=== PATIENT | female | born 1950 | race African-American/Black ===

== ENCOUNTER 2016-06-06 20:30 | Emergency (ER) | payer MEDICAID ==
[2016-06-06 21:30] LABS: ABSOLUTE BASOPHILS # (AUTO) 0.1 10^3/uL (0.0-0.2); ABSOLUTE EOSINOPHILS # (AUTO) 0.2 10^3/uL (0.0-0.6); ABSOLUTE MONOCYTES (AUTO) 0.8 10^3/uL (0.1-1.4); ABSOLUTE NEUT (AUTO) 4.1 10^3/uL (1.7-8.2); BASOPHILS % (AUTO) 0.6 % (0-2); EOSINOPHILS % (AUTO) 2.3 % (0-6); HEMATOCRIT 35.6 % (36.0-47.0); HEMOGLOBIN 11.7 g/dL (12.0-15.5); HGB HCT DIFFERENCE -0.5; LYMPHOCYTES % (AUTO) 43.4 % (13-45); MEAN CORPUSCULAR HEMOGLOBIN 31.8 pg (27.0-33.4); MEAN CORPUSCULAR VOLUME 96 fl (80-97); MONOCYTES % (AUTO) 8.6 % (3-13); RED BLOOD COUNT 3.69 10^6/uL (3.72-5.28); RED CELL DISTRIBUTION WIDTH 16.3 % (11.5-14.0); SEGMENTED NEUTROPHILS % (AUTO) 45.1 % (42-78); WHITE BLOOD COUNT 9.1 10^3/uL (4.0-10.5)
[2016-06-06 21:35] LABS: ALANINE AMINOTRANSFERASE 18 U/L (9-52); ALBUMIN 4.4 g/dL (3.5-5.0); ALKALINE PHOSPHATASE 79 U/L (38-126); ANION GAP 17 (5-19); ASPARTATE AMINO TRANSFERASE 23 U/L (14-36); BILIRUBIN,TOTAL 0.4 mg/dL (0.2-1.3); BLOOD UREA NITROGEN 31 mg/dL (7-20); CALCIUM 9.3 mg/dL (8.4-10.2); CARBON DIOXIDE 21 mmol/L (22-30); CHLORIDE 105 mmol/L (98-107); CREATINE KINASE 143 U/L (30-135); CREATININE RESULT 2.33 mg/dL (0.52-1.25); GLUCOSE 103 mg/dL (75-110); POTASSIUM 3.4 mmol/L (3.6-5.0); SODIUM 143.1 mmol/L (137-145); TOTAL PROTEIN 7.9 g/dL (6.3-8.2)
[2016-06-06 22:19] LABS: VENOUS BLOOD BASE EXCESS -4.3 mmol/L; VENOUS BLOOD HCO3 21.7 mmol/L (20-32); VENOUS BLOOD PCO2 42.9 mmHg (35-63); VENOUS BLOOD PH 7.32 (7.30-7.42)
--- NOTE | 2016-06-06 22:42 | ER Document Report ---
ED General - General Stated Complaint: UNRESPONSIVE Cannot obtain history due to: Uncooperative, Other - Poor historian Notes: Patient is a 65-year-old female with past history of chronic kidney disease and prior CVA who presents by EMS family concerns "not acting right". The patient and her at the bedside are both very poor historians and are unable to clarify exactly why they called 911 today. states "she just didn't look right". EMS found patient initially have a mildly soft systolic blood pressure of 89 which should resolve without intervention. She did receive 2 mg of intranasal Narcan without change in her mental status. At time of arrival, patient is alert and oriented and does not know why she is here in the emergency department. She denies any symptoms. Family denies a history of similar events in the past. TRAVEL OUTSIDE OF THE [place] IN LAST 30 DAYS: No - Related Data Allergies/Adverse Reactions: No Known Allergies Allergy (Verified 05/18/13 21:31) Past Medical History - General Information source: Patient, Relative, Emergency Med Personnel - Social History Smoking Status: Current Every Day Smoker Frequency of alcohol use: None Drug Abuse: None Lives with: Spouse/Significant other Family History: Reviewed & Not Pertinent - Past Medical History Cardiac Medical History: Reports: Hx Hypercholesterolemia, Hx Hypertension Pulmonary Medical History: Reports: Hx Asthma, Hx COPD Neurological Medical History: Reports: Hx Cerebrovascular Accident Endocrine Medical History: Reports: Hx Diabetes Mellitus Type 1, Hx Diabetes Mellitus Type 2 Renal/ Medical History: Reports: Hx Renal Insufficiency GI Medical History: Reports: Hx Gastroesophageal Reflux Disease Musculoskeltal Medical History: Reports Hx Arthritis - Degenerative Psychiatric Medical History: Reports: Hx Dementia - Vascular dementia Denies: Hx Depression - Immunizations Hx Diphtheria, Pertussis, Tetanus Vaccination: Yes Hx Pneumococcal Vaccination: 06/04/12 Review of Systems - Review of Systems Notes: Constitutional: Negative for fever. HENT: Negative for sore throat. Eyes: Negative for visual changes. Cardiovascular: Negative for chest pain. Respiratory: Negative for shortness of breath. Gastrointestinal: Negative for abdominal pain, vomiting or diarrhea. Genitourinary: Negative for dysuria. Musculoskeletal: Negative for back pain. Skin: Negative for rash. Neurological: Negative for headaches, weakness or numbness. 10 point ROS negative except as marked above and in HPI. Physical Exam - Vital signs Vitals: Temp Resp BP 97.4 F 13 106/53 L 06/06/16 20:34 06/06/16 20:34 06/06/16 20:34 Interpretation: Normal Notes: PHYSICAL EXAMINATION: GENERAL: Frail in appearance in no acute distress. HEAD: Atraumatic, normocephalic. EYES: Pupils equal round and reactive to light, extraocular movements intact, sclera anicteric, conjunctiva are normal. ENT: nares patent, oropharynx clear without exudates. Moderately dry mucous membranes. NECK: Normal range of motion, supple without lymphadenopathy LUNGS: Breath sounds clear to auscultation bilaterally and equal. No wheezes rales or rhonchi. HEART: Regular rate and rhythm without murmurs ABDOMEN: Soft, nontender, normoactive bowel sounds. No guarding, no rebound. No masses appreciated. EXTREMITIES: Normal range of motion, no pitting or edema. No cyanosis. NEUROLOGICAL: Face symmetric. Tongue protrudes midline. Extraocular motions intact. Pupils are 2 mm and equally reactive. Normal speech, normal gait. 5 out of 5 strength in both the distal and proximal upper and lower extremities bilaterally. Sensation is grossly intact throughout. Finger to nose testing normal. Pronator drift normal. PSYCH: Alert and oriented 4 SKIN: Warm, Dry, normal turgor, no rashes or lesions noted. Course - Re-evaluation Re-evalutation: 06/07/16 03:51 Patient presents with multiple vague complaints that did not appear to be concerning for any acute life-threatening pathology. Vitals are within normal limits at triage and at time of discharge. Physical examination is unremarkable. Patient has tolerated oral intake without difficulty. Patient was not noted to be in distress at any point during their ER visit. At this time, based on the reassuring evaluation, I do not suspect an acute IA, pulmonary embolus, aortic dissection, acute intra-abdominal pathology, stroke, or sepsis.L Aboratories are patient's baseline. Chest x-ray is clear. EKG unremarkable. Will discharge with return precautions and follow-up recommendations. Verbal discharge instructions given a the bedside and opportunity for questions given. Medication warnings reviewed. Patient is in agreement with this plan and has verbalized understanding of return precautions and the need for primary care follow-up in the next 24-72 hours. - Vital Signs Vital signs: Temp Pulse Resp BP Pulse Ox 98.4 F 19 111/51 L 96 06/06/16 23:53 12/31/16 23:01 06/06/16 23:01 06/06/16 23:01 - Laboratory Result Diagrams: 06/06/16 20:40 06/06/16 20:40 Laboratory results interpreted by me: 06/06/16 06/06/16 20:40 20:40 RBC 3.69 L Hgb 11.7 L Hct 35.6 L RDW 16.3 H Potassium 3.4 L Carbon Dioxide 21 L BUN 31 H Creatinine 2.33 H Est GFR ( Amer) 25 L Est GFR (Non-Af Amer) 21 L Creatine Kinase 143 H - Diagnostic Test Radiology reviewed: Image reviewed, Reports reviewed Radiology results interpreted by me: 06/07/16 03:52 Chest x-ray: No acute infiltrate - EKG Interpretation by Me Additional EKG results interpreted by me: 06/07/16 03:52 Normal sinus rhythm. No ST elevations or depressions. Rate is 72. QTC 438 Discharge - Discharge Clinical Impression: Altered mental status Qualifiers: Altered mental status type: transient alteration of awareness Qualified Code(s) : R40.4 - Transient alteration of awareness Chronic kidney disease Qualifiers: Chronic kidney disease stage: unspecified stage Qualified Code(s): N18.9 - Chronic kidney disease, unspecified Condition: Good Disposition: HOME, SELF-CARE Additional Instructions: The exact cause of your episode of confusion today is unclear, but all of your labs appear to be at her baseline. Your creatinine is mildly elevated compared to your normal but not to a concerning level. You do need to follow up with your primary care physician regarding today's visit and your slightly worsened kidney function.Please return to the emergency room immediately if you experience any concerning symptoms including high fevers, severe headache, chest pain, difficulty breathing, abdominal pain, slurred speech, numbness or weakness in your arms or legs, or any other symptom that concerns you. Referrals: DANY BENAVIDES MD [Primary Care Provider] - Follow up tomorrow
--- NOTE | 2016-06-06 22:43 | EKG REPORT ---
SEVERITY:- NORMAL ECG - SINUS RHYTHM : Confirmed by: Simba Stokes MD 06-Jun-2016 22:43:03
[2016-06-06 23:04] VITALS: BP 111/51
== END 2016-06-07 02:56 | disposition home or self-care (01) ==
LOC: ER 20:30
DX: E11.22 Type 2 diabetes mellitus with diabetic chronic kidney disease (principal); I12.9 Hypertensive chronic kidney disease with stage 1 through stage 4 chronic kidney disease, or unspecified chronic kidney disease; N18.9 Chronic kidney disease, unspecified; R40.4 Transient alteration of awareness; J45.909 Unspecified asthma, uncomplicated; J44.9 Chronic obstructive pulmonary disease, unspecified; F17.200 Nicotine dependence, unspecified, uncomplicated; Z86.73 Personal history of transient ischemic attack (TIA), and cerebral infarction without residual deficits
CPT/HCPCS: 36415; 71010; 80053; 82550; 82803; 82962; 84484; 85025; 93005; 93010; 99285

== ENCOUNTER 2016-08-17 11:39 | Emergency (ER) | payer MEDICARE, MEDICAID ==
[2016-08-17] MEDS ORDERED: LIDOCAINE 5% (700 MG) TRANSDERMAL ADH..PATCH TP ONE (12:09)
[2016-08-17 13:30] LABS: ABSOLUTE EOSINOPHILS # (AUTO) 0.1 10^3/uL (0.0-0.6); ABSOLUTE MONOCYTES (AUTO) 1.2 10^3/uL (0.1-1.4); ABSOLUTE NEUT (AUTO) 6.4 10^3/uL (1.7-8.2); BASOPHILS % (AUTO) 0.3 % (0-2); EOSINOPHILS % (AUTO) 0.7 % (0-6); HEMATOCRIT 34.9 % (36.0-47.0); HEMOGLOBIN 11.7 g/dL (12.0-15.5); HGB HCT DIFFERENCE 0.2; LYMPHOCYTES % (AUTO) 20.2 % (13-45); MEAN CORPUSCULAR HEMOGLOBIN 31.6 pg (27.0-33.4); MEAN CORPUSCULAR HGB CONC 33.4 g/dL (32.0-36.0); MEAN CORPUSCULAR VOLUME 95 fl (80-97); MONOCYTES % (AUTO) 12.7 % (3-13); RED BLOOD COUNT 3.68 10^6/uL (3.72-5.28); RED CELL DISTRIBUTION WIDTH 14.9 % (11.5-14.0); SEGMENTED NEUTROPHILS % (AUTO) 66.1 % (42-78); WHITE BLOOD COUNT 9.7 10^3/uL (4.0-10.5)
[2016-08-17 13:44] LABS: ANION GAP 9 (5-19); BLOOD UREA NITROGEN 17 mg/dL (7-20); CARBON DIOXIDE 26 mmol/L (22-30); CHLORIDE 108 mmol/L (98-107); CREATINE KINASE 56 U/L (30-135); CREATININE RESULT 1.64 mg/dL (0.52-1.25); GLUCOSE 87 mg/dL (75-110); MAGNESIUM 1.8 mg/dL (1.6-2.3); POTASSIUM 4.7 mmol/L (3.6-5.0); SODIUM 142.5 mmol/L (137-145)
[2016-08-17 14:53] LABS: APPEARANCE,URINE CLEAR; BILIRUBIN,URINE NEGATIVE (NEGATIVE); GLUCOSE, URINE NEGATIVE (NEGATIVE); KETONES,URINE NEGATIVE (NEGATIVE); LEUKOCYTE ESTERASE,URINE NEGATIVE (NEGATIVE); NITRITE,URINE NEGATIVE (NEGATIVE); PROTEIN,URINE NEGATIVE (NEGATIVE); URINE SPECIFIC GRAVITY 1.006; UROBILINOGEN,URINE NEGATIVE mg/dL (<2.0)
[2016-08-17] MEDS ORDERED: TRAMADOL HCL 50 MG TABLET PO ONE (15:25)
[2016-08-17] MEDS ORDERED: PREDNISONE 20 MG TABLET PO ONE (18:30)
--- NOTE | 2016-08-17 18:36 | ER Document Report ---
ED General - General Chief Complaint: Other Stated Complaint: LEG PAIN TRAVEL OUTSIDE OF THE [place] IN LAST 30 DAYS: No - HPI Patient complains to provider of: right leg pain difficulty ambulating Notes: Patient presents with a history of vascular dementia stroke with right-sided weakness stating right leg pain. Most of the initial history of present illness was obtained by EMS stating that the patient apparently normally relates today is having pain therefore difficulty in him bleeding could not walk. Otherwise, evaluation patient is a noted 2-3 waxing waning patient is a delightful otherwise has no complaints. States that the pain starts in the back of her leg is elevated at her foot. Patient is able to show me her foot by bending her leg at the knee. - Related Data Allergies/Adverse Reactions: No Known Allergies Allergy (Verified 05/18/13 21:31) Past Medical History - Social History Smoking Status: Unknown if Ever Smoked Family History: Reviewed & Not Pertinent - Past Medical History Cardiac Medical History: Reports: Hx Hypercholesterolemia, Hx Hypertension Pulmonary Medical History: Reports: Hx Asthma, Hx COPD Neurological Medical History: Reports: Hx Cerebrovascular Accident Endocrine Medical History: Reports: Hx Diabetes Mellitus Type 1, Hx Diabetes Mellitus Type 2 Renal/ Medical History: Reports: Hx Renal Insufficiency GI Medical History: Reports: Hx Gastroesophageal Reflux Disease Musculoskeltal Medical History: Reports Hx Arthritis - Degenerative Psychiatric Medical History: Reports: Hx Dementia - Vascular dementia Denies: Hx Depression - Immunizations Hx Diphtheria, Pertussis, Tetanus Vaccination: Yes Hx Pneumococcal Vaccination: 06/04/12 Review of Systems - Review of Systems -: Yes ROS unobtainable due to patient's medical condition - History of dementia Physical Exam - Vital signs Vitals: Temp Pulse Resp BP Pulse Ox 98.4 F 96 16 119/57 L 98 08/17/16 11:45 08/17/16 11:45 08/17/16 11:45 08/17/16 11:45 08/17/16 11:45 Interpretation: Normal - General General appearance: Appears well, Alert - HEENT Head: Normocephalic, Atraumatic Eyes: Normal Pupils: PERRL - Respiratory Respiratory status: No respiratory distress Chest status: Nontender Breath sounds: Normal Chest palpation: Normal - Cardiovascular Rhythm: Regular Heart sounds: Normal auscultation Murmur: No - Abdominal Inspection: Normal Distension: No distension Bowel sounds: Normal Tenderness: Nontender Organomegaly: No organomegaly - Back Back: Normal, Nontender - Extremities General upper extremity: Normal inspection, Nontender, Normal color, Normal ROM , Normal temperature General lower extremity: Normal inspection, Nontender, Normal color, Other - Patient is able to lift her left leg off the stretcher. Patient is able to bend her right leg at the knee. Degenerative reflexes are intact bilaterally. She does have some pain to palpation of the right hip. 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 I did explain that I'm concerned patient may of had a cerebral incident however she would be out of the window for any thrombolytic therapy. is very concerned and very boisterous telemetry have to find out the reason why he is very assisted the patient normally is able ambulate. Upon further review of other notes patient does have a history of CVA with right -sided weakness. Unclear if this ever resolved. Unclear patient's examination today is chronic or new. I did discuss with patient's PCP head CT and workup showed no critical pathology. PCP Dr. Benavides recommended MRI plan being if MRI shows acute process to admit the patient if normal patient should be discharged home and follow-up in his office and home physical therapy set up. The MRI did not show any acute pathology did discuss with patient at bedside of the MRI results patient has been able to tolerate a meal here no signs of either stress patient again is able to bend her right leg at the knee. Explained that we will give her a prescription for a walker I will consult discharge planning for home physical therapy and that the patient should call her PCP for follow-up appointment tomorrow. Patient smiles and states agreement Later informed by nursing staff has called ER is very upset about being discharged home. Charge nurse to explained to patient that PCP will have to admit and at this time with a negative workup he would not admit the patient. 08/21/16 10:10 - Vital Signs Vital signs: Temp Pulse Resp BP Pulse Ox 98.6 F 73 14 125/63 96 08/17/16 23:14 08/17/16 23:14 08/17/16 23:14 08/17/16 23:14 08/17/16 23:14 - Laboratory Result Diagrams: 08/17/16 13:21 08/17/16 13:21 Laboratory results interpreted by me: 08/17/16 08/17/16 13:21 13:21 RBC 3.68 L Hgb 11.7 L Hct 34.9 L RDW 14.9 H Chloride 108 H Creatinine 1.64 H Est GFR ( Amer) 38 L Est GFR (Non-Af Amer) 32 L Discharge - Discharge Clinical Impression: leg pain, Abnormality of gait, Personal history of cerebrovascular accident with residual effects Condition: Good Disposition: HOME, SELF-CARE Instructions: Leg Pain Nonspecific ([facility]) Additional Instructions: At this time your CT scan of your head your MRI of her head your laboratory studies showed no clear etiology of why you're having pain your leg and difficulty in relating. X-ray of her hip is also negative. Possibility may be experiencing sciatica. I would highly recommend obtaining a walker taking medications as prescribed. I discussed your case with your primary care physician Dr. Benavides who agrees with this care plan. Please follow-up with his office tomorrow for follow-up appointment. We will also consult our resource management planner to have you evaluated for home physical therapy. Prescriptions: Prednisone [Deltasone 20 mg Tablet] 2 tab PO DAILY 4 Days Tramadol HCl [Ultram 50 mg Tablet] 50 mg PO ASDIR PRN #10 tablet PRN Reason: Walker [Ultra-Light Rollator] 1 each MC DAILY #1 each Referrals: DANY BENAVIDES MD [Primary Care Provider] - Follow up tomorrow
[2016-08-17 23:23] VITALS: BP 125/63
== END 2016-08-17 23:30 | disposition home or self-care (01) ==
LOC: ER 11:39
DX: I69.30 Unspecified sequelae of cerebral infarction (principal); M79.604 Pain in right leg; R53.1 Weakness; R26.9 Unspecified abnormalities of gait and mobility
CPT/HCPCS: 99284; 51701; 36415; 82550; 83735; 85025; 80048; 81001; 70551; 73502; 70450; A9270 ×2; J7512

== ENCOUNTER 2017-02-25 18:11 | Observation (INO) | payer MEDICARE, MEDICAID ==
--- NOTE | 2017-02-25 18:45 | ER Document Report ---
ED General - General Stated Complaint: CHEST PAIN Time Seen by Provider: 02/25/17 18:27 Mode of Arrival: Ambulatory Information source: Patient TRAVEL OUTSIDE OF THE [place] IN LAST 30 DAYS: No - HPI Patient complains to provider of: Chest pain, altered mental status Onset: Just prior to arrival Associated symptoms: Chest pain Notes: Patient is a 66-year-old female brought to the emergency room by EMS, EMS reports that her complaint was chest pain, however patient appears somewhat confused and is a very poor historian, review of previous records shows that patient does have a history of dementia, she reports having some chest pain earlier but it seems to be resolved at this point in time - Related Data Allergies/Adverse Reactions: No Known Allergies Allergy (Verified 02/25/17 20:04) Past Medical History - General Information source: Emergency Med Personnel - Social History Smoking Status: Unknown if Ever Smoked Family History: Reviewed & Not Pertinent - Past Medical History Cardiac Medical History: Reports: Hx Hypercholesterolemia, Hx Hypertension Pulmonary Medical History: Reports: Hx Asthma, Hx COPD Neurological Medical History: Reports: Hx Cerebrovascular Accident Endocrine Medical History: Reports: Hx Diabetes Mellitus Type 1, Hx Diabetes Mellitus Type 2 Renal/ Medical History: Reports: Hx Renal Insufficiency GI Medical History: Reports: Hx Gastroesophageal Reflux Disease Musculoskeltal Medical History: Reports Hx Arthritis - Degenerative Psychiatric Medical History: Reports: Hx Dementia - Vascular dementia Denies: Hx Depression - Immunizations Hx Diphtheria, Pertussis, Tetanus Vaccination: Yes Hx Pneumococcal Vaccination: 06/04/12 Review of Systems - Review of Systems -: Yes ROS unobtainable due to patient's medical condition Cardiovascular: Chest pain Neurological/Psychological: Confusion Physical Exam - Vital signs Vitals: Resp Pulse Ox 18 95 02/25/17 19:00 02/25/17 19:00 Interpretation: Normal - General General appearance: Alert In distress: None - HEENT Head: Normocephalic, Atraumatic Eyes: Normal Conjunctiva: Normal Extraocular movements intact: Yes Eyelashes: Normal Pupils: PERRL Mucous membranes: Dry - Respiratory Respiratory status: No respiratory distress Chest status: Nontender Breath sounds: Normal Chest palpation: Normal - Cardiovascular Rhythm: Regular Heart sounds: Normal auscultation Murmur: No - Abdominal Inspection: Normal Distension: No distension Bowel sounds: Normal Tenderness: Nontender Organomegaly: No organomegaly - Back Back: Normal, Nontender - Extremities General upper extremity: Normal inspection General lower extremity: Normal inspection - Neurological Cognition: Confused Qasim Coma Scale Eye Opening: Spontaneous Qasim Coma Scale Verbal: Confused Qasim Coma Scale Motor: Obeys Commands [place] Coma Scale Total: 14 - Skin Skin Temperature: Warm Skin Moisture: Dry Skin Color: Normal Course - Re-evaluation Re-evalutation: 02/25/17 21:56 Patient was discussed with primary care provider, Dr. Lala, who reports that her mental status fluctuates but he is agreeable to placing patient in the hospital on observation status for acute renal insufficiency with hypokalemia - Vital Signs Vital signs: Temp Pulse Resp BP Pulse Ox 97.6 F 14 108/55 L 100 02/25/17 22:29 02/25/17 23:00 02/25/17 23:00 02/25/17 23:00 - Laboratory Result Diagrams: 02/25/17 20:35 02/25/17 20:35 Laboratory results interpreted by me: 02/25/17 02/25/17 02/25/17 20:35 20:35 21:30 RBC 3.60 L Hgb 11.2 L Hct 32.0 L RDW 16.5 H Potassium 2.6 L* BUN 23 H Creatinine 2.12 H Est GFR ( Amer) 28 L Est GFR (Non-Af Amer) 23 L Lactic Acid 2.5 H Direct Bilirubin 0.5 H - Diagnostic Test Radiology reviewed: Image reviewed, Reports reviewed - EKG Interpretation by Me Rate: Normal Rhythm: A.Fib - Transfer of Care Care transferred to following provider: Dr. Lala Discharge - Discharge Clinical Impression: Encephalopathy, Acute kidney injury, Hypokalemia Condition: Stable Disposition: ADMITTED OBSERVATION Admitting Provider: Dai Unit Admitted: Telemetry
--- NOTE | 2017-02-25 20:08 | RADIOLOGY REPORT (SQ) ---
EXAM DESCRIPTION: CT HEAD WITHOUT COMPLETED DATE/TIME: 02/25/2017 8:00 pm REASON FOR STUDY: ams COMPARISON: None. TECHNIQUE: Axial images acquired through the brain without intravenous contrast. Images reviewed wi th bone, brain and subdural windows. Images stored on PACS. All CT scanners at this facility use dose modulation, iterative reconstruction, and/or weight based d osing when appropriate to reduce radiation dose to as low as reasonably achievable (ALARA). [facility]: Dose Right [facility]: CareDose [facility]: Dose Right [facility]: Teradose 4D [facility]: Movea RADIATION DOSE: Up-to-date CT equipment and radiation dose reduction techniques were employed. CTDIv ol: 64.6 mGy. DLP: 1034 mGy-cm.mGy. LIMITATIONS: None. FINDINGS: VENTRICLES: Prominent. CEREBRUM: No masses. No hemorrhage. No midline shift. Areas of low density in the white matter mos t likely due to chronic micro-vascular ischemic change. No evidence for acute infarction. CEREBELLUM: No masses. No hemorrhage. No alteration of density. No evidence for acute infarction. EXTRAAXIAL SPACES: Age-related involutional change. No fluid collections. No masses. ORBITS AND GLOBE: No intra- or extraconal masses. Normal contour of globe without masses. CALVARIUM: No fracture. PARANASAL SINUSES: No fluid or mucosal thickening. SOFT TISSUES: No mass or hematoma. OTHER: No other significant finding. IMPRESSION: CHRONIC CHANGES OF ATROPHY AND MICROVASCULAR ISCHEMIA. NO ACUTE PROCESS. EVIDENCE OF ACUTE STROKE: NO. TECHNICAL DOCUMENTATION: JOB ID: [id number] Quality ID # [id number]: Final reports with documentation of one or more dose reduction techniques (e.g., Au tomated exposure control, adjustment of the mA and/or kV according to patient size, use of iterative reconstruction technique) 2010 [employer]- All Rights Reserved
--- NOTE | 2017-02-25 20:11 | RADIOLOGY REPORT (SQ) ---
EXAM DESCRIPTION: CHEST SINGLE VIEW COMPLETED DATE/TIME: 02/25/2017 8:03 pm REASON FOR STUDY: cp COMPARISON: 06/06/2016 EXAM PARAMETERS: NUMBER OF VIEWS: One view. TECHNIQUE: Single frontal radiographic view of the chest acquired. RADIATION DOSE: NA LIMITATIONS: None. FINDINGS: LUNGS AND PLEURA: No opacities, masses or pneumothorax. No pleural effusion. MEDIASTINUM AND HILAR STRUCTURES: No masses. Contour normal. HEART AND VASCULAR STRUCTURES: Heart normal in size. Normal vasculature. BONES: No acute findings. HARDWARE: None in the chest. OTHER: No other significant finding. IMPRESSION: NO ACUTE RADIOGRAPHIC FINDING IN THE CHEST. TECHNICAL DOCUMENTATION: JOB ID: [id number]
[2017-02-25 20:51] LABS: ABSOLUTE BASOPHILS # (AUTO) 0.1 10^3/uL (0.0-0.2); ABSOLUTE EOSINOPHILS # (AUTO) 0.1 10^3/uL (0.0-0.6); ABSOLUTE LYMPHOCYTES (AUTO) 3.6 10^3/uL (0.5-4.7); ABSOLUTE MONOCYTES (AUTO) 0.5 10^3/uL (0.1-1.4); ABSOLUTE NEUT (AUTO) 4.1 10^3/uL (1.7-8.2); BASOPHILS % (AUTO) 1.5 % (0-2); EOSINOPHILS % (AUTO) 1.7 % (0-6); HEMOGLOBIN 11.2 g/dL (12.0-15.5); HGB HCT DIFFERENCE 1.6; LYMPHOCYTES % (AUTO) 42.7 % (13-45); MEAN CORPUSCULAR HGB CONC 34.9 g/dL (32.0-36.0); MEAN CORPUSCULAR VOLUME 89 fl (80-97); MONOCYTES % (AUTO) 6.4 % (3-13); RED CELL DISTRIBUTION WIDTH 16.5 % (11.5-14.0); SEGMENTED NEUTROPHILS % (AUTO) 47.7 % (42-78); WHITE BLOOD COUNT 8.5 10^3/uL (4.0-10.5)
[2017-02-25 21:16] LABS: ALANINE AMINOTRANSFERASE 27 U/L (9-52); ALBUMIN 3.7 g/dL (3.5-5.0); ALKALINE PHOSPHATASE 87 U/L (38-126); ANION GAP 15 (5-19); ASPARTATE AMINO TRANSFERASE 15 U/L (14-36); BILIRUBIN,DIRECT 0.5 mg/dL (0.0-0.4); BILIRUBIN,TOTAL 0.7 mg/dL (0.2-1.3); BLOOD UREA NITROGEN 23 mg/dL (7-20); CALCIUM 9.4 mg/dL (8.4-10.2); CARBON DIOXIDE 23 mmol/L (22-30); CHLORIDE 100 mmol/L (98-107); CREATINE KINASE 42 U/L (30-135); CREATININE RESULT 2.12 mg/dL (0.52-1.25); GLUCOSE 85 mg/dL (75-110); LIPASE 58.4 U/L (23-300); SODIUM 137.7 mmol/L (137-145); TOTAL PROTEIN 6.8 g/dL (6.3-8.2)
[2017-02-25 21:20] LABS: POTASSIUM 2.6 mmol/L (3.6-5.0)
[2017-02-25 21:21] LABS: CREATINE KINASE MB < 0.22 ng/mL (<4.55); TROPONIN I < 0.012 ng/mL
[2017-02-25 21:21] LABS: APPEARANCE,URINE CLEAR; BILIRUBIN,URINE NEGATIVE (NEGATIVE); GLUCOSE, URINE NEGATIVE (NEGATIVE); KETONES,URINE NEGATIVE (NEGATIVE); LEUKOCYTE ESTERASE,URINE NEGATIVE (NEGATIVE); NITRITE,URINE NEGATIVE (NEGATIVE); PROTEIN,URINE NEGATIVE (NEGATIVE); URINE SPECIFIC GRAVITY 1.004; UROBILINOGEN,URINE NEGATIVE mg/dL (<2.0)
[2017-02-25] MEDS ORDERED: POTASSIUM CHLORIDE 10 MEQ TABLET.SA PO ONE (21:39)
[2017-02-25 21:40] LABS: PARTIAL THROMBOPLASTIN TIME 34.5 SEC (23.5-35.8); PROTHROMBIN TIME 14.6 SEC (11.4-15.4)
[2017-02-25 21:41] LABS: URINE BARBITURATES SCREEN NEGATIVE; URINE METHADONE SCREEN NEGATIVE; URINE OPIATES LOW NEGATIVE; URINE PHENCYCLIDINE SCREEN NEGATIVE
[2017-02-25 22:03] LABS: VENOUS BLOOD BASE EXCESS -1.4 mmol/L; VENOUS BLOOD HCO3 25.2 mmol/L (20-32); VENOUS BLOOD PCO2 49.6 mmHg (35-63); VENOUS BLOOD PH 7.32 (7.30-7.42)
[2017-02-25] MEDS: POTASSI CL 20 MEQ/50 ML RIDER 20 MEQ/50 ML RTUPB IV SCH (22:45)
[2017-02-26] MEDS ORDERED: POTASSI CL 20 MEQ/50 ML RIDER 20 MEQ/50 ML RTUPB IV ONE (01:10)
[2017-02-26] MEDS: POTASSI CL 20 MEQ/50 ML RIDER 20 MEQ/50 ML RTUPB IV SCH (01:11)
[2017-02-26 02:33] LABS: ANION GAP 13 (5-19); BLOOD UREA NITROGEN 23 mg/dL (7-20); CALCIUM 9.3 mg/dL (8.4-10.2); CARBON DIOXIDE 26 mmol/L (22-30); CHLORIDE 105 mmol/L (98-107); CREATINE KINASE 39 U/L (30-135); CREATININE RESULT 2.14 mg/dL (0.52-1.25); GLUCOSE 93 mg/dL (75-110); SODIUM 143.5 mmol/L (137-145)
[2017-02-26 02:56] LABS: CREATINE KINASE MB < 0.22 ng/mL (<4.55); TROPONIN I < 0.012 ng/mL
[2017-02-26 07:08] LABS: ANION GAP 9 (5-19); BLOOD UREA NITROGEN 23 mg/dL (7-20); CALCIUM 9.3 mg/dL (8.4-10.2); CARBON DIOXIDE 25 mmol/L (22-30); CHLORIDE 110 mmol/L (98-107); CREATININE RESULT 2.01 mg/dL (0.52-1.25); GLUCOSE 87 mg/dL (75-110); POTASSIUM 3.3 mmol/L (3.6-5.0); SODIUM 143.8 mmol/L (137-145)
--- NOTE | 2017-02-26 07:21 | EKG REPORT ---
SEVERITY:- ABNORMAL ECG - SINUS RHYTHM NONSPECIFIC T ABNORMALITIES, LATERAL LEADS BORDERLINE PROLONGED QT INTERVAL : Confirmed by: Simba Stokes MD 26-Feb-2017 07:20:53
[2017-02-26] MEDS ORDERED: 1/2 NORMAL SALINE 1,000 ML IV PRN (08:01)
[2017-02-26] MEDS ORDERED: MEMANTINE HCL PO PRN (17:31)
[2017-02-26] MEDS ORDERED: (PENDING PHARMACY ID) (Nifedipine [Nifedipine Er] 90 MG) PO SCH (17:45)
[2017-02-26] MEDS ORDERED: (PENDING PHARMACY ID) (Pramipexole Di-Hcl [Pramipexole Dihydrochloride] 0.125 MG) PO SCH (17:45)
[2017-02-26] MEDS ORDERED: (PENDING PHARMACY ID) (Losartan/Hydrochlorothiazide [Losartan-Hctz 100-25 Mg Tab] 1 TAB) PO SCH (17:45)
[2017-02-26 18:09] LABS: ANION GAP 16 (5-19); BLOOD UREA NITROGEN 23 mg/dL (7-20); CALCIUM 9.5 mg/dL (8.4-10.2); CARBON DIOXIDE 22 mmol/L (22-30); CHLORIDE 107 mmol/L (98-107); CREATININE RESULT 1.72 mg/dL (0.52-1.25); GLUCOSE 74 mg/dL (75-110); POTASSIUM 3.7 mmol/L (3.6-5.0); SODIUM 144.6 mmol/L (137-145)
--- NOTE | 2017-02-26 19:00 | PDOC H&P ---
History of Present Illness Admission Date/PCP: 02/25/17 23:42 DANY BENAVIDES MD History of Present Illness: MICAH WOMACK is a 66 year old female, she has a history of vascular dementia, type 2 diabetes mellitus complicated with chronic kidney disease stage III she came to the emergency room last night for evaluation of confusion , she is a poor historian, in the emergency room she was found to have hypokalemia, potassium 2.6 and elevated serum creatinine. She was admitted for evaluation and management. When I saw her on the floor she is oriented to time place or person she knows who I am and she wants to go home. She has no chest pain or shortness of breath there is no syncope. Past Medical History Cardiac Medical History: Reports: Hyperlipidema, Hypertension Pulmonary Medical History: Reports: Asthma, Chronic Obstructive Pulmonary Disease (COPD) Endocrine Medical History: Reports: Diabetes Mellitus Type 2 GI Medical History: Reports: Gastroesophageal Reflux Disease Musculoskeltal Medical History: Reports: Arthritis - Degenerative Psychiatric Medical History: Reports: Dementia - Vascular dementia Social History Lives with: Spouse/Significant other Smoking Status: Current Every Day Smoker Frequency of Alcohol Use: None Hx Recreational Drug Use: No Drugs: None Hx Prescription Drug Abuse: No - Advance Directive Resuscitation Status: Full Code Family History Family History: Reviewed & Not Pertinent Parental Family History Reviewed: Yes Children Family History Reviewed: Yes Sibling(s) Family History Reviewed.: Yes Medication/Allergy Home Medications: Aspirin/Dipyridamole [Aggrenox 25 mg/200 mg Capsule SA] 1 cap.sr PO Q12 Atorvastatin Calcium [Lipitor 20 mg Tablet] 20 mg PO QHS 02/26/17 Cyanocobalamin (Vitamin B-12) [Vitamin B-12 Inj 1000 Mcg/1 ml Vial] 1,000 mcg IM .MONTHLY 02/26/17 Donepezil HCl [Aricept 5 mg Tablet] 5 mg PO DAILY 02/26/17 Exenatide Microspheres [Bydureon Pen] 2 mg SQ MO@1000 02/26/17 Exenatide [Byetta Inj 10 Mcg/0.04 ml 2.4 ml Pen.injctr] 10 mcg SUBCUT BIDACBS Glipizide [Glocotrol 5 Mg Tablet] 5 mg PO DAILY 02/26/17 Losartan/Hydrochlorothiazide [Losartan-Hctz 100-25 mg Tab] 1 tab PO DAILY Memantine HCl [Namenda] 1 each PO ASDIR PRN 02/26/17 Nifedipine [Nifedipine ER] 90 mg PO DAILY 02/26/17 Pioglitazone HCl [Actos 15 mg Tablet] 15 mg PO DAILY 02/26/17 Pramipexole Di-HCl [Pramipexole Dihydrochloride] 0.125 mg PO Q12 02/26/17 Trazodone HCl [Desyrel 50 mg Tablet] 50 mg PO QHS 02/26/17 Allergies/Adverse Reactions: No Known Allergies Allergy (Verified 02/25/17 20:04) Review of Systems Cardiovascular: ABSENT: chest pain, dyspnea on exertion, edema, orthropnea, palpitations Respiratory: ABSENT: cough, hemoptysis Gastrointestinal: ABSENT: abdominal pain, constipation, diarrhea, hematemesis, hematochezia, nausea, vomiting Genitourinary: ABSENT: dysuria, hematuria Musculoskeletal: ABSENT: joint swelling Integumentary: ABSENT: rash, wounds Neurological: ABSENT: abnormal gait, abnormal speech, confusion, dizziness, focal weakness, syncope Psychiatric: ABSENT: anxiety, depression, homidical ideation, suicidal ideation Endocrine: ABSENT: cold intolerance, heat intolerance, menstrual abnormalities, polydipsia, polyuria Hematologic/Lymphatic: ABSENT: easy bleeding, easy bruising, lymphadenopathy Physical Exam Vital Signs: Temp Pulse Resp BP Pulse Ox 97.5 F 83 16 101/58 L 100 02/26/17 16:16 02/26/17 16:16 02/26/17 16:16 02/26/17 16:16 02/26/17 16:16 Intake & Output 02/25/17 02/26/17 02/27/17 06:59 06:59 06:59 Intake Total 240 480 Balance 240 480 General appearance: PRESENT: no acute distress, well-developed, well-nourished Head exam: PRESENT: atraumatic, normocephalic Eye exam: PRESENT: PERRLA Ear exam: PRESENT: normal external ear exam Mouth exam: PRESENT: moist Neck exam: PRESENT: full ROM Cardiovascular exam: PRESENT: RRR, +S1, +S2 Vascular exam: PRESENT: normal capillary refill GI/Abdominal exam: PRESENT: normal bowel sounds, soft Rectal exam: PRESENT: deferred Neurological exam: PRESENT: alert, CN II-XII grossly intact Psychiatric exam: PRESENT: appropriate affect, normal mood Skin exam: PRESENT: dry, intact, warm Results Laboratory Results: 02/26/17 17:46 02/26/17 02/26/17 02/26/17 02:08 02:08 06:00 Sodium 143.5 143.8 Potassium 3.0 L* 3.3 L Chloride 105 110 H Carbon Dioxide 26 25 Anion Gap 13 9 BUN 23 H 23 H Creatinine 2.14 H 2.01 H Est GFR ( Amer) 28 L 30 L Est GFR (Non-Af Amer) 23 L 25 L Glucose 93 87 Lactic Acid 2.7 H Calcium 9.3 9.3 02/26/17 17:46 Sodium 144.6 Potassium 3.7 Chloride 107 Carbon Dioxide 22 Anion Gap 16 BUN 23 H Creatinine 1.72 H Est GFR ( Amer) 36 L Est GFR (Non-Af Amer) 30 L Glucose 74 L Lactic Acid Calcium 9.5 02/26/17 02/26/17 02:08 02:08 Creatine Kinase 39 CK-MB (CK-2) < 0.22 Troponin I < 0.012 Impressions: Chest X-Ray 02/25/17 18:44 IMPRESSION: NO ACUTE RADIOGRAPHIC FINDING IN THE CHEST. Head CT 02/25/17 18:44 IMPRESSION: CHRONIC CHANGES OF ATROPHY AND MICROVASCULAR ISCHEMIA. NO ACUTE PROCESS. EVIDENCE OF ACUTE STROKE: NO. Assessment & Plan - Diagnosis (1) Hypokalemia Is this a current diagnosis for this admission?: Yes Plan: Patient is admitted for observation and admission the potassium is 2.6, (2) Acute kidney injury Is this a current diagnosis for this admission?: Yes Plan: She has acute kidney injury due to dehydration (3) Vascular dementia Qualifiers: Dementia behavioral disturbance: without behavioral disturbance Is this a current diagnosis for this admission?: Yes
--- NOTE | 2017-02-26 19:03 | PDOC DISCHARGE SUMMARY ---
General - Admit/Disc Date/PCP Admission Date/Primary Care Provider: 02/25/17 23:42 DANY BENAVIDES MD Discharge Date: 02/26/17 - Discharge Diagnosis (1) Hypokalemia Is this a current diagnosis for this admission?: Yes (2) Acute kidney injury Is this a current diagnosis for this admission?: Yes (3) Vascular dementia Is this a current diagnosis for this admission?: Yes - Additional Information Resuscitation Status: Full Code Home Medications: Aspirin/Dipyridamole [Aggrenox 25 mg/200 mg Capsule SA] 1 cap.sr PO Q12 Atorvastatin Calcium [Lipitor 20 mg Tablet] 20 mg PO QHS 02/26/17 Cyanocobalamin (Vitamin B-12) [Vitamin B-12 Inj 1000 Mcg/1 ml Vial] 1,000 mcg IM .MONTHLY 02/26/17 Donepezil HCl [Aricept 5 mg Tablet] 5 mg PO DAILY 02/26/17 Exenatide Microspheres [Bydureon Pen] 2 mg SQ MO@1000 02/26/17 Exenatide [Byetta Inj 10 Mcg/0.04 ml 2.4 ml Pen.injctr] 10 mcg SUBCUT BIDACBS Glipizide [Glucotrol 5 mg Tablet] 5 mg PO DAILY 02/26/17 Losartan/Hydrochlorothiazide [Losartan-Hctz 100-25 mg Tab] 1 tab PO DAILY Memantine HCl [Namenda] 1 each PO ASDIR PRN 02/26/17 Nifedipine [Nifedipine ER] 90 mg PO DAILY 02/26/17 Pioglitazone HCl [Actos 15 mg Tablet] 15 mg PO DAILY 02/26/17 Pramipexole Di-HCl [Pramipexole Dihydrochloride] 0.125 mg PO Q12 02/26/17 Trazodone HCl [Desyrel 50 mg Tablet] 50 mg PO QHS 02/26/17 History of Present Illness History of Present Illness: MICAH WOMACK is a 66 year old female, she has a history of vascular dementia, type 2 diabetes mellitus complicated with chronic kidney disease stage III she came to the emergency room last night for evaluation of confusion , she is a poor historian, in the emergency room she was found to have hypokalemia, potassium 2.6 and elevated serum creatinine. She was admitted for evaluation and management. When I saw her on the floor she is oriented to time place or person she knows who I am and she wants to go home. She has no chest pain or shortness of breath there is no syncope. Hospital Course Hospital Course: She was admitted for observation for the management of hyperkalemia, acute kidney injury. The potassium was corrected with IV and p.o. replacement therapy , she was treated with IV fluid for the correlation of the kidney injury, patient was agreeable to be discharged home today Physical Exam Vital Signs: Temp Pulse Resp BP Pulse Ox 97.5 F 83 16 101/58 L 100 02/26/17 16:16 02/26/17 16:16 02/26/17 16:16 02/26/17 16:16 02/26/17 16:16 Intake & Output 02/25/17 02/26/17 02/27/17 06:59 06:59 06:59 Intake Total 240 480 Balance 240 480 General appearance: PRESENT: no acute distress Eye exam: PRESENT: PERRLA Respiratory exam: PRESENT: clear to auscultation chris Cardiovascular exam: PRESENT: +S1, +S2 GI/Abdominal exam: PRESENT: soft Neurological exam: PRESENT: alert Results Laboratory Results: 02/26/17 17:46 02/26/17 02/26/17 02/26/17 02:08 02:08 06:00 Sodium 143.5 143.8 Potassium 3.0 L* 3.3 L Chloride 105 110 H Carbon Dioxide 26 25 Anion Gap 13 9 BUN 23 H 23 H Creatinine 2.14 H 2.01 H Est GFR ( Amer) 28 L 30 L Est GFR (Non-Af Amer) 23 L 25 L Glucose 93 87 Lactic Acid 2.7 H Calcium 9.3 9.3 02/26/17 17:46 Sodium 144.6 Potassium 3.7 Chloride 107 Carbon Dioxide 22 Anion Gap 16 BUN 23 H Creatinine 1.72 H Est GFR ( Amer) 36 L Est GFR (Non-Af Amer) 30 L Glucose 74 L Lactic Acid Calcium 9.5 02/26/17 02/26/17 02:08 02:08 Creatine Kinase 39 CK-MB (CK-2) < 0.22 Troponin I < 0.012 Impressions: Chest X-Ray 02/25/17 18:44 IMPRESSION: NO ACUTE RADIOGRAPHIC FINDING IN THE CHEST. Head CT 02/25/17 18:44 IMPRESSION: CHRONIC CHANGES OF ATROPHY AND MICROVASCULAR ISCHEMIA. NO ACUTE PROCESS. EVIDENCE OF ACUTE STROKE: NO.
[2017-02-26] MEDS ORDERED: GLIPIZIDE 5 MG TABLET PO ONE (19:30)
[2017-02-26] MEDS ORDERED: ASPIRIN/DIPYRIDAMOLE 25-200 MG 1 CAP.SR CPMP.12HR PO ONE (19:30)
[2017-02-26] MEDS ORDERED: PIOGLITAZONE HCL 15 MG TABLET PO ONE (19:30)
[2017-02-26] MEDS ORDERED: DONEPEZIL HCL 5 MG TABLET PO ONE (19:30)
[2017-02-26 19:35] VITALS: BP 113/52
[2017-02-26] MEDS ORDERED: ATORVASTATIN CALCIUM 20 MG TABLET PO SCH (22:00)
[2017-02-26] MEDS ORDERED: PRAMIPEXOLE DI-HCL 0.25 MG TABLET PO SCH (22:00)
[2017-02-26] MEDS ORDERED: TRAZODONE HCL 50 MG TABLET PO SCH (22:00)
[2017-02-27] MEDS ORDERED: GLIPIZIDE 5 MG TABLET PO SCH (08:00)
[2017-02-27] MEDS ORDERED: HYDROCHLOROTHIAZIDE 25 MG TABLET PO SCH (10:00)
[2017-02-27] MEDS ORDERED: LOSARTAN POTASSIUM 50 MG TABLET PO SCH (10:00)
[2017-02-27] MEDS ORDERED: DONEPEZIL HCL 5 MG TABLET PO SCH (10:00)
[2017-02-27] MEDS ORDERED: NIFEDIPINE 30 MG TAB.ER.24 PO SCH (10:00)
[2017-02-27] MEDS ORDERED: PIOGLITAZONE HCL 15 MG TABLET PO SCH (10:00)
[2017-02-27] MEDS ORDERED: ASPIRIN/DIPYRIDAMOLE 25-200 MG 1 CAP.SR CPMP.12HR PO SCH (10:00)
[2017-03-01] MEDS ORDERED: (PENDING PHARMACY ID) (Exenatide Microspheres [Bydureon Pen] 2 MG) SQ SCH (10:00)
[2017-03-25] MEDS ORDERED: CYANOCOBALAMIN (VITAMIN B-12) INJ 1000 MCG/1 ML VIAL IM SCH (10:00)
== END 2017-02-26 21:57 | disposition home or self-care (01) ==
LOC: ER 18:11 → EH 22:00 → UNDOADMOB 22:00 → 4N 23:36 → EH 23:36 → 4N 23:42 → EH 23:42
PROVIDERS: ADMIT Internal Medicine; ATTEND Internal Medicine
DX: E87.6 Hypokalemia (principal); F01.50 Vascular dementia, unspecified severity, without behavioral disturbance, psychotic disturbance, mood disturbance, and anxiety; E86.0 Dehydration; N17.9 Acute kidney failure, unspecified; N18.3 Chronic kidney disease, stage 3 (moderate); E11.22 Type 2 diabetes mellitus with diabetic chronic kidney disease; I12.9 Hypertensive chronic kidney disease with stage 1 through stage 4 chronic kidney disease, or unspecified chronic kidney disease; M19.90 Unspecified osteoarthritis, unspecified site; F17.200 Nicotine dependence, unspecified, uncomplicated; I48.91 Unspecified atrial fibrillation; E78.5 Hyperlipidemia, unspecified; Z79.82 Long term (current) use of aspirin; Z79.899 Other long term (current) drug therapy; Z79.84 Long term (current) use of oral hypoglycemic drugs; Z86.73 Personal history of transient ischemic attack (TIA), and cerebral infarction without residual deficits
CPT/HCPCS: 36415; 51701; 70450; 71010; 80048; 80053; 80307; 81001; 82550; 82553; 82803; 83605; 83690; 83735; 83880; 84484; 85025; 85610; 85730; 87040; 87086; 93005; 93010; 96365; 99285; G0378; J3480

== ENCOUNTER 2017-03-16 11:51 | Inpatient (IN) | payer MEDICARE, MEDICAID ==
--- NOTE | 2017-03-16 12:01 | ER Document Report ---
ED General - General Stated Complaint: UNRESPONSIVE Time Seen by Provider: 03/16/17 11:54 Mode of Arrival: Ambulatory Information source: Patient, Relative Cannot obtain history due to: Altered mental status Notes: 66 yr old female presents with complaints of unresponsiveness. Pt was noted by significant other to be shaking not responding appropriately. He denies a history of seizures, patient was sternally rubbed and did not respond, patient was brought in emergency traffic TRAVEL OUTSIDE OF THE [place] IN LAST 30 DAYS: No - HPI Onset: Just prior to arrival Onset/Duration: Sudden Quality of pain: No pain Severity: Severe Pain Level: Denies Associated symptoms: Weakness Exacerbated by: Denies Relieved by: Denies Similar symptoms previously: Yes Recently seen / treated by doctor: Yes - Related Data Allergies/Adverse Reactions: No Known Allergies Allergy (Verified 03/16/17 12:45) Past Medical History - Social History Smoking Status: Never Smoker Cigarette use (# per day): No Chew tobacco use (# tins/day): No Smoking Education Provided: No Family History: Reviewed & Not Pertinent - Past Medical History Cardiac Medical History: Reports: Hx Hypercholesterolemia, Hx Hypertension Pulmonary Medical History: Reports: Hx Asthma, Hx COPD Neurological Medical History: Reports: Hx Cerebrovascular Accident Endocrine Medical History: Reports: Hx Diabetes Mellitus Type 1, Hx Diabetes Mellitus Type 2 Renal/ Medical History: Reports: Hx Renal Insufficiency GI Medical History: Reports: Hx Gastroesophageal Reflux Disease Musculoskeltal Medical History: Reports Hx Arthritis - Degenerative Psychiatric Medical History: Reports: Hx Dementia - Vascular dementia Denies: Hx Depression - Immunizations Hx Diphtheria, Pertussis, Tetanus Vaccination: Yes Hx Pneumococcal Vaccination: 06/04/12 Review of Systems - Review of Systems Notes: REVIEW OF SYSTEMS: CONSTITUTIONAL : Denies fever, chills, or sweats. Denies recent illness. EENT: Denies eye, ear, throat, or mouth pain or symptoms. Denies nasal or sinus congestion or discharge. Denies throat, tongue, or mouth swelling or difficulty swallowing. CARDIOVASCULAR: Denies chest pain. Denies palpitations or racing or irregular heart beat. Denies ankle edema. RESPIRATORY: Denies cough, cold, or chest congestion. Denies shortness of breath, difficulty breathing, or wheezing. GASTROINTESTINAL: Denies abdominal pain or distention. Denies nausea, vomiting , or diarrhea. Denies blood in vomitus, stools, or per rectum. Denies black, tarry stools. Denies constipation. GENITOURINARY: Denies difficulty urinating, painful urination, burning, frequency, blood in urine, or discharge. FEMALE GENITOURINARY: Denies vaginal bleeding, heavy or abnormal periods, irregular periods. Denies vaginal discharge or odor. MUSCULOSKELETAL: Denies back or neck pain or stiffness. Denies joint pain or swelling. SKIN: Denies rash, lesions or sores. HEMATOLOGIC : Denies easy bruising or bleeding. LYMPHATIC: Denies swollen, enlarged glands. NEUROLOGICAL: Altered confused initially unresponsive PSYCHIATRIC: Denies anxiety or stress. Denies depression, suicidal ideation, or homicidal ideation. ALL OTHER SYSTEMS REVIEWED AND NEGATIVE. PHYSICAL EXAMINATION: GENERAL: Well-appearing, well-nourished and in no acute distress. HEAD: Atraumatic, normocephalic. EYES: Pupils equal round and reactive to light, extraocular movements intact, conjunctiva are normal. ENT: Nares patent, oropharynx clear without exudates. Moist mucous membranes. NECK: Normal range of motion, supple without lymphadenopathy LUNGS: Breath sounds clear to auscultation bilaterally and equal. No wheezes rales or rhonchi. HEART: Regular rate and rhythm without murmurs ABDOMEN: Soft, nontender, nondistended abdomen. No guarding, no rebound. No masses appreciated. Female : deferred Musculoskeletal: Normal range of motion, no pitting or edema. No cyanosis. NEUROLOGICAL: Sternal rubbed patient immediately awoke to pain stimuli PSYCH: Normal mood, normal affect. SKIN: Warm, Dry, normal turgor, no rashes or lesions noted. Dictation was performed using [employer] voice recognition software Physical Exam - Vital signs Vitals: Temp 97.5 F 03/16/17 11:56 Course - Re-evaluation Re-evalutation: 03/16/17 16:03 Dr Peres paged 03/16/17 16:36 Patient was watched in the emergency department and mentation has improved significantly, she is now alert oriented in no distress. I believe patient may have had a seizure and had a postictal state lab work does note mild lactate elevation mild hypokalemia but otherwise no life-threatening issues noted. I will observe the patient overnight - Vital Signs Vital signs: Temp Pulse Resp BP Pulse Ox 98.1 F 16 98/58 L 100 03/16/17 15:18 03/16/17 15:18 03/16/17 15:18 03/16/17 15:18 - Laboratory Result Diagrams: 03/16/17 15:00 03/16/17 15:06 Laboratory results interpreted by me: 03/16/17 03/16/17 03/16/17 11:56 13:10 15:00 Hgb 11.7 L Hct 34.9 L RDW 18.0 H Seg Neuts % (Manual) 79 H Band Neutrophils % 1 L VBG pH Sodium Potassium Chloride BUN Creatinine Est GFR ( Amer) Est GFR (Non-Af Amer) POC Glucose 113 H Lactic Acid Direct Bilirubin AST Urine Urobilinogen 2.0 H 03/16/17 03/16/17 03/16/17 15:00 15:06 15:06 Hgb Hct RDW Seg Neuts % (Manual) Band Neutrophils % VBG pH 7.27 L Sodium 145.9 H Potassium 3.2 L Chloride 111 H BUN 25 H Creatinine 2.05 H Est GFR ( Amer) 29 L Est GFR (Non-Af Amer) 24 L POC Glucose Lactic Acid 2.5 H Direct Bilirubin 0.5 H AST 13 L Urine Urobilinogen - Diagnostic Test Radiology reviewed: Image reviewed, Reports reviewed - EKG Interpretation by Me EKG shows normal: Sinus rhythm, Gooding, Intervals, QRS Complexes Discharge - Discharge Clinical Impression: Encephalopathy, Hypokalemia, Acute kidney injury Hypotension Qualifiers: Hypotension type: unspecified hypotension type Qualified Code(s): I95.9 - Hypotension, unspecified Condition: Stable Disposition: ADMITTED OBSERVATION Admitting Provider: Dai Unit Admitted: IMCU Referrals: DANY BENAVIDES MD [Primary Care Provider] - Follow up as needed
[2017-03-16] MEDS ORDERED: CEFTRIAXONE 1 GM/D5W RTU 1 GM/50 ML RTUPB IV ONE (12:30)
--- NOTE | 2017-03-16 12:47 | RADIOLOGY REPORT (SQ) ---
EXAM DESCRIPTION: CHEST SINGLE VIEW COMPLETED DATE/TIME: 03/16/2017 12:28 pm REASON FOR STUDY: altered COMPARISON: 02/25/2017 EXAM PARAMETERS: NUMBER OF VIEWS: One view. TECHNIQUE: Single frontal radiographic view of the chest acquired. RADIATION DOSE: NA LIMITATIONS: None. FINDINGS: LUNGS AND PLEURA: No opacities, masses or pneumothorax. No pleural effusion. MEDIASTINUM AND HILAR STRUCTURES: No masses. Contour normal. HEART AND VASCULAR STRUCTURES: Heart normal in size. Normal vasculature. BONES: No acute findings. HARDWARE: None in the chest. OTHER: No other significant finding. IMPRESSION: NO ACUTE RADIOGRAPHIC FINDING IN THE CHEST. TECHNICAL DOCUMENTATION: JOB ID: [id number]
--- NOTE | 2017-03-16 13:25 | EKG REPORT ---
SEVERITY:- ABNORMAL ECG - SINUS RHYTHM SUPRAVENTRICULAR BIGEMINY NONSPECIFIC T ABNORMALITIES, INFERIOR LEADS : Confirmed by: Simba Stokes MD 16-Mar-2017 13:24:40
[2017-03-16 13:32] LABS: APPEARANCE,URINE CLEAR; BILIRUBIN,URINE NEGATIVE (NEGATIVE); GLUCOSE, URINE NEGATIVE (NEGATIVE); KETONES,URINE NEGATIVE (NEGATIVE); LEUKOCYTE ESTERASE,URINE NEGATIVE (NEGATIVE); NITRITE,URINE NEGATIVE (NEGATIVE); PROTEIN,URINE NEGATIVE (NEGATIVE); URINE SPECIFIC GRAVITY 1.006
--- NOTE | 2017-03-16 13:59 | RADIOLOGY REPORT (SQ) ---
EXAM DESCRIPTION: CT HEAD WITHOUT COMPLETED DATE/TIME: 03/16/2017 1:36 pm REASON FOR STUDY: altered COMPARISON: MRI brain 08/17/2016 CT brain 02/25/2017, 03/26/2013, 09/06/2007 TECHNIQUE: Axial images acquired through the brain without intravenous contrast. Images reviewed wi th bone, brain and subdural windows. Images stored on PACS. All CT scanners at this facility use dose modulation, iterative reconstruction, and/or weight based d osing when appropriate to reduce radiation dose to as low as reasonably achievable (ALARA). [facility]: Dose Right [facility]: CareDose [facility]: Dose Right [facility]: Teradose 4D [facility]: [employer] ([employer]) RADIATION DOSE: Up-to-date CT equipment and radiation dose reduction techniques were employed. CTDIv ol: 64.6 mGy. DLP: 1163 mGy-cm.mGy. LIMITATIONS: Mild motion artifact FINDINGS: VENTRICLES: Prominent. CEREBRUM: No masses. No hemorrhage. No midline shift. Areas of low density in the white matter mos t likely due to chronic micro-vascular ischemic change. No evidence for acute infarction. CEREBELLUM: No masses. No hemorrhage. No alteration of density. No evidence for acute infarction. EXTRAAXIAL SPACES: Age-related involutional change. No fluid collections. No masses. ORBITS AND GLOBE: No intra- or extraconal masses. Normal contour of globe without masses. CALVARIUM: No fracture. PARANASAL SINUSES: No fluid or mucosal thickening. SOFT TISSUES: No mass or hematoma. OTHER: No other significant finding. IMPRESSION: CHRONIC CHANGES OF ATROPHY AND MICROVASCULAR ISCHEMIA. NO ACUTE PROCESS. EVIDENCE OF ACUTE STROKE: NO. TECHNICAL DOCUMENTATION: JOB ID: [id number] Quality ID # [id number]: Final reports with documentation of one or more dose reduction techniques (e.g., Au tomated exposure control, adjustment of the mA and/or kV according to patient size, use of iterative reconstruction technique) 2010 [employer]- All Rights Reserved
[2017-03-16 15:41] LABS: VENOUS BLOOD BASE EXCESS -4.4 mmol/L; VENOUS BLOOD HCO3 23.2 mmol/L (20-32); VENOUS BLOOD PCO2 51.4 mmHg (35-63); VENOUS BLOOD PH 7.27 (7.30-7.42)
[2017-03-16 15:46] LABS: HEMATOCRIT 34.9 % (36.0-47.0); HEMOGLOBIN 11.7 g/dL (12.0-15.5); HGB HCT DIFFERENCE 0.2; MEAN CORPUSCULAR HEMOGLOBIN 30.6 pg (27.0-33.4); MEAN CORPUSCULAR HGB CONC 33.7 g/dL (32.0-36.0); MEAN CORPUSCULAR VOLUME 91 fl (80-97); RED BLOOD COUNT 3.84 10^6/uL (3.72-5.28); WHITE BLOOD COUNT 8.7 10^3/uL (4.0-10.5)
[2017-03-16 15:53] LABS: ALANINE AMINOTRANSFERASE 21 U/L (9-52); ALBUMIN 3.8 g/dL (3.5-5.0); ALKALINE PHOSPHATASE 89 U/L (38-126); ANION GAP 13 (5-19); ASPARTATE AMINO TRANSFERASE 13 U/L (14-36); BILIRUBIN,DIRECT 0.5 mg/dL (0.0-0.4); BILIRUBIN,TOTAL 0.5 mg/dL (0.2-1.3); BLOOD UREA NITROGEN 25 mg/dL (7-20); CALCIUM 9.5 mg/dL (8.4-10.2); CARBON DIOXIDE 22 mmol/L (22-30); CHLORIDE 111 mmol/L (98-107); CREATININE RESULT 2.05 mg/dL (0.52-1.25); GLUCOSE 96 mg/dL (75-110); POTASSIUM 3.2 mmol/L (3.6-5.0); SODIUM 145.9 mmol/L (137-145); TOTAL PROTEIN 7.1 g/dL (6.3-8.2)
[2017-03-16 15:57] LABS: BAND NEUTROPHILS % (MANUAL) 1 % (3-5); BASOPHILS % (MANUAL) 0 % (0-2); EOSINOPHILS % (MANUAL) 1 % (0-6); LYMPHOCYTES % (MANUAL) 14 % (13-45); TOTAL CELLS COUNTED 100
[2017-03-16 16:03] LABS: ANISOCYTOSIS 1+; BURR CELLS 1+; OVALOCYTES SLIGHT; POIKILOCYTOSIS 1+; POLYCHROMASIA SLIGHT; TARGET CELLS SLIGHT; TEAR DROP CELLS SLIGHT; TOXIC GRANULATION SLIGHT
[2017-03-16 21:34] LABS: ARTERIAL BLOOD BASE EXCESS -2.1 mmol/L; ARTERIAL BLOOD O2 SATURATION 97.1 % (94-98)
[2017-03-16] MEDS ORDERED: GLUCAGON,HUMAN RECOMB 1 MG INJ IM PRN (21:35)
[2017-03-16] MEDS ORDERED: DEXTROSE 40% GEL 15 GM TUBE PO PRN ×2 (21:35)
[2017-03-16] MEDS ORDERED: DEXTROSE 50%-WATER 25 GM/50 ML DISP.SYRIN IV PRN ×2 (21:35)
[2017-03-16] MEDS ORDERED: NORMAL SALINE 1000 ML 1,000 ML IV PRN (21:37)
[2017-03-16] MEDS: HEPARIN SOD (PORCINE) 5,000 UNIT/ML 1 ML SYRINGE SUBCUT SCH (22:30)
[2017-03-16 22:38] LABS: PROTHROMBIN TIME 14.9 SEC (11.4-15.4)
[2017-03-16 22:39] LABS: PARTIAL THROMBOPLASTIN TIME 32.5 SEC (23.5-35.8)
[2017-03-16] MEDS: ATORVASTATIN CALCIUM 20 MG TABLET PO SCH (22:41)
[2017-03-16 22:43] LABS: LIPASE 79.8 U/L (23-300); MAGNESIUM 1.9 mg/dL (1.6-2.3)
[2017-03-16 23:02] LABS: CREATINE KINASE MB < 0.22 ng/mL (<4.55); TROPONIN I < 0.012 ng/mL
[2017-03-16 23:15] LABS: THYROID STIMULATING HORMONE < 0.01 uIU/mL (0.47-4.68)
[2017-03-16] MEDS: IPRATROPIUM/ALBUTEROL 0.5-2.5 MG/3 ML AMPUL NEB SCH (23:18)
[2017-03-17] MEDS: IPRATROPIUM/ALBUTEROL 0.5-2.5 MG/3 ML AMPUL NEB SCH ×6 (01:42→20:04)
[2017-03-17 02:33] LABS: APPEARANCE,URINE CLEAR; BILIRUBIN,URINE NEGATIVE (NEGATIVE); GLUCOSE, URINE NEGATIVE (NEGATIVE); KETONES,URINE NEGATIVE (NEGATIVE); LEUKOCYTE ESTERASE,URINE NEGATIVE (NEGATIVE); NITRITE,URINE NEGATIVE (NEGATIVE); PROTEIN,URINE NEGATIVE (NEGATIVE); URINE SPECIFIC GRAVITY 1.009; UROBILINOGEN,URINE NEGATIVE mg/dL (<2.0)
[2017-03-17 02:50] LABS: URINE BARBITURATES SCREEN NEGATIVE; URINE METHADONE SCREEN NEGATIVE; URINE OPIATES LOW NEGATIVE; URINE PHENCYCLIDINE SCREEN NEGATIVE
--- NOTE | 2017-03-17 04:29 | RADIOLOGY REPORT (SQ) ---
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 TECHNIQUE: Dynamic and static grayscale images acquired of the kidneys and bladder and recorded on P ACS. Additional selected color Doppler and spectral images recorded. LIMITATIONS: None. FINDINGS: RIGHT KIDNEY: 7.6 cm kidney contains a likely benign 1.0 cm cyst not definitively characte rized. LEFT KIDNEY: 8.7 cm left kidney contains likely benign cysts measuring 3.4 cm and 1.0 cm, not defini tively characterized. Mild thinning of left renal cortex. BLADDER: No masses. Lucero catheter. OTHER FINDINGS: No other significant finding. IMPRESSION: No acute findings. Likely benign renal cysts measure up to 3.4 cm, left more than right . TECHNICAL DOCUMENTATION: JOB ID: [id number] [employer]- All Rights Reserved
[2017-03-17] MEDS: HEPARIN SOD (PORCINE) 5,000 UNIT/ML 1 ML SYRINGE SUBCUT SCH ×3 (05:03→22:15)
[2017-03-17 05:04] LABS: ABSOLUTE BASOPHILS # (AUTO) 0.1 10^3/uL (0.0-0.2); ABSOLUTE EOSINOPHILS # (AUTO) 0.1 10^3/uL (0.0-0.6); ABSOLUTE LYMPHOCYTES (AUTO) 3.5 10^3/uL (0.5-4.7); ABSOLUTE MONOCYTES (AUTO) 0.4 10^3/uL (0.1-1.4); ABSOLUTE NEUT (AUTO) 4.2 10^3/uL (1.7-8.2); BASOPHILS % (AUTO) 1.2 % (0-2); EOSINOPHILS % (AUTO) 1.8 % (0-6); HEMATOCRIT 28.7 % (36.0-47.0); HEMOGLOBIN 9.7 g/dL (12.0-15.5); HGB HCT DIFFERENCE 0.4; LYMPHOCYTES % (AUTO) 41.9 % (13-45); MEAN CORPUSCULAR HEMOGLOBIN 30.5 pg (27.0-33.4); MEAN CORPUSCULAR HGB CONC 33.7 g/dL (32.0-36.0); MEAN CORPUSCULAR VOLUME 90 fl (80-97); MONOCYTES % (AUTO) 4.6 % (3-13); RED BLOOD COUNT 3.17 10^6/uL (3.72-5.28); SEGMENTED NEUTROPHILS % (AUTO) 50.5 % (42-78); WHITE BLOOD COUNT 8.4 10^3/uL (4.0-10.5)
[2017-03-17 05:24] LABS: ALANINE AMINOTRANSFERASE 26 U/L (9-52); ALBUMIN 3.2 g/dL (3.5-5.0); ALKALINE PHOSPHATASE 86 U/L (38-126); ANION GAP 12 (5-19); ASPARTATE AMINO TRANSFERASE 12 U/L (14-36); BILIRUBIN,DIRECT 0.3 mg/dL (0.0-0.4); BILIRUBIN,TOTAL 0.3 mg/dL (0.2-1.3); BLOOD UREA NITROGEN 22 mg/dL (7-20); CALCIUM 9.2 mg/dL (8.4-10.2); CARBON DIOXIDE 21 mmol/L (22-30); CHLORIDE 115 mmol/L (98-107); CHOLESTEROL 92.88 mg/dL (0-200); CREATININE RESULT 1.72 mg/dL (0.52-1.25); Direct HDL 45 mg/dL (>40); GLUCOSE 83 mg/dL (75-110); SODIUM 147.7 mmol/L (137-145); TOTAL PROTEIN 6.3 g/dL (6.3-8.2); TRIGLYCERIDES 72 mg/dL (<150)
[2017-03-17 05:35] LABS: DIRECT LDL 31 mg/dL (<100)
[2017-03-17 05:44] LABS: CREATINE KINASE MB < 0.22 ng/mL (<4.55); TROPONIN I < 0.012 ng/mL
[2017-03-17 05:47] LABS: POTASSIUM 2.9 mmol/L (3.6-5.0)
[2017-03-17] MEDS: POTASSIUM CHLORIDE 10 MEQ TABLET.SA PO SCH ×3 (09:27→17:55)
[2017-03-17 11:36] LABS: CREATINE KINASE MB < 0.22 ng/mL (<4.55); TROPONIN I < 0.012 ng/mL
[2017-03-17] MEDS ORDERED: ALBUTEROL SULFATE 0.083% NEB 2.5 MG/3 ML AMPUL NEB PRN (13:53)
--- NOTE | 2017-03-17 14:23 | PDOC H&P ---
History of Present Illness Admission Date/PCP: 03/16/17 21:26 DANY BENAVIDES MD History of Present Illness: MICAH WOMACK is a 66 year old female, she was transported from home to the emergency room by EMS because she was unresponsive. She was noticed by significant other/living-in to be shaking but not responsive he called rescue squad, when EMS arrived sternal pressure was applied she was then transported to the emergency room for further evaluation in the emergency room when she arrived venous blood gas was done pH 7.27, PCO2 51.4 bicarbonate 23.2, the blood work that was done showed creatinine of 2.05, potassium 3.2. She was admitted for observation on February 25, 2017 when she presented in a similar fashion with altered mental status at that time she was found to have hypokalemia with elevated serum creatinine. She has a history of chronic kidney disease stage III on that admission she was treated with IV fluid with improvement in the kidney function when she was discharged the last time the serum creatinine was 1.72, where she was admitted was 2.14, there was slight improvement with hydration of the kidney function serum creatinine when she arrived today was 2.05. Since discharge on February 26, 2017 she has not come to the office for follow-up. She is very noncompliant with her diabetic care, she continued to smoke cigarettes, she has vascular dementia. Kidney ultrasound was done he showed a small right kidney, the right kidney measures 7.2 cm in size the left kidney measures 8.7 cm in size and it contains benign cyst that measures 3.4 cm a [address] head was done was negative for any acute infarction Past Medical History Cardiac Medical History: Reports: Hyperlipidema, Hypertension Pulmonary Medical History: Reports: Asthma, Chronic Obstructive Pulmonary Disease (COPD) Endocrine Medical History: Reports: Diabetes Mellitus Type 2 GI Medical History: Reports: Gastroesophageal Reflux Disease Musculoskeltal Medical History: Reports: Arthritis - Degenerative Psychiatric Medical History: Reports: Dementia - Vascular dementia Social History Smoking Status: Current Every Day Smoker Frequency of Alcohol Use: None Hx Recreational Drug Use: No Drugs: None Hx Prescription Drug Abuse: No - Advance Directive Resuscitation Status: Full Code Family History Family History: Reviewed & Not Pertinent Parental Family History Reviewed: Yes Children Family History Reviewed: Yes Sibling(s) Family History Reviewed.: Yes Medication/Allergy Home Medications: Atorvastatin Calcium [Lipitor 20 mg Tablet] 20 mg PO DAILY 03/16/17 Donepezil HCl [Aricept 5 mg Tablet] 5 mg PO QHS 03/16/17 Exenatide Microspheres [Bydureon Pen] 2 mg SQ Q7D 03/16/17 Losartan/Hydrochlorothiazide [Losartan-Hctz 100-25 mg Tab] 1 tab PO DAILY Pioglitazone HCl [Actos 15 mg Tablet] 15 mg PO DAILY 03/16/17 Pramipexole Di-HCl [Mirapex] 0.125 mg PO Q12 03/16/17 Allergies/Adverse Reactions: No Known Allergies Allergy (Verified 03/16/17 12:45) Review of Systems ROS unobtainable: Due to mental status Physical Exam Vital Signs: Temp Pulse Resp BP Pulse Ox 98.0 F 91 18 118/52 L 94 03/17/17 12:24 03/17/17 12:24 03/17/17 12:24 03/17/17 12:24 03/17/17 12:24 Intake & Output 03/16/17 03/17/17 03/18/17 06:59 06:59 06:59 Intake Total 940 514 Output Total 400 300 Balance 540 214 Weight 72 kg General appearance: PRESENT: mild distress Head exam: PRESENT: atraumatic, normocephalic Eye exam: PRESENT: PERRLA Mouth exam: PRESENT: moist Neck exam: PRESENT: full ROM Respiratory exam: PRESENT: wheezes Cardiovascular exam: PRESENT: RRR, +S1, +S2 Pulses: PRESENT: +1 pedal pulses bilateral GI/Abdominal exam: PRESENT: normal bowel sounds, soft Rectal exam: PRESENT: deferred Neurological exam: PRESENT: alert, CN II-XII grossly intact Results Laboratory Results: 03/17/17 04:24 03/17/17 04:24 03/16/17 03/16/17 03/16/17 21:28 22:16 22:16 WBC RBC Hgb Hct MCV MCH MCHC RDW Plt Count Seg Neutrophils % Lymphocytes % Monocytes % Eosinophils % Basophils % Absolute Neutrophils Absolute Lymphocytes Absolute Monocytes Absolute Eosinophils Absolute Basophils Carbonic Acid 1.02 L HCO3/H2CO3 Ratio 21:1 ABG pH 7.43 ABG pCO2 33.8 L ABG pO2 89.0 ABG HCO3 21.7 ABG O2 Saturation 97.1 ABG Base Excess -2.1 FiO2 ROOM AIR Sodium Potassium Chloride Carbon Dioxide Anion Gap BUN Creatinine Est GFR ( Amer) Est GFR (Non-Af Amer) Glucose Calcium Phosphorus 3.0 Magnesium 1.9 Total Bilirubin AST ALT Alkaline Phosphatase Ammonia < 8.7 L Total Protein Albumin Triglycerides Cholesterol LDL Cholesterol Direct VLDL Cholesterol HDL Cholesterol Amylase 49 Lipase 79.8 TSH Free T4 Urine Color Urine Appearance Urine pH Ur Specific [place] Urine Protein Urine Glucose (UA) Urine Ketones Urine Blood Urine Nitrite Ur Leukocyte Esterase Urine WBC (Auto) Urine RBC (Auto) 03/16/17 03/17/17 03/17/17 22:16 02:15 04:24 WBC 8.4 RBC 3.17 L Hgb 9.7 L Hct 28.7 L MCV 90 MCH 30.5 MCHC 33.7 RDW 18.0 H Plt Count 269 Seg Neutrophils % 50.5 Lymphocytes % 41.9 Monocytes % 4.6 Eosinophils % 1.8 Basophils % 1.2 Absolute Neutrophils 4.2 Absolute Lymphocytes 3.5 Absolute Monocytes 0.4 Absolute Eosinophils 0.1 Absolute Basophils 0.1 Carbonic Acid HCO3/H2CO3 Ratio ABG pH ABG pCO2 ABG pO2 ABG HCO3 ABG O2 Saturation ABG Base Excess FiO2 Sodium Potassium Chloride Carbon Dioxide Anion Gap BUN Creatinine Est GFR ( Amer) Est GFR (Non-Af Amer) Glucose Calcium Phosphorus Magnesium Total Bilirubin AST ALT Alkaline Phosphatase Ammonia Total Protein Albumin Triglycerides Cholesterol LDL Cholesterol Direct VLDL Cholesterol HDL Cholesterol Amylase Lipase TSH < 0.01 L Free T4 1.92 Urine Color YELLOW Urine Appearance CLEAR Urine pH 5.0 Ur Specific [place] 1.009 Urine Protein NEGATIVE Urine Glucose (UA) NEGATIVE Urine Ketones NEGATIVE Urine Blood SMALL H Urine Nitrite NEGATIVE Ur Leukocyte Esterase NEGATIVE Urine WBC (Auto) 1 Urine RBC (Auto) 1 03/17/17 04:24 WBC RBC Hgb Hct MCV MCH MCHC RDW Plt Count Seg Neutrophils % Lymphocytes % Monocytes % Eosinophils % Basophils % Absolute Neutrophils Absolute Lymphocytes Absolute Monocytes Absolute Eosinophils Absolute Basophils Carbonic Acid HCO3/H2CO3 Ratio ABG pH ABG pCO2 ABG pO2 ABG HCO3 ABG O2 Saturation ABG Base Excess FiO2 Sodium 147.7 H Potassium 2.9 L* Chloride 115 H Carbon Dioxide 21 L Anion Gap 12 BUN 22 H Creatinine 1.72 H Est GFR ( Amer) 36 L Est GFR (Non-Af Amer) 30 L Glucose 83 Calcium 9.2 Phosphorus Magnesium Total Bilirubin 0.3 AST 12 L ALT 26 Alkaline Phosphatase 86 Ammonia Total Protein 6.3 Albumin 3.2 L Triglycerides 72 Cholesterol 92.88 LDL Cholesterol Direct 31 VLDL Cholesterol 14.0 HDL Cholesterol 45 Amylase Lipase TSH Free T4 Urine Color Urine Appearance Urine pH Ur Specific [place] Urine Protein Urine Glucose (UA) Urine Ketones Urine Blood Urine Nitrite Ur Leukocyte Esterase Urine WBC (Auto) Urine RBC (Auto) 03/16/17 03/16/17 03/16/17 22:16 22:16 22:16 Creatine Kinase 29 L CK-MB (CK-2) < 0.22 Troponin I < 0.012 NT-Pro-B Natriuret Pep 336 03/17/17 03/17/17 03/17/17 04:24 04:24 10:30 Creatine Kinase 27 L 41 CK-MB (CK-2) < 0.22 Troponin I < 0.012 NT-Pro-B Natriuret Pep 03/17/17 10:30 Creatine Kinase CK-MB (CK-2) < 0.22 Troponin I < 0.012 NT-Pro-B Natriuret Pep Impressions: Chest X-Ray 03/16/17 11:56 IMPRESSION: NO ACUTE RADIOGRAPHIC FINDING IN THE CHEST. Head CT 03/16/17 13:17 IMPRESSION: CHRONIC CHANGES OF ATROPHY AND MICROVASCULAR ISCHEMIA. NO ACUTE PROCESS. EVIDENCE OF ACUTE STROKE: NO. Renal Ultrasound 03/17/17 00:00 IMPRESSION: No acute findings. Likely benign renal cysts measure up to 3.4 cm , left more than right. Assessment & Plan - Diagnosis (1) Acute hypercapnic respiratory failure Is this a current diagnosis for this admission?: Yes Plan: Patient presented with CO2 narcosis, she was treated in the emergency room, she is now more alert (2) Acute respiratory acidosis Is this a current diagnosis for this admission?: Yes Plan: Venous blood gas suggest acute respiratory acidosis, arterial blood gas to be requested (3) Acute exacerbation of chronic obstructive pulmonary disease Plan: She is wheezing with COPD exacerbation, we will hold off steroid for now (4) Acute kidney injury Is this a current diagnosis for this admission?: Yes (5) Chronic kidney disease, stage 3 Is this a current diagnosis for this admission?: Yes
--- NOTE | 2017-03-17 14:30 | PDOC PROGRESS REPORT ---
Subjective Progress Note for:: 03/17/17 Subjective:: Patient was admitted yesterday for the management of altered mental status, the potassium is 2.9 today, Physical Exam Vital Signs: Temp Pulse Resp BP Pulse Ox 98.0 F 91 18 118/52 L 94 03/17/17 12:24 03/17/17 12:24 03/17/17 12:24 03/17/17 12:24 03/17/17 12:24 Intake & Output 03/16/17 03/17/17 03/18/17 06:59 06:59 06:59 Intake Total 940 514 Output Total 400 300 Balance 540 214 Weight 72 kg General appearance: PRESENT: mild distress Eye exam: PRESENT: PERRLA Respiratory exam: PRESENT: wheezes Cardiovascular exam: PRESENT: +S1, +S2 GI/Abdominal exam: PRESENT: soft Neurological exam: PRESENT: alert, CN II-XII grossly intact Results Laboratory Results: 03/17/17 04:24 03/17/17 04:24 03/16/17 03/16/17 03/16/17 21:28 22:16 22:16 WBC RBC Hgb Hct MCV MCH MCHC RDW Plt Count Seg Neutrophils % Lymphocytes % Monocytes % Eosinophils % Basophils % Absolute Neutrophils Absolute Lymphocytes Absolute Monocytes Absolute Eosinophils Absolute Basophils Carbonic Acid 1.02 L HCO3/H2CO3 Ratio 21:1 ABG pH 7.43 ABG pCO2 33.8 L ABG pO2 89.0 ABG HCO3 21.7 ABG O2 Saturation 97.1 ABG Base Excess -2.1 FiO2 ROOM AIR Sodium Potassium Chloride Carbon Dioxide Anion Gap BUN Creatinine Est GFR ( Amer) Est GFR (Non-Af Amer) Glucose Calcium Phosphorus 3.0 Magnesium 1.9 Total Bilirubin AST ALT Alkaline Phosphatase Ammonia < 8.7 L Total Protein Albumin Triglycerides Cholesterol LDL Cholesterol Direct VLDL Cholesterol HDL Cholesterol Amylase 49 Lipase 79.8 TSH Free T4 Urine Color Urine Appearance Urine pH Ur Specific [place] Urine Protein Urine Glucose (UA) Urine Ketones Urine Blood Urine Nitrite Ur Leukocyte Esterase Urine WBC (Auto) Urine RBC (Auto) 03/16/17 03/17/17 03/17/17 22:16 02:15 04:24 WBC 8.4 RBC 3.17 L Hgb 9.7 L Hct 28.7 L MCV 90 MCH 30.5 MCHC 33.7 RDW 18.0 H Plt Count 269 Seg Neutrophils % 50.5 Lymphocytes % 41.9 Monocytes % 4.6 Eosinophils % 1.8 Basophils % 1.2 Absolute Neutrophils 4.2 Absolute Lymphocytes 3.5 Absolute Monocytes 0.4 Absolute Eosinophils 0.1 Absolute Basophils 0.1 Carbonic Acid HCO3/H2CO3 Ratio ABG pH ABG pCO2 ABG pO2 ABG HCO3 ABG O2 Saturation ABG Base Excess FiO2 Sodium Potassium Chloride Carbon Dioxide Anion Gap BUN Creatinine Est GFR ( Amer) Est GFR (Non-Af Amer) Glucose Calcium Phosphorus Magnesium Total Bilirubin AST ALT Alkaline Phosphatase Ammonia Total Protein Albumin Triglycerides Cholesterol LDL Cholesterol Direct VLDL Cholesterol HDL Cholesterol Amylase Lipase TSH < 0.01 L Free T4 1.92 Urine Color YELLOW Urine Appearance CLEAR Urine pH 5.0 Ur Specific [place] 1.009 Urine Protein NEGATIVE Urine Glucose (UA) NEGATIVE Urine Ketones NEGATIVE Urine Blood SMALL H Urine Nitrite NEGATIVE Ur Leukocyte Esterase NEGATIVE Urine WBC (Auto) 1 Urine RBC (Auto) 1 03/17/17 04:24 WBC RBC Hgb Hct MCV MCH MCHC RDW Plt Count Seg Neutrophils % Lymphocytes % Monocytes % Eosinophils % Basophils % Absolute Neutrophils Absolute Lymphocytes Absolute Monocytes Absolute Eosinophils Absolute Basophils Carbonic Acid HCO3/H2CO3 Ratio ABG pH ABG pCO2 ABG pO2 ABG HCO3 ABG O2 Saturation ABG Base Excess FiO2 Sodium 147.7 H Potassium 2.9 L* Chloride 115 H Carbon Dioxide 21 L Anion Gap 12 BUN 22 H Creatinine 1.72 H Est GFR ( Amer) 36 L Est GFR (Non-Af Amer) 30 L Glucose 83 Calcium 9.2 Phosphorus Magnesium Total Bilirubin 0.3 AST 12 L ALT 26 Alkaline Phosphatase 86 Ammonia Total Protein 6.3 Albumin 3.2 L Triglycerides 72 Cholesterol 92.88 LDL Cholesterol Direct 31 VLDL Cholesterol 14.0 HDL Cholesterol 45 Amylase Lipase TSH Free T4 Urine Color Urine Appearance Urine pH Ur Specific [place] Urine Protein Urine Glucose (UA) Urine Ketones Urine Blood Urine Nitrite Ur Leukocyte Esterase Urine WBC (Auto) Urine RBC (Auto) 03/16/17 03/16/17 03/16/17 22:16 22:16 22:16 Creatine Kinase 29 L CK-MB (CK-2) < 0.22 Troponin I < 0.012 NT-Pro-B Natriuret Pep 336 03/17/17 03/17/17 03/17/17 04:24 04:24 10:30 Creatine Kinase 27 L 41 CK-MB (CK-2) < 0.22 Troponin I < 0.012 NT-Pro-B Natriuret Pep 03/17/17 10:30 Creatine Kinase CK-MB (CK-2) < 0.22 Troponin I < 0.012 NT-Pro-B Natriuret Pep Impressions: Chest X-Ray 03/16/17 11:56 IMPRESSION: NO ACUTE RADIOGRAPHIC FINDING IN THE CHEST. Head CT 03/16/17 13:17 IMPRESSION: CHRONIC CHANGES OF ATROPHY AND MICROVASCULAR ISCHEMIA. NO ACUTE PROCESS. EVIDENCE OF ACUTE STROKE: NO. Renal Ultrasound 03/17/17 00:00 IMPRESSION: No acute findings. Likely benign renal cysts measure up to 3.4 cm , left more than right. Assessment & Plan - Diagnosis (1) Acute hypercapnic respiratory failure Is this a current diagnosis for this admission?: Yes (2) Acute respiratory acidosis Is this a current diagnosis for this admission?: Yes (3) Acute exacerbation of chronic obstructive pulmonary disease Is this a current diagnosis for this admission?: Yes Plan: Start Solu-Medrol 125 IV every 6, CT chest ordered,continue brochodilators (4) Acute kidney injury Is this a current diagnosis for this admission?: Yes Plan: The kidney function is improved with hydration suggesting a prerenal component (5) Chronic kidney disease, stage 3 Is this a current diagnosis for this admission?: Yes (6) Hypokalemia Is this a current diagnosis for this admission?: Yes Plan: The etiology is partly due to hydration with normal saline, urine K to be ordered
--- NOTE | 2017-03-17 15:14 | RADIOLOGY REPORT (SQ) ---
EXAM DESCRIPTION: CT CHEST WITHOUT COMPLETED DATE/TIME: 03/17/2017 2:55 pm REASON FOR STUDY: copd E02 SUBCLINICAL IODINE-DEFICIENCY HYPOTHYROIDISM I11.0 HYPERTENSIVE HEART D ISEASE WITH HEART FAILURE I50.23 ACUTE ON CHRONIC SYSTOLIC (CONGESTIVE) HEART FAILURE COMPARISON: None. TECHNIQUE: CT scan performed of the chest without intravenous contrast. Images reviewed with lung, soft tissue and bone windows. Reconstructed coronal and sagittal MPR images reviewed. All images st ored on PACS. All CT scanners at this facility use dose modulation, iterative reconstruction, and/or weight based d osing when appropriate to reduce radiation dose to as low as reasonably achievable (ALARA). [facility]: Dose Right [facility]: CareDose [facility]: Dose Right [facility]: Teradose 4D [facility]: Smart Catbird RADIATION DOSE: Up-to-date CT equipment and radiation dose reduction techniques were employed. CTDIv ol: 9.4 mGy. DLP: 323 mGy-cm. mGy. LIMITATIONS: No technical limitations. FINDINGS: LUNGS AND PLEURA: 3 mm nodule right upper lobe image 30. Subpleural lateral right lower l obe 3 mm nodule image 64. Lungs otherwise clear. No pleural disease. HILAR AND MEDIASTINAL STRUCTURES: No identified masses or abnormal nodes. No obvious aneurysm. HEART AND VASCULAR STRUCTURES: No aneurysm. No pericardial effusion. UPPER ABDOMEN: No significant findings. Limited exam. THYROID AND OTHER SOFT TISSUES: Enlarged thyroid, multinodular appearance. No axillary adenopathy or chest wall mass detected. BONES: Spondylosis. No acute fracture or worrisome bone lesion. HARDWARE: None in the chest. OTHER: No other significant findings. IMPRESSION: 1. Thyroid goiter. 2. 3 mm right lung nodules. Surveillance imaging followup per rec ommendations below. Given the history of COPD, optional [address] might be considered. FLEISCHNER CRITERIA FOR FOLLOW-UP OF PULMONARY NODULES Incidentally detected new nodules in persons 35 or older. HIGH RISK: History of smoking or other known risk factors. <6mm multiple solid nodules: LOW RISK: no routine followup. HIGH RISK: optional CT 12 mo. TECHNICAL DOCUMENTATION: JOB ID: [id number] Quality ID # [id number]: Final reports with documentation of one or more dose reduction techniques (e.g., Au tomated exposure control, adjustment of the mA and/or kV according to patient size, use of iterative reconstruction technique) 2010 [employer]- All Rights Reserved
[2017-03-17] MEDS ORDERED: METHYLPREDNISOLONE INJ 125 MG/2 ML SDV IV ONE (15:30)
[2017-03-17] MEDS ORDERED: HALOPERIDOL LACTATE INJ 5 MG/1 ML VIAL IV PRN (16:31)
[2017-03-17 20:19] LABS: APPEARANCE,URINE SLIGHTLY-CLOUDY; BILIRUBIN,URINE NEGATIVE (NEGATIVE); GLUCOSE, URINE NEGATIVE (NEGATIVE); KETONES,URINE NEGATIVE (NEGATIVE); LEUKOCYTE ESTERASE,URINE TRACE (NEGATIVE); NITRITE,URINE NEGATIVE (NEGATIVE); PROTEIN,URINE NEGATIVE (NEGATIVE); URINE SPECIFIC GRAVITY 1.008; UROBILINOGEN,URINE NEGATIVE mg/dL (<2.0)
[2017-03-17 20:33] LABS: URINE POTASSIUM 13.3 mmol/L (22-164)
[2017-03-17] MEDS: METHYLPREDNISOLONE INJ 125 MG/2 ML SDV IV SCH (22:15)
[2017-03-17] MEDS: INSULIN LISPRO 100 UNIT/ML 3 ML VIAL SUBCUT PRN (22:28)
[2017-03-18] MEDS: ATORVASTATIN CALCIUM 20 MG TABLET PO SCH ×2 (03:51→23:17)
[2017-03-18] MEDS: METHYLPREDNISOLONE INJ 125 MG/2 ML SDV IV SCH ×3 (05:44→23:20)
[2017-03-18] MEDS: HEPARIN SOD (PORCINE) 5,000 UNIT/ML 1 ML SYRINGE SUBCUT SCH ×3 (05:44→23:20)
[2017-03-18 06:10] LABS: ALANINE AMINOTRANSFERASE 18 U/L (9-52); ALBUMIN 3.9 g/dL (3.5-5.0); ALKALINE PHOSPHATASE 83 U/L (38-126); ANION GAP 15 (5-19); ASPARTATE AMINO TRANSFERASE 14 U/L (14-36); BILIRUBIN,DIRECT 0.4 mg/dL (0.0-0.4); BILIRUBIN,TOTAL 0.4 mg/dL (0.2-1.3); BLOOD UREA NITROGEN 20 mg/dL (7-20); CALCIUM 9.5 mg/dL (8.4-10.2); CARBON DIOXIDE 18 mmol/L (22-30); CHLORIDE 116 mmol/L (98-107); CREATININE RESULT 1.57 mg/dL (0.52-1.25); GLUCOSE 178 mg/dL (75-110); POTASSIUM 4.7 mmol/L (3.6-5.0); TOTAL PROTEIN 7.4 g/dL (6.3-8.2)
[2017-03-18 06:12] LABS: ABSOLUTE NEUT (AUTO) 6.1 10^3/uL (1.7-8.2); BASOPHILS % (AUTO) 0.7 % (0-2); HEMATOCRIT 32.5 % (36.0-47.0); HEMOGLOBIN 10.9 g/dL (12.0-15.5); HGB HCT DIFFERENCE 0.2; MEAN CORPUSCULAR HEMOGLOBIN 30.5 pg (27.0-33.4); MEAN CORPUSCULAR HGB CONC 33.5 g/dL (32.0-36.0); MEAN CORPUSCULAR VOLUME 91 fl (80-97); MONOCYTES % (AUTO) 0.7 % (3-13); RED BLOOD COUNT 3.57 10^6/uL (3.72-5.28); RED CELL DISTRIBUTION WIDTH 18.3 % (11.5-14.0); SEGMENTED NEUTROPHILS % (AUTO) 84.6 % (42-78); WHITE BLOOD COUNT 7.2 10^3/uL (4.0-10.5)
[2017-03-18] MEDS: IPRATROPIUM/ALBUTEROL 0.5-2.5 MG/3 ML AMPUL NEB SCH ×3 (07:54→20:19)
[2017-03-18] MEDS: INSULIN LISPRO 100 UNIT/ML 3 ML VIAL SUBCUT PRN ×3 (13:50→23:20)
[2017-03-18] MEDS ORDERED: HALOPERIDOL LACTATE INJ 5 MG/1 ML VIAL IV PRN (14:00)
--- NOTE | 2017-03-18 16:17 | Physician Advisory Note ---
Physician Advisor ProgressNote .: Pursuant to the plan for [facility], I have reviewed the medical record for this patient. Physician Advisor Statement: Nice documentation of Ac Resp Acidosis, HUE, CKD stage 3. Please consider documentin. "Acute hypernatemia, likely due to ____" [intravascular volume depletion?] 2. Supporting evidence for dx of "Ac Hypercapneic Resp Failure". Thanks! CK
[2017-03-18] MEDS ORDERED: NORMAL SALINE 1000 ML 1,000 ML IV PRN (16:36)
[2017-03-18] MEDS ORDERED: FUROSEMIDE INJ/PF 40 MG/4 ML SDV IV ONE (17:30)
--- NOTE | 2017-03-18 20:55 | PDOC PROGRESS REPORT ---
Subjective Progress Note for:: 03/18/17 Subjective:: Patient was seen by the bedside, the urine output is low about 400 ml the last 8 hour shift. Physical Exam Vital Signs: Temp Pulse Resp BP Pulse Ox 98.3 F 116 H 16 135/65 H 100 03/18/17 15:25 03/18/17 15:25 03/18/17 15:25 03/18/17 15:25 03/18/17 15:25 Intake & Output 03/17/17 03/18/17 03/19/17 06:59 06:59 06:59 Intake Total 940 1724 2768 Output Total 400 900 125 Balance 597 188 9807 Weight 72 kg 72.7 kg General appearance: PRESENT: no acute distress Eye exam: PRESENT: PERRLA Respiratory exam: PRESENT: wheezes Cardiovascular exam: PRESENT: +S1, +S2 GI/Abdominal exam: PRESENT: soft Neurological exam: PRESENT: alert, CN II-XII grossly intact Results Laboratory Results: 03/18/17 04:05 03/18/17 04:05 03/18/17 03/18/17 04:05 04:05 WBC 7.2 RBC 3.57 L Hgb 10.9 L Hct 32.5 L MCV 91 MCH 30.5 MCHC 33.5 RDW 18.3 H Plt Count 258 Seg Neutrophils % 84.6 H Lymphocytes % 14.0 Monocytes % 0.7 L Eosinophils % 0.0 Basophils % 0.7 Absolute Neutrophils 6.1 Absolute Lymphocytes 1.0 Absolute Monocytes 0.0 L Absolute Eosinophils 0.0 Absolute Basophils 0.0 Sodium 149.0 H Potassium 4.7 Chloride 116 H Carbon Dioxide 18 L Anion Gap 15 BUN 20 Creatinine 1.57 H Est GFR ( Amer) 40 L Est GFR (Non-Af Amer) 33 L Glucose 178 H Calcium 9.5 Total Bilirubin 0.4 AST 14 ALT 18 Alkaline Phosphatase 83 Total Protein 7.4 Albumin 3.9 03/16/17 03/16/17 03/16/17 22:16 22:16 22:16 Creatine Kinase 29 L CK-MB (CK-2) < 0.22 Troponin I < 0.012 NT-Pro-B Natriuret Pep 336 03/17/17 03/17/17 03/17/17 04:24 04:24 10:30 Creatine Kinase 27 L 41 CK-MB (CK-2) < 0.22 Troponin I < 0.012 NT-Pro-B Natriuret Pep 03/17/17 10:30 Creatine Kinase CK-MB (CK-2) < 0.22 Troponin I < 0.012 NT-Pro-B Natriuret Pep Impressions: Chest X-Ray 03/16/17 11:56 IMPRESSION: NO ACUTE RADIOGRAPHIC FINDING IN THE CHEST. Head CT 03/16/17 13:17 IMPRESSION: CHRONIC CHANGES OF ATROPHY AND MICROVASCULAR ISCHEMIA. NO ACUTE PROCESS. EVIDENCE OF ACUTE STROKE: NO. Chest CT 03/17/17 00:00 IMPRESSION: 1. Thyroid goiter. 2. 3 mm right lung nodules. Surveillance imaging followup per recommendations below. Given the history of COPD, optional [address] might be considered. FLEISCHNER CRITERIA FOR FOLLOW-UP OF PULMONARY NODULES Incidentally detected new nodules in persons 35 or older. HIGH RISK: History of smoking or other known risk factors. <6mm multiple solid nodules: LOW RISK: no routine followup. HIGH RISK: optional CT 12 mo. Renal Ultrasound 03/17/17 00:00 IMPRESSION: No acute findings. Likely benign renal cysts measure up to 3.4 cm , left more than right. Assessment & Plan - Diagnosis (1) Acute hypercapnic respiratory failure Is this a current diagnosis for this admission?: Yes (2) Acute respiratory acidosis Is this a current diagnosis for this admission?: Yes (3) Acute exacerbation of chronic obstructive pulmonary disease Is this a current diagnosis for this admission?: Yes (4) Acute kidney injury Is this a current diagnosis for this admission?: Yes (5) Chronic kidney disease, stage 3 Is this a current diagnosis for this admission?: Yes (6) Hypokalemia Is this a current diagnosis for this admission?: Yes (7) Oliguria Is this a current diagnosis for this admission?: Yes Plan: The isotonic saline infusion rate is increased to 1 20/h with furosemide 40 mg IV daily
[2017-03-19 04:53] LABS: ABSOLUTE LYMPHOCYTES (AUTO) 1.7 10^3/uL (0.5-4.7); ABSOLUTE MONOCYTES (AUTO) 0.6 10^3/uL (0.1-1.4); ABSOLUTE NEUT (AUTO) 15.6 10^3/uL (1.7-8.2); BASOPHILS % (AUTO) 0.2 % (0-2); HEMOGLOBIN 9.2 g/dL (12.0-15.5); HGB HCT DIFFERENCE 0.6; LYMPHOCYTES % (AUTO) 9.3 % (13-45); MEAN CORPUSCULAR HEMOGLOBIN 30.9 pg (27.0-33.4); MEAN CORPUSCULAR HGB CONC 34.2 g/dL (32.0-36.0); MEAN CORPUSCULAR VOLUME 90 fl (80-97); MONOCYTES % (AUTO) 3.2 % (3-13); RED BLOOD COUNT 2.99 10^6/uL (3.72-5.28); RED CELL DISTRIBUTION WIDTH 18.4 % (11.5-14.0); SEGMENTED NEUTROPHILS % (AUTO) 87.3 % (42-78)
[2017-03-19 05:01] LABS: WHITE BLOOD COUNT 17.9 10^3/uL (4.0-10.5)
[2017-03-19 05:17] LABS: ALANINE AMINOTRANSFERASE 28 U/L (9-52); ALBUMIN 3.2 g/dL (3.5-5.0); ALKALINE PHOSPHATASE 79 U/L (38-126); ANION GAP 13 (5-19); ASPARTATE AMINO TRANSFERASE 16 U/L (14-36); BILIRUBIN,DIRECT 0.3 mg/dL (0.0-0.4); BILIRUBIN,TOTAL 0.3 mg/dL (0.2-1.3); BLOOD UREA NITROGEN 29 mg/dL (7-20); CALCIUM 8.6 mg/dL (8.4-10.2); CARBON DIOXIDE 17 mmol/L (22-30); CHLORIDE 113 mmol/L (98-107); CREATININE RESULT 1.87 mg/dL (0.52-1.25); GLUCOSE 154 mg/dL (75-110); POTASSIUM 4.5 mmol/L (3.6-5.0); SODIUM 143.2 mmol/L (137-145)
[2017-03-19] MEDS: METHYLPREDNISOLONE INJ 125 MG/2 ML SDV IV SCH ×3 (06:11→21:43)
[2017-03-19] MEDS: HEPARIN SOD (PORCINE) 5,000 UNIT/ML 1 ML SYRINGE SUBCUT SCH ×3 (06:12→21:41)
[2017-03-19] MEDS: IPRATROPIUM/ALBUTEROL 0.5-2.5 MG/3 ML AMPUL NEB SCH ×3 (08:32→19:46)
[2017-03-19] MEDS ORDERED: FUROSEMIDE INJ/PF 40 MG/4 ML SDV IV SCH (10:00)
[2017-03-19 21:31] LABS: ALANINE AMINOTRANSFERASE 38 U/L (9-52); ALBUMIN 3.4 g/dL (3.5-5.0); ALKALINE PHOSPHATASE 68 U/L (38-126); ANION GAP 14 (5-19); ASPARTATE AMINO TRANSFERASE 28 U/L (14-36); BILIRUBIN,DIRECT 0.3 mg/dL (0.0-0.4); BILIRUBIN,TOTAL 0.3 mg/dL (0.2-1.3); BLOOD UREA NITROGEN 36 mg/dL (7-20); CALCIUM 8.7 mg/dL (8.4-10.2); CARBON DIOXIDE 18 mmol/L (22-30); CHLORIDE 111 mmol/L (98-107); CREATININE RESULT 1.91 mg/dL (0.52-1.25); GLUCOSE 216 mg/dL (75-110); POTASSIUM 3.8 mmol/L (3.6-5.0); SODIUM 142.7 mmol/L (137-145); TOTAL PROTEIN 6.3 g/dL (6.3-8.2)
[2017-03-19] MEDS: ATORVASTATIN CALCIUM 20 MG TABLET PO SCH (21:32)
[2017-03-19] MEDS: INSULIN LISPRO 100 UNIT/ML 3 ML VIAL SUBCUT PRN (21:41)
[2017-03-19] MEDS: NORMAL SALINE 1000 ML 1,000 ML IV PRN (21:44)
[2017-03-20] MEDS: HEPARIN SOD (PORCINE) 5,000 UNIT/ML 1 ML SYRINGE SUBCUT SCH ×3 (06:33→22:32)
[2017-03-20] MEDS: METHYLPREDNISOLONE INJ 125 MG/2 ML SDV IV SCH (06:34)
[2017-03-20] MEDS: INSULIN LISPRO 100 UNIT/ML 3 ML VIAL SUBCUT PRN ×3 (07:49→22:32)
[2017-03-20] MEDS: IPRATROPIUM/ALBUTEROL 0.5-2.5 MG/3 ML AMPUL NEB SCH ×3 (08:01→20:15)
--- NOTE | 2017-03-20 09:24 | PDOC PROGRESS REPORT ---
Subjective Progress Note for:: 03/19/17 Subjective:: Patient was seen by the bedside, the nurses stated that she had episode of confusion and she says stupid things, she has baseline vascular dementia. She is still on Solu-Medrol for the acute COPD exacerbation Physical Exam Vital Signs: Temp Pulse Resp BP Pulse Ox 97.7 F 82 18 116/54 L 97 03/20/17 07:41 03/20/17 08:00 03/20/17 08:00 03/20/17 07:41 03/20/17 08:00 Intake & Output 03/19/17 03/20/17 03/21/17 06:59 06:59 06:59 Intake Total 5017 3571 Output Total 1725 2400 Balance 3292 1171 Weight 72.5 kg 76 kg General appearance: PRESENT: no acute distress Eye exam: PRESENT: PERRLA Respiratory exam: PRESENT: rhonchi Cardiovascular exam: PRESENT: +S1, +S2 GI/Abdominal exam: PRESENT: soft Neurological exam: PRESENT: alert, CN II-XII grossly intact Results Laboratory Results: 03/19/17 03:39 03/19/17 21:00 03/19/17 21:00 Sodium 142.7 Potassium 3.8 Chloride 111 H Carbon Dioxide 18 L Anion Gap 14 BUN 36 H Creatinine 1.91 H Est GFR ( Amer) 32 L Est GFR (Non-Af Amer) 26 L Glucose 216 H Calcium 8.7 Total Bilirubin 0.3 AST 28 ALT 38 Alkaline Phosphatase 68 Total Protein 6.3 Albumin 3.4 L 03/16/17 03/16/17 03/16/17 22:16 22:16 22:16 Creatine Kinase 29 L CK-MB (CK-2) < 0.22 Troponin I < 0.012 NT-Pro-B Natriuret Pep 336 03/17/17 03/17/17 03/17/17 04:24 04:24 10:30 Creatine Kinase 27 L 41 CK-MB (CK-2) < 0.22 Troponin I < 0.012 NT-Pro-B Natriuret Pep 03/17/17 10:30 Creatine Kinase CK-MB (CK-2) < 0.22 Troponin I < 0.012 NT-Pro-B Natriuret Pep Impressions: Chest X-Ray 03/16/17 11:56 IMPRESSION: NO ACUTE RADIOGRAPHIC FINDING IN THE CHEST. Head CT 03/16/17 13:17 IMPRESSION: CHRONIC CHANGES OF ATROPHY AND MICROVASCULAR ISCHEMIA. NO ACUTE PROCESS. EVIDENCE OF ACUTE STROKE: NO. Chest CT 03/17/17 00:00 IMPRESSION: 1. Thyroid goiter. 2. 3 mm right lung nodules. Surveillance imaging followup per recommendations below. Given the history of COPD, optional [address] might be considered. FLEISCHNER CRITERIA FOR FOLLOW-UP OF PULMONARY NODULES Incidentally detected new nodules in persons 35 or older. HIGH RISK: History of smoking or other known risk factors. <6mm multiple solid nodules: LOW RISK: no routine followup. HIGH RISK: optional CT 12 mo. Renal Ultrasound 03/17/17 00:00 IMPRESSION: No acute findings. Likely benign renal cysts measure up to 3.4 cm , left more than right. Assessment & Plan - Diagnosis (1) Acute hypercapnic respiratory failure Is this a current diagnosis for this admission?: Yes (2) Acute respiratory acidosis Is this a current diagnosis for this admission?: Yes (3) Acute exacerbation of chronic obstructive pulmonary disease Is this a current diagnosis for this admission?: Yes (4) Acute kidney injury Is this a current diagnosis for this admission?: Yes (5) Chronic kidney disease, stage 3 Is this a current diagnosis for this admission?: Yes (6) Hypokalemia Is this a current diagnosis for this admission?: Yes (7) Oliguria Is this a current diagnosis for this admission?: Yes - Plan Summary Plan Summary: She will continue the IV Solu-Medrol
[2017-03-20 10:54] LABS: ALANINE AMINOTRANSFERASE 51 U/L (9-52); ALBUMIN 4.4 g/dL (3.5-5.0); ALKALINE PHOSPHATASE 73 U/L (38-126); ANION GAP 18 (5-19); ASPARTATE AMINO TRANSFERASE 38 U/L (14-36); BILIRUBIN,DIRECT 0.5 mg/dL (0.0-0.4); BILIRUBIN,TOTAL 0.5 mg/dL (0.2-1.3); BLOOD UREA NITROGEN 38 mg/dL (7-20); CALCIUM 9.4 mg/dL (8.4-10.2); CARBON DIOXIDE 19 mmol/L (22-30); CHLORIDE 112 mmol/L (98-107); CREATININE RESULT 1.87 mg/dL (0.52-1.25); GLUCOSE 189 mg/dL (75-110); POTASSIUM 3.9 mmol/L (3.6-5.0); SODIUM 149.1 mmol/L (137-145)
[2017-03-20] MEDS ORDERED: (PENDING PHARMACY ID) (Losartan/Hydrochlorothiazide [Losartan-Hctz 100-25 Mg Tab] 1 TAB) PO SCH (12:15)
[2017-03-20] MEDS ORDERED: (PENDING PHARMACY ID) (Exenatide Microspheres [Bydureon Pen] 2 MG) SQ SCH (12:15)
[2017-03-20] MEDS ORDERED: (PENDING PHARMACY ID) (Pramipexole Di-Hcl [Mirapex] 0.125 MG) PO SCH (12:15)
[2017-03-20 12:35] LABS: HEMATOCRIT 29.5 % (36.0-47.0); HEMOGLOBIN 10.1 g/dL (12.0-15.5); HGB HCT DIFFERENCE 0.8; MEAN CORPUSCULAR HEMOGLOBIN 30.9 pg (27.0-33.4); MEAN CORPUSCULAR HGB CONC 34.2 g/dL (32.0-36.0); MEAN CORPUSCULAR VOLUME 90 fl (80-97); RED BLOOD COUNT 3.27 10^6/uL (3.72-5.28); RED CELL DISTRIBUTION WIDTH 18.8 % (11.5-14.0)
--- NOTE | 2017-03-20 12:43 | PDOC PROGRESS REPORT ---
Subjective Progress Note for:: 03/20/17 Subjective:: Patient was seen by the bedside, she is less confused today. Physical Exam Vital Signs: Temp Pulse Resp BP Pulse Ox 97.7 F 82 18 116/54 L 97 03/20/17 07:41 03/20/17 08:00 03/20/17 08:00 03/20/17 07:41 03/20/17 08:00 Intake & Output 03/19/17 03/20/17 03/21/17 06:59 06:59 06:59 Intake Total 5017 3571 Output Total 1725 2400 Balance 3292 1171 Weight 72.5 kg 76 kg General appearance: PRESENT: no acute distress Eye exam: PRESENT: PERRLA Respiratory exam: PRESENT: rhonchi Cardiovascular exam: PRESENT: +S1, +S2 GI/Abdominal exam: PRESENT: soft Neurological exam: PRESENT: alert Results Laboratory Results: 03/20/17 10:19 03/19/17 03/20/17 03/20/17 21:00 10:19 10:19 WBC Cancelled RBC Cancelled Hgb Cancelled Hct Cancelled MCV Cancelled MCH Cancelled MCHC Cancelled RDW Cancelled Plt Count Cancelled Seg Neutrophils % Cancelled Lymphocytes % Cancelled Monocytes % Cancelled Eosinophils % Cancelled Basophils % Cancelled Absolute Neutrophils Cancelled Absolute Lymphocytes Cancelled Absolute Monocytes Cancelled Absolute Eosinophils Cancelled Absolute Basophils Cancelled Sodium 142.7 149.1 H Potassium 3.8 3.9 Chloride 111 H 112 H Carbon Dioxide 18 L 19 L Anion Gap 14 18 BUN 36 H 38 H Creatinine 1.91 H 1.87 H Est GFR ( Amer) 32 L 33 L Est GFR (Non-Af Amer) 26 L 27 L Glucose 216 H 189 H Calcium 8.7 9.4 Total Bilirubin 0.3 0.5 AST 28 38 H ALT 38 51 Alkaline Phosphatase 68 73 Total Protein 6.3 8.0 Albumin 3.4 L 4.4 03/16/17 03/16/17 03/16/17 22:16 22:16 22:16 Creatine Kinase 29 L CK-MB (CK-2) < 0.22 Troponin I < 0.012 NT-Pro-B Natriuret Pep 336 03/17/17 03/17/17 03/17/17 04:24 04:24 10:30 Creatine Kinase 27 L 41 CK-MB (CK-2) < 0.22 Troponin I < 0.012 NT-Pro-B Natriuret Pep 03/17/17 10:30 Creatine Kinase CK-MB (CK-2) < 0.22 Troponin I < 0.012 NT-Pro-B Natriuret Pep Impressions: Chest X-Ray 03/16/17 11:56 IMPRESSION: NO ACUTE RADIOGRAPHIC FINDING IN THE CHEST. Head CT 03/16/17 13:17 IMPRESSION: CHRONIC CHANGES OF ATROPHY AND MICROVASCULAR ISCHEMIA. NO ACUTE PROCESS. EVIDENCE OF ACUTE STROKE: NO. Chest CT 03/17/17 00:00 IMPRESSION: 1. Thyroid goiter. 2. 3 mm right lung nodules. Surveillance imaging followup per recommendations below. Given the history of COPD, optional [address] might be considered. FLEISCHNER CRITERIA FOR FOLLOW-UP OF PULMONARY NODULES Incidentally detected new nodules in persons 35 or older. HIGH RISK: History of smoking or other known risk factors. <6mm multiple solid nodules: LOW RISK: no routine followup. HIGH RISK: optional CT 12 mo. Renal Ultrasound 03/17/17 00:00 IMPRESSION: No acute findings. Likely benign renal cysts measure up to 3.4 cm , left more than right. Assessment & Plan - Diagnosis (1) Acute hypercapnic respiratory failure Is this a current diagnosis for this admission?: Yes (2) Acute respiratory acidosis Is this a current diagnosis for this admission?: Yes (3) Acute exacerbation of chronic obstructive pulmonary disease Is this a current diagnosis for this admission?: Yes Plan: The IV Solu-Medrol be discontinued and transitioned to p.o. prednisone (4) Acute kidney injury Is this a current diagnosis for this admission?: Yes (5) Chronic kidney disease, stage 3 Is this a current diagnosis for this admission?: Yes (6) Hypokalemia Is this a current diagnosis for this admission?: Yes (7) Oliguria Is this a current diagnosis for this admission?: Yes
[2017-03-20] MEDS ORDERED: PREDNISONE 20 MG TABLET PO ONE (12:45)
[2017-03-20] MEDS ORDERED: PIOGLITAZONE HCL 15 MG TABLET PO ONE (12:45)
[2017-03-20 12:55] LABS: BAND NEUTROPHILS % (MANUAL) 2 % (3-5); BASOPHILS % (MANUAL) 0 % (0-2); EOSINOPHILS % (MANUAL) 0 % (0-6); LYMPHOCYTES % (MANUAL) 8 % (13-45); TOTAL CELLS COUNTED 100
[2017-03-20 12:56] LABS: ANISOCYTOSIS 1+; BURR CELLS 1+; OVALOCYTES 1+; PLATELET CLUMPS PRESENT; POIKILOCYTOSIS 2+
[2017-03-20] MEDS ORDERED: HYDROCHLOROTHIAZIDE 25 MG TABLET PO ONE (13:00)
[2017-03-20] MEDS ORDERED: PRAMIPEXOLE DI-HCL 0.25 MG TABLET PO ONE (13:00)
[2017-03-20] MEDS ORDERED: LOSARTAN POTASSIUM 50 MG TABLET PO ONE (13:00)
[2017-03-20] MEDS: NORMAL SALINE 1000 ML 1,000 ML IV PRN (21:59)
[2017-03-20] MEDS ORDERED: DONEPEZIL HCL 5 MG TABLET PO SCH (22:00)
[2017-03-20] MEDS: PRAMIPEXOLE DI-HCL 0.25 MG TABLET PO SCH (22:31)
[2017-03-20] MEDS: ATORVASTATIN CALCIUM 20 MG TABLET PO SCH (22:32)
[2017-03-21 05:03] LABS: HEMATOCRIT 31.5 % (36.0-47.0); HEMOGLOBIN 10.5 g/dL (12.0-15.5); MEAN CORPUSCULAR HEMOGLOBIN 30.5 pg (27.0-33.4); MEAN CORPUSCULAR HGB CONC 33.4 g/dL (32.0-36.0); MEAN CORPUSCULAR VOLUME 91 fl (80-97); RED BLOOD COUNT 3.45 10^6/uL (3.72-5.28); WHITE BLOOD COUNT 14.8 10^3/uL (4.0-10.5)
[2017-03-21] MEDS: HEPARIN SOD (PORCINE) 5,000 UNIT/ML 1 ML SYRINGE SUBCUT SCH ×2 (05:09→14:23)
[2017-03-21 05:19] LABS: BAND NEUTROPHILS % (MANUAL) 1 % (3-5); BASOPHILS % (MANUAL) 0 % (0-2); EOSINOPHILS % (MANUAL) 0 % (0-6); LYMPHOCYTES % (MANUAL) 12 % (13-45); TOTAL CELLS COUNTED 100
[2017-03-21 05:23] LABS: ALANINE AMINOTRANSFERASE 49 U/L (9-52); ALBUMIN 3.4 g/dL (3.5-5.0); ALKALINE PHOSPHATASE 74 U/L (38-126); ANION GAP 14 (5-19); ANISOCYTOSIS 2+; ASPARTATE AMINO TRANSFERASE 36 U/L (14-36); BILIRUBIN,DIRECT 0.3 mg/dL (0.0-0.4); BILIRUBIN,TOTAL 0.3 mg/dL (0.2-1.3); BLOOD UREA NITROGEN 40 mg/dL (7-20); BURR CELLS 2+; CALCIUM 8.7 mg/dL (8.4-10.2); CARBON DIOXIDE 21 mmol/L (22-30); CHLORIDE 114 mmol/L (98-107); CREATININE RESULT 1.78 mg/dL (0.52-1.25); GLUCOSE 149 mg/dL (75-110); PLATELET CLUMPS PRESENT; POIKILOCYTOSIS 1+; POLYCHROMASIA SLIGHT; POTASSIUM 3.6 mmol/L (3.6-5.0); SCHISTOCYTES 1+; SODIUM 148.5 mmol/L (137-145); TOTAL PROTEIN 6.4 g/dL (6.3-8.2); TOXIC GRANULATION 1+
[2017-03-21] MEDS: IPRATROPIUM/ALBUTEROL 0.5-2.5 MG/3 ML AMPUL NEB SCH ×2 (07:54→13:56)
[2017-03-21] MEDS: PRAMIPEXOLE DI-HCL 0.25 MG TABLET PO SCH (09:42)
[2017-03-21] MEDS ORDERED: PIOGLITAZONE HCL 15 MG TABLET PO SCH (10:00)
[2017-03-21] MEDS ORDERED: LOSARTAN POTASSIUM 50 MG TABLET PO SCH (10:00)
[2017-03-21] MEDS ORDERED: PREDNISONE 20 MG TABLET PO SCH (10:00)
[2017-03-21] MEDS ORDERED: HYDROCHLOROTHIAZIDE 25 MG TABLET PO SCH (10:00)
--- NOTE | 2017-03-21 15:52 | PDOC DISCHARGE SUMMARY ---
General - Admit/Disc Date/PCP Admission Date/Primary Care Provider: 03/16/17 21:26 DANY BENAVIDES MD Discharge Date: 03/21/17 - Discharge Diagnosis (1) Acute hypercapnic respiratory failure Is this a current diagnosis for this admission?: Yes (2) Acute respiratory acidosis Is this a current diagnosis for this admission?: Yes (3) Acute exacerbation of chronic obstructive pulmonary disease Is this a current diagnosis for this admission?: Yes (4) Acute kidney injury Is this a current diagnosis for this admission?: Yes (5) Chronic kidney disease, stage 3 Is this a current diagnosis for this admission?: Yes (6) Hypokalemia Is this a current diagnosis for this admission?: Yes (7) Oliguria Is this a current diagnosis for this admission?: Yes - Additional Information Resuscitation Status: Full Code Discharge Diet: Diabetic Discharge Activity: Activity As Tolerated Home Medications: Atorvastatin Calcium [Lipitor 20 mg Tablet] 20 mg PO DAILY 03/16/17 Exenatide Microspheres [Bydureon Pen] 2 mg SQ Q7D 03/16/17 Losartan/Hydrochlorothiazide [Losartan-Hctz 100-25 mg Tab] 1 tab PO DAILY Pioglitazone HCl [Actos 15 mg Tablet] 15 mg PO DAILY 03/16/17 Pramipexole Di-HCl [Mirapex] 0.125 mg PO Q12 03/16/17 Donepezil HCl [Aricept] 10 mg PO DAILY #90 tablet 03/21/17 Prednisone [Deltasone 20 mg Tablet] 60 mg PO DAILY #20 tablet 03/21/17 Tiotropium Br/Olodaterol HCl [Stiolto Respimat Inhal Scribner] 4 gm IH DAILY #4 mist.inhal 03/21/17 History of Present Illness History of Present Illness: MICAH WOMACK is a 66 year old female, she was transported from home to the emergency room by EMS because she was unresponsive. She was noticed by significant other/living-in to be shaking but not responsive he called rescue squad, when EMS arrived sternal pressure was applied she was then transported to the emergency room for further evaluation in the emergency room when she arrived venous blood gas was done pH 7.27, PCO2 51.4 bicarbonate 23.2, the blood work that was done showed creatinine of 2.05, potassium 3.2. She was admitted for observation on February 25, 2017 when she presented in a similar fashion with altered mental status at that time she was found to have hypokalemia with elevated serum creatinine. She has a history of chronic kidney disease stage III on that admission she was treated with IV fluid with improvement in the kidney function when she was discharged the last time the serum creatinine was 1.72, where she was admitted was 2.14, there was slight improvement with hydration of the kidney function serum creatinine when she arrived today was 2.05. Since discharge on February 26, 2017 she has not come to the office for follow-up. She is very noncompliant with her diabetic care, she continued to smoke cigarettes, she has vascular dementia. Kidney ultrasound was done he showed a small right kidney, the right kidney measures 7.2 cm in size the left kidney measures 8.7 cm in size and it contains benign cyst that measures 3.4 [address] a [address] head was done was negative for any acute infarction Hospital Course Hospital Course: She was admitted for the management of acute hypercapnic respiratory acidosis associated with CO2 narcosis, COPD acute exacerbation. She was treated with IV Solu-Medrol and antibiotic. She also had bronchodilators with DuoNeb. She has underlining chronic kidney disease stage III with superimposed acute kidney injury due to prerenal dehydration. She was treated with IV fluid normal saline with improvement in kidney function, she also hypokalemia this was repleted. Physical Exam Vital Signs: Temp Pulse Resp BP Pulse Ox 97.5 F 70 18 131/57 H 97 03/21/17 12:14 03/21/17 13:58 03/21/17 13:58 03/21/17 12:14 03/21/17 13:58 Intake & Output 03/20/17 03/21/17 03/22/17 06:59 06:59 06:59 Intake Total 3571 1409 354 Output Total 2400 975 300 Balance 1171 434 54 Weight 76 kg 80.1 kg General appearance: PRESENT: no acute distress, well-developed, well-nourished Head exam: PRESENT: atraumatic, normocephalic Eye exam: PRESENT: conjunctiva pink, EOMI, PERRLA Ear exam: PRESENT: normal external ear exam Mouth exam: PRESENT: moist, tongue midline Neck exam: PRESENT: full ROM Respiratory exam: PRESENT: clear to auscultation chris Cardiovascular exam: PRESENT: RRR, +S1, +S2 Pulses: PRESENT: normal dorsalis pedis pul, +2 pedal pulses bilateral Vascular exam: PRESENT: normal capillary refill GI/Abdominal exam: PRESENT: normal bowel sounds, soft Rectal exam: PRESENT: deferred Neurological exam: PRESENT: alert, CN II-XII grossly intact Psychiatric exam: PRESENT: appropriate affect, normal mood Skin exam: PRESENT: dry, intact, warm Results Laboratory Results: 03/21/17 04:01 03/21/17 04:01 03/21/17 03/21/17 04:01 04:01 WBC 14.8 H RBC 3.45 L Hgb 10.5 L Hct 31.5 L MCV 91 MCH 30.5 MCHC 33.4 RDW 19.0 H Plt Count 215 Seg Neutrophils % Not Reportable Lymphocytes % Not Reportable Monocytes % Not Reportable Eosinophils % Not Reportable Basophils % Not Reportable Absolute Neutrophils Not Reportable Absolute Lymphocytes Not Reportable Absolute Monocytes Not Reportable Absolute Eosinophils Not Reportable Absolute Basophils Not Reportable Sodium 148.5 H Potassium 3.6 Chloride 114 H Carbon Dioxide 21 L Anion Gap 14 BUN 40 H Creatinine 1.78 H Est GFR ( Amer) 35 L Est GFR (Non-Af Amer) 29 L Glucose 149 H Calcium 8.7 Total Bilirubin 0.3 AST 36 ALT 49 Alkaline Phosphatase 74 Total Protein 6.4 Albumin 3.4 L 03/16/17 03/16/17 03/16/17 22:16 22:16 22:16 Creatine Kinase 29 L CK-MB (CK-2) < 0.22 Troponin I < 0.012 NT-Pro-B Natriuret Pep 336 03/17/17 03/17/17 03/17/17 04:24 04:24 10:30 Creatine Kinase 27 L 41 CK-MB (CK-2) < 0.22 Troponin I < 0.012 NT-Pro-B Natriuret Pep 03/17/17 10:30 Creatine Kinase CK-MB (CK-2) < 0.22 Troponin I < 0.012 NT-Pro-B Natriuret Pep Impressions: Chest X-Ray 03/16/17 11:56 IMPRESSION: NO ACUTE RADIOGRAPHIC FINDING IN THE CHEST. Head CT 03/16/17 13:17 IMPRESSION: CHRONIC CHANGES OF ATROPHY AND MICROVASCULAR ISCHEMIA. NO ACUTE PROCESS. EVIDENCE OF ACUTE STROKE: NO. Chest CT 03/17/17 00:00 IMPRESSION: 1. Thyroid goiter. 2. 3 mm right lung nodules. Surveillance imaging followup per recommendations below. Given the history of COPD, optional [address] might be considered. FLEISCHNER CRITERIA FOR FOLLOW-UP OF PULMONARY NODULES Incidentally detected new nodules in persons 35 or older. HIGH RISK: History of smoking or other known risk factors. <6mm multiple solid nodules: LOW RISK: no routine followup. HIGH RISK: optional CT 12 mo. Renal Ultrasound 03/17/17 00:00 IMPRESSION: No acute findings. Likely benign renal cysts measure up to 3.4 cm , left more than right.
[2017-03-21 15:53] VITALS: BP 104/47
== END 2017-03-21 16:35 | disposition home or self-care (01) | DRG 189 ==
LOC: ER 11:51 → EH 17:03 → OBSVTOIN 21:26 → 3N 21:42
PROVIDERS: ADMIT Internal Medicine; ATTEND Internal Medicine
DX: J96.02 Acute respiratory failure with hypercapnia (principal); J44.1 Chronic obstructive pulmonary disease with (acute) exacerbation; N17.9 Acute kidney failure, unspecified; I12.9 Hypertensive chronic kidney disease with stage 1 through stage 4 chronic kidney disease, or unspecified chronic kidney disease; E11.22 Type 2 diabetes mellitus with diabetic chronic kidney disease; N18.3 Chronic kidney disease, stage 3 (moderate); E87.6 Hypokalemia; F01.50 Vascular dementia, unspecified severity, without behavioral disturbance, psychotic disturbance, mood disturbance, and anxiety; K21.9 Gastro-esophageal reflux disease without esophagitis; M13.80 Other specified arthritis, unspecified site; R34 Anuria and oliguria; E86.0 Dehydration; N28.1 Cyst of kidney, acquired; M19.90 Unspecified osteoarthritis, unspecified site; F17.200 Nicotine dependence, unspecified, uncomplicated; Z91.19 Patient's noncompliance with other medical treatment and regimen; Z79.899 Other long term (current) drug therapy; Z79.84 Long term (current) use of oral hypoglycemic drugs; Z86.73 Personal history of transient ischemic attack (TIA), and cerebral infarction without residual deficits
CPT/HCPCS: 36415; 36600; 51702; 70450; 71010; 71250; 76770; 80048; 80053; 80061; 80076; 80307; 81001; 82140; 82150; 82550; 82553; 82803; 82962; 83036; 83605; 83690; 83735; 83880; 84100; 84133; 84300; 84439; 84443; 84484; 85025; 85610; 85730; 87040; 87086; 93005; 93010; 94640; 94660; 96365; 99285; J0696; J1644; J1815; J1940; J2930; J3490; J7030; J7512; J7620

== ENCOUNTER 2017-05-05 11:05 | Emergency (ER) | payer MEDICARE, MEDICAID ==
[2017-05-05] MEDS ORDERED: NORMAL SALINE 1000 ML 1,000 ML IV ONE (11:39)
--- NOTE | 2017-05-05 11:39 | ER Document Report ---
ED General - General Chief Complaint: Feet Swelling Stated Complaint: FEET SWELLING Time Seen by Provider: 05/05/17 11:30 Notes: Patient is a 66-year-old female presents emergency department via EMS with a chief complaint of foot swelling. Per EMS there is no stated complaint upon arrival by the patient but has been stated that she was having swelling in her foot and is been tired this morning. Patient otherwise denies any pain or discomfort. Past medical history significant for COPD and asthma, CVA TRAVEL OUTSIDE OF THE [place] IN LAST 30 DAYS: No - Related Data Allergies/Adverse Reactions: No Known Allergies Allergy (Verified 03/16/17 12:45) Past Medical History - Social History Smoking Status: Smoker,Current Status Unk Family History: Reviewed & Not Pertinent - Past Medical History Cardiac Medical History: Reports: Hx Hypercholesterolemia, Hx Hypertension Pulmonary Medical History: Reports: Hx Asthma, Hx COPD Neurological Medical History: Reports: Hx Cerebrovascular Accident Endocrine Medical History: Reports: Hx Diabetes Mellitus Type 1, Hx Diabetes Mellitus Type 2 Renal/ Medical History: Reports: Hx Renal Insufficiency. Denies: Hx Peritoneal Dialysis GI Medical History: Reports: Hx Gastroesophageal Reflux Disease Musculoskeltal Medical History: Reports Hx Arthritis - Degenerative Psychiatric Medical History: Reports: Hx Dementia - Vascular dementia Denies: Hx Depression - Immunizations Hx Diphtheria, Pertussis, Tetanus Vaccination: Yes Hx Pneumococcal Vaccination: 06/04/12 Review of Systems - Review of Systems Constitutional: No symptoms reported Cardiovascular: No symptoms reported Respiratory: No symptoms reported Gastrointestinal: No symptoms reported Genitourinary: No symptoms reported -: Yes All other systems reviewed and negative Physical Exam - Vital signs Vitals: Temp Pulse BP Pulse Ox 97.5 F 77 90/46 L 87 L 05/05/17 11:25 05/05/17 11:25 05/05/17 11:25 05/05/17 11:25 - Notes Notes: PHYSICAL EXAM GENERAL: Alert, interacts well. HEAD: Normocephalic, atraumatic. LUNGS: Clear to auscultation bilaterally, no wheezes, rales, or rhonchi. No respiratory distress. HEART: Regular rate and rhythm. No murmurs, gallops, or rubs. ABDOMEN: Soft, nondistended, nontender. No guarding, rebound, or rigidity.. Bowel sounds present in all 4 quadrants. EXTREMITIES: moves all 4 extremities spontaneously. 2+ left pitting pretibial edema and over the left foot without evidence of ecchymosis, deformity. Radial and dorsalis pedis pulses 2/4 bilaterally. No cyanosis. NEUROLOGICAL: Alert and oriented x4. Normal speech. PSYCH: Normal affect, normal mood. SKIN: Warm, dry, normal turgor. No rashes or lesions noted. Course - Re-evaluation Re-evalutation: 05/05/17 14:03 Patient is a 66-year-old female is hemodynamically stable, no acute distress and afebrile. Mild hypotension but patient is mildly lethargic but cooperative. She is oriented to person, place and time.. 05/05/17 15:35 Patient mental status improved after IV fluids. is at the bedside stating that she is acting like her normal self. Presentation is consistent with pyelonephritis. Low suspicion for sepsis given no tachycardia, patient is afebrile, no elevation of white count and kidney function is at baseline per review of the chart. patient did receive a dose of PO Levaquin and discharge home. Discussed with Dr. Benavides who is agreeable with plan will follow up with her in the office. - Vital Signs Vital signs: Temp Pulse Resp BP Pulse Ox 98.6 F 96 14 98/62 L 96 05/05/17 16:35 05/05/17 16:35 05/05/17 16:35 05/05/17 16:35 05/05/17 16:35 - Laboratory Result Diagrams: 05/05/17 13:15 05/05/17 13:15 Laboratory results interpreted by me: 05/05/17 05/05/17 05/05/17 13:15 13:15 14:41 Hct 35.4 L RDW 19.7 H BUN 24 H Creatinine 1.89 H Est GFR ( Amer) 32 L Est GFR (Non-Af Amer) 27 L Direct Bilirubin 0.5 H Urine Blood SMALL H Urine Nitrite POSITIVE H Urine Urobilinogen 2.0 H Ur Leukocyte Esterase LARGE H Discharge - Discharge Clinical Impression: Pyelonephritis Condition: Good Disposition: HOME, SELF-CARE Additional Instructions: PYELONEPHRITIS: Your evaluation shows evidence of pyelonephritis. This is an infection in the kidney. Typical symptoms are fever, pain in the flank, pain on urination, and frequent urination. Many cases of pyelonephritis can be treated at home. Hospital care may be necessary for patients who are very ill, or elderly or . Pyelonephritis is treated with antibiotics. Be sure to take all the medication as prescribed. Drink plenty of liquids (about three quarts per day) . You may take acetaminophen for fever. You should feel significantly improved within two days. You should have a recheck of your urine in about one week to insure that the infection is gone. Return for a re-examination if your symptoms worsen in any way -- such as high fever, shaking chills, severe weakness or dizziness, severe pain, or inability to pass your urine. ANTINAUSEA MEDICATION: You have been given a medication to suppress nausea and vomiting. This type of medication can be given as a shot, pill, or suppository. It will usually last for many hours. Pills and shots usually last six to eight hours, suppositories last about 12 hours. For the typical illness, only one or two doses of the medication may be necessary. Mild lightheadedness may occur. This type of medicine can cause drowsiness. Do not drive or operate dangerous machinery while under its influence. Do not mix with alcohol. See your doctor at once if you have muscle spasms or tightness, or uncontrollable motions (particularly of the neck, mouth, or jaw). Persistent vomiting or severe lightheadedness should also be evaluated by the physician. ANTIBIOTIC THERAPY: You have been given an antibiotic prescription. It's important that you take all the medication, unless instructed otherwise by your physician. Failure to complete the entire course can result in relapse of your condition. Common side effects of antibiotics include nausea, intestinal cramping, or diarrhea. Women may develop vaginal yeast infections, and babies can get yeast (thrush) in the mouth following the use of antibiotics. Contact your physician if you develop significant side effects from this medication. Allergy to this antibiotic can result in hives, wheezing, faintness, or itching. If symptoms of allergy occur, stop the medication and call the doctor. LEVOFLOXACIN: You have been given an antibacterial agent, levofloxacin (Levaquin). This medicine is not related to the penicillins, sulfas, cephalosporins, or tetracyclines. It is often given to patients who are allergic to these drugs. It has been chosen for you either because other drugs are not appropriate, or because of the nature of your problem. Levaquin should not be taken with antacids, as these can decrease its effectiveness. It can be taken without regard to meals. LEVAQUIN SHOULD NOT BE TAKEN BY CHILDREN, NURSING WOMEN, OR WOMEN. Although Levaquin is usually well-tolerated, common side effects can include nausea and diarrhea. Contact your doctor if you experience any unusual symptoms while on this medication, such as joint pain or swelling, shortness of breath, wheezing, faintness, or hives. CIPROFLOXACIN: You have been given an antibacterial agent, ciprofloxacin (Cipro). This medicine is not related to the penicillins, sulfas, cephalosporins, or tetracyclines. It is often given to patients who are allergic to these drugs. It has been chosen for you either because other drugs are not appropriate, or because of the nature of your problem. Cipro should not be taken with antacids, as these can decrease its effectiveness. It can be taken without regard to meals. CIPRO SHOULD NOT BE TAKEN BY CHILDREN, NURSING WOMEN, OR WOMEN. Although Cipro is usually well-tolerated, common side effects can include nausea and diarrhea. Contact your doctor if you experience any unusual symptoms while on this medication, such as joint pain or swelling, shortness of breath, wheezing, faintness, or hives. NITROFURANTOIN (MACRODANTIN, MACROBID): You have received a prescription for nitrofurantoin (Macrodantin). This antibiotic is used for urinary tract infections. Women who are or nursing should notify the physician before taking this medicine. If you have ever had a problem caused by this medication in the past, be sure the physician is aware of it. Common side effects of this medicine include nausea, vomiting, or decreased appetite. Notify your physician if these side effects become severe. Immediately stop this medicine and call the physician if you develop cough , shortness of breath, chest pain, weakness, jaundice (yellow color of the skin and whites of the eyes), or a skin rash. TRIMETHOPRIM-SULFA: You have been given a prescription for trimethoprim-sulfa (TMS, Septra, Bactrim). This is a combination antibiotic of the sulfa class, often used for urinary tract infections, middle ear infections, bronchitis, shigella intestinal infection, and Pneumocystis pneumonia. TMS is usually well-tolerated. Occasional side effects include nausea and decreased appetite. Septra is not recommended for infants less than two months of age. Do not take this medication if you have experienced severe side effects or allergy to sulfa medicine. You should stop this medicine at once and contact your physician if you develop any rash, joint pain, shortness of breath, bruising, or jaundice ( yellow color in the skin), or if you develop any other new or unusual symptoms. CEPHALEXIN: The antibiotic you've been prescribed is a member of the cephalosporin class. This type of antibiotic covers a wide variety of infections, including those of the skin, lungs, and urinary tract. It's useful for staph infections. This antibiotic is slightly similar to the penicillin family. In rare cases , a person who is allergic to penicillin will also be allergic to this medication. If you have had a severe allergic reaction to penicillin, and have not taken this antibiotic since that time, notify your doctor. Antibiotics which cover many germs ("broad spectrum" antibiotics) are more likely to cause diarrhea or "yeast" infections. Women prone to vaginal yeast problems may suffer an attack after taking this antibiotic. In infants, oral thrush (white spots "stuck" on the cheek) or yeast diaper rash may result. See your doctor if these problems occur. Call at once if you develop itching, hives , shortness of breath, or lightheadedness. AMOXICILLIN: Amoxicillin is a member of the penicillin family. It covers the germs likely to cause ear, bronchial, and urinary infections better than plain penicillin. Amoxicillin can be taken without regard to meals. Nausea after taking the medication is rare, but can occur. Diarrhea can occur, particularly in small children. Vaginal yeast infections and oral thrush in infants are also common. Contact your physician if these problems occur. Allergy to penicillins is common. If you have had an allergic reaction to any drug of the penicillin family, you should never take any other penicillin. Notify your doctor at once if you develop hives, itching, swelling, faintness, or shortness of breath. Less serious side effects can include nausea or diarrhea. USE OF ACETAMINOPHEN (Tylenol): Acetaminophen may be taken for pain relief or fever control. It's much safer than aspirin, offering a wider range of "safe" dosages. It is safe during . Some brand names are Tylenol, Panadol, Datril, Anacin 3, Tempra, and Liquiprin. Acetaminophen can be repeated every four hours. The following are maximum recommended dosages: >89 pounds or adults 650 mg to 900 mg Acetaminophen can be repeated every four hours. Maximum dose not to exceed 4000 mg a day. ORAL NARCOTIC MEDICATION: You have been given a prescription for pain control. This medication is a narcotic. It's best taken with food, as nausea can result if taken on an empty stomach. Don't operate machinery or drive within six hours of taking this medication. Do not combine this medicine with alcohol, or with any medication which can cause sedation (such as cold tablets or sleeping pills) unless you get permission from the physician. Narcotics tend to cause constipation. If possible, drink plenty of fluids and eat a diet high in fiber and fruits. Please be aware that prescription narcotics also have the potential for abuse. People become addicted to these medications because of the general sense of wellbeing that they induce. This feeling along with a significant reduction in tension, anxiety, and aggression provides a stimulating seductive quality to these drugs. Once your pain is under control, we encourage you to discard your unused narcotics. FOLLOW-UP CARE: If you have been referred to a physician for follow-up care, call the physician s office for an appointment as you were instructed or within the next two days. If you experience worsening or a significant change in your symptoms, notify the physician immediately or return to the Emergency Department at any time for re-evaluation. Prescriptions: Levofloxacin 750 mg PO DAILY #5 tablet Metoclopramide HCl [Reglan 10 mg Tablet] 1 - 2 tab PO ASDIR PRN #15 tablet PRN Reason: Referrals: DANY BENAVIDES MD [Primary Care Provider] - Follow up in 3-5 days
--- NOTE | 2017-05-05 12:30 | RADIOLOGY REPORT (SQ) ---
"EXAM DESCRIPTION: VENOUS UNILATERAL LOWER COMPLETED DATE/TIME: 05/05/2017 12:22 pm REASON FOR STUDY: LLE with pitting edema COMPARISON: None. TECHNIQUE: Dynamic and static goldberg scale and color images acquired of the left leg venous system. Se lected spectral images acquired with additional compression and augmentation maneuvers. The contralat eral common femoral vein and saphenofemoral junction were also imaged. Images stored on PACS. LIMITATIONS: None. FINDINGS: COMMON FEMORAL: Normal phasicity, compression and augmentation. No visualized echogenic ma terial on goldberg scale. No defects on color images. FEMORAL: Normal compression and augmentation. No visualized echogenic material on goldberg scale. No defe cts on color images. POPLITEAL: Normal compression, augmentation. No visualized echogenic material on goldberg scale. No defec ts on color images. CALF VESSELS: Normal compression, augmentation. No visualized echogenic material on goldberg scale. No de fects on color images. GSV and SSV: Normal compression, augmentation. No visualized echogenic material on goldberg scale. No def ects on color images. ANY DEEP VENOUS INSUFFICIENCY: Not evaluated. ANY EVIDENCE OF POPLITEAL CYST: No. OTHER: No other significant finding. CONTRALATERAL COMMON FEMORAL VEIN AND SAPHENOFEMORAL JUNCTION: Normal phasicity, compression and augmentation. No visualized echogenic material on goldberg scale. No de fects on color images. IMPRESSION: NO EVIDENCE DVT OR SVT IN THE LEFT LEG. TECHNICAL DOCUMENTATION: JOB ID: [id number] [employer] | [employer]- All Rights Reserved"
--- NOTE | 2017-05-05 13:22 | EKG REPORT ---
SEVERITY:- ABNORMAL ECG - SINUS RHYTHM CONSIDER ANTEROSEPTAL INFARCT BORDERLINE T WAVE ABNORMALITIES : Confirmed by: Simba Stokes MD 05-May-2017 13:22:26
[2017-05-05 13:36] LABS: ABSOLUTE BASOPHILS # (AUTO) 0.1 10^3/uL (0.0-0.2); ABSOLUTE EOSINOPHILS # (AUTO) 0.1 10^3/uL (0.0-0.6); ABSOLUTE LYMPHOCYTES (AUTO) 1.7 10^3/uL (0.5-4.7); ABSOLUTE MONOCYTES (AUTO) 0.4 10^3/uL (0.1-1.4); ABSOLUTE NEUT (AUTO) 4.3 10^3/uL (1.7-8.2); BASOPHILS % (AUTO) 0.8 % (0-2); EOSINOPHILS % (AUTO) 1.4 % (0-6); HEMATOCRIT 35.4 % (36.0-47.0); HEMOGLOBIN 12.1 g/dL (12.0-15.5); HGB HCT DIFFERENCE 0.9; MEAN CORPUSCULAR HEMOGLOBIN 32.3 pg (27.0-33.4); MEAN CORPUSCULAR HGB CONC 34.1 g/dL (32.0-36.0); MEAN CORPUSCULAR VOLUME 95 fl (80-97); MONOCYTES % (AUTO) 5.4 % (3-13); RED BLOOD COUNT 3.74 10^6/uL (3.72-5.28); RED CELL DISTRIBUTION WIDTH 19.7 % (11.5-14.0); SEGMENTED NEUTROPHILS % (AUTO) 66.4 % (42-78); WHITE BLOOD COUNT 6.5 10^3/uL (4.0-10.5)
[2017-05-05 13:57] LABS: ALANINE AMINOTRANSFERASE 23 U/L (9-52); ALBUMIN 3.8 g/dL (3.5-5.0); ALKALINE PHOSPHATASE 68 U/L (38-126); ANION GAP 10 (5-19); ASPARTATE AMINO TRANSFERASE 32 U/L (14-36); BILIRUBIN,DIRECT 0.5 mg/dL (0.0-0.4); BILIRUBIN,TOTAL 0.8 mg/dL (0.2-1.3); BLOOD UREA NITROGEN 24 mg/dL (7-20); CALCIUM 9.2 mg/dL (8.4-10.2); CARBON DIOXIDE 28 mmol/L (22-30); CHLORIDE 105 mmol/L (98-107); CREATININE RESULT 1.89 mg/dL (0.52-1.25); GLUCOSE 81 mg/dL (75-110); POTASSIUM 3.6 mmol/L (3.6-5.0); SODIUM 143.4 mmol/L (137-145); TOTAL PROTEIN 6.6 g/dL (6.3-8.2)
--- NOTE | 2017-05-05 14:45 | RADIOLOGY REPORT (SQ) ---
EXAM DESCRIPTION: FOOT LEFT COMPLETE COMPLETED DATE/TIME: 05/05/2017 2:25 pm REASON FOR STUDY: swelling COMPARISON: None. NUMBER OF VIEWS: Three views. TECHNIQUE: AP, lateral and oblique radiographic images acquired of the left foot. LIMITATIONS: None. FINDINGS: MINERALIZATION: Osteopenia. BONES: No acute fracture or dislocation. Plantar calcaneal spur. No worrisome bone lesions. JOINTS: No effusions. SOFT TISSUES: No soft tissue swelling. No foreign body. OTHER: No other significant finding. IMPRESSION: HEEL SPUR. DIFFUSE DEMINERALIZATION. NO ACUTE FINDINGS. TECHNICAL DOCUMENTATION: JOB ID: [id number] [employer]- All Rights Reserved
[2017-05-05 15:26] LABS: APPEARANCE,URINE SLIGHTLY-CLOUDY; BILIRUBIN,URINE NEGATIVE (NEGATIVE); GLUCOSE, URINE NEGATIVE (NEGATIVE); KETONES,URINE NEGATIVE (NEGATIVE); LEUKOCYTE ESTERASE,URINE LARGE (NEGATIVE); NITRITE,URINE POSITIVE (NEGATIVE); PROTEIN,URINE NEGATIVE (NEGATIVE); URINE SPECIFIC GRAVITY 1.005
[2017-05-05] MEDS ORDERED: CEFTRIAXONE 1 GM/D5W RTU 50 ML IV ONE (15:40)
[2017-05-05] MEDS ORDERED: LEVOFLOXACIN 750 MG/D5W RTU 750 MG/150 ML RTUPB IV ONE (15:41)
[2017-05-05] MEDS ORDERED: LEVOFLOXACIN 750 MG TABLET PO ONE (16:05)
[2017-05-05 17:30] VITALS: BP 98/62
== END 2017-05-05 17:29 | disposition home or self-care (01) ==
LOC: ER 11:05
DX: N12 Tubulo-interstitial nephritis, not specified as acute or chronic (principal); R60.0 Localized edema; R53.83 Other fatigue; J44.9 Chronic obstructive pulmonary disease, unspecified; I10 Essential (primary) hypertension; E11.9 Type 2 diabetes mellitus without complications; Z86.73 Personal history of transient ischemic attack (TIA), and cerebral infarction without residual deficits
CPT/HCPCS: 93005; 99284; 96360; 36415; 87086; 85025; 87088; 80053; 81001; 87186; 83880; 93971; 73630; 93010; J7030; A9270

== ENCOUNTER 2017-05-07 20:51 | Inpatient (IN) | payer MEDICARE, MEDICAID ==
--- NOTE | 2017-05-07 21:54 | ER Document Report ---
ED General - General Stated Complaint: weakness Time Seen by Provider: 05/07/17 21:35 Notes: Patient is a 66-year-old female comes emergency department for chief complaint of weakness. She comes by EMS. at bedside. He states that she was unable to stand and kept falling back onto the bed and seemed like she couldn't get up. He states she started shaking her arms around and he became concerned. He states she is at her mental baseline. He states she has not been drinking any fluids anything she is dehydrated. Patient has a history of vascular dementia (is intermittently minimally verbal), tobacco abuse with COPD, hypertension, diabetes, medication non-compliance. TRAVEL OUTSIDE OF THE [place] IN LAST 30 DAYS: No - Related Data Allergies/Adverse Reactions: No Known Allergies Allergy (Verified 05/07/17 22:22) Past Medical History - General Information source: Relative - - Social History Smoking Status: Current Every Day Smoker Frequency of alcohol use: None Drug Abuse: None Lives with: Spouse/Significant other Family History: Reviewed & Not Pertinent - Past Medical History Cardiac Medical History: Reports: Hx Hypercholesterolemia, Hx Hypertension Pulmonary Medical History: Reports: Hx Asthma, Hx COPD Neurological Medical History: Reports: Hx Cerebrovascular Accident Endocrine Medical History: Reports: Hx Diabetes Mellitus Type 2 Renal/ Medical History: Reports: Hx Renal Insufficiency. Denies: Hx Peritoneal Dialysis GI Medical History: Reports: Hx Gastroesophageal Reflux Disease Musculoskeltal Medical History: Reports Hx Arthritis - Degenerative Psychiatric Medical History: Reports: Hx Dementia - Vascular dementia Denies: Hx Depression - Immunizations Hx Diphtheria, Pertussis, Tetanus Vaccination: Yes Hx Pneumococcal Vaccination: 06/04/12 Review of Systems - Review of Systems Constitutional: See HPI EENT: No symptoms reported Cardiovascular: No symptoms reported Respiratory: No symptoms reported Gastrointestinal: No symptoms reported Genitourinary: No symptoms reported Female Genitourinary: No symptoms reported Musculoskeletal: See HPI Skin: No symptoms reported Hematologic/Lymphatic: No symptoms reported Neurological/Psychological: No symptoms reported Physical Exam - Vital signs Vitals: Resp BP 18 81/54 L 05/07/17 21:10 05/07/17 21:10 Interpretation: Normal - General General appearance: Other - patient arousable, minimally verbal, does not appear to be in any distress - HEENT Head: Normocephalic, Atraumatic Eyes: Normal Conjunctiva: Normal Extraocular movements intact: Yes Eyelashes: Normal Pupils: PERRL Nasal: Normal Mouth/Lips: Normal Mucous membranes: Normal Pharynx: Normal Neck: Normal - Respiratory Respiratory status: No respiratory distress. No: Respiratory distress, Labored , Tachypnea Chest status: Nontender Breath sounds: Decreased air movement, Wheezing - scattered wheezes and coarse breath sounds; no rales Chest palpation: Normal - Cardiovascular Rhythm: Regular, Tachycardia Heart sounds: Normal auscultation, S1 appreciated, S2 appreciated Murmur: No - Abdominal Inspection: Normal Distension: No distension Bowel sounds: Normal Tenderness: Nontender. No: Tender, Guarding - Back Back: Normal, Nontender. No: Tender - Extremities General lower extremity: Edema - LLE edema noted (2+ pitting, mainly distal and proximal tibial); normal RLE. 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 Given 1.5 L of normal saline. Patient reportedly at her mental baseline. She only responds yes or no and only intermittently. She appears to be confused but does state this is baseline. No obvious strength deficits. Soft abdomen. Decreased breath sounds with some scattered wheezes, given DuoNeb. Intermittently congested cough. Chest x-ray unremarkable. CBC unremarkable other than mild normocytic anemia. Chemistry showing acute renal failure with creatinine of 3.18, bicarbonate is also low at 17, venous blood gas is normal. Blood pressure has responded and has now normalized. Urinalysis significantly improved from a couple of days ago. She was given Levaquin before. Lactic acid is not elevated. Patient has lower extremity swelling, however she did have a normal Doppler couple of days ago. Concern because of tachycardia and hypotension of possible missed clot component however. Discussed with Dr. Ojeda. Ordered VQ scan, he also recommends patient be placed temporarily on heparin drip which can be stopped if VQ is normal. is gone on re-evaluation, had discussed part of patient's results with him, attempted to discuss with patient, when asked if she understands after discussing details and admission she did state "yes". Vital signs remained stable with improved blood pressure and borderline tachycardia. Discussed with Dr. Lala. Patient will be admitted to telemetry. - Vital Signs Vital signs: Temp Pulse Resp BP Pulse Ox 97.7 F 20 108/50 L 100 05/07/17 22:22 05/08/17 02:00 05/08/17 01:46 05/08/17 02:00 - Laboratory Result Diagrams: 05/07/17 22:45 05/07/17 22:45 Laboratory results interpreted by me: 05/07/17 05/07/17 05/07/17 21:23 22:45 22:45 RBC 3.19 L Hgb 10.3 L Hct 30.2 L RDW 19.5 H Potassium 3.5 L Chloride 109 H Carbon Dioxide 19 L BUN 22 H Creatinine 3.18 H Est GFR ( Amer) 18 L Est GFR (Non-Af Amer) 15 L Glucose 67 L Direct Bilirubin 0.6 H Creatine Kinase 153 H Total Protein 5.4 L Albumin 3.1 L Urine Urobilinogen 2.0 H Ur Leukocyte Esterase SMALL H Discharge - Discharge Clinical Impression: Tachycardia, Swelling of left lower extremity Hypotension Qualifiers: Hypotension type: unspecified hypotension type Qualified Code(s): I95.9 - Hypotension, unspecified Acute renal failure Qualifiers: Acute renal failure type: unspecified Qualified Code(s): N17.9 - Acute kidney failure, unspecified Condition: Fair Disposition: ADMITTED INPATIENT Admitting Provider: Dai Unit Admitted: Telemetry
[2017-05-07] MEDS ORDERED: NORMAL SALINE 1000 ML 1,000 ML IV ONE (21:56)
[2017-05-07] MEDS ORDERED: IPRATROPIUM/ALBUTEROL 0.5-2.5 MG/3 ML AMPUL NEB ONE (21:58)
--- NOTE | 2017-05-07 22:30 | RADIOLOGY REPORT (SQ) ---
EXAM DESCRIPTION: CHEST SINGLE VIEW COMPLETED DATE/TIME: 05/07/2017 10:17 pm REASON FOR STUDY: weakness, hypoxia COMPARISON: CT chest 03/17/2017 EXAM PARAMETERS: NUMBER OF VIEWS: One view. TECHNIQUE: Single frontal radiographic view of the chest acquired. RADIATION DOSE: NA LIMITATIONS: None. FINDINGS: LUNGS AND PLEURA: No opacities, masses or pneumothorax. No pleural effusion. MEDIASTINUM AND HILAR STRUCTURES: No masses. Contour normal. HEART AND VASCULAR STRUCTURES: Heart normal in size. Normal vasculature. BONES: No acute findings. HARDWARE: None in the chest. OTHER: No other significant finding. IMPRESSION: NO ACUTE RADIOGRAPHIC FINDING IN THE CHEST. TECHNICAL DOCUMENTATION: JOB ID: [id number] [email or web address]- All Rights Reserved
[2017-05-07 22:42] LABS: APPEARANCE,URINE SLIGHTLY-CLOUDY; BILIRUBIN,URINE NEGATIVE (NEGATIVE); GLUCOSE, URINE NEGATIVE (NEGATIVE); KETONES,URINE NEGATIVE (NEGATIVE); LEUKOCYTE ESTERASE,URINE SMALL (NEGATIVE); NITRITE,URINE NEGATIVE (NEGATIVE); PROTEIN,URINE NEGATIVE (NEGATIVE); URINE SPECIFIC GRAVITY 1.008
[2017-05-07 22:50] LABS: HYALINE CASTS, URINE 0-1 /LPF
[2017-05-07 23:22] LABS: ABSOLUTE BASOPHILS # (AUTO) 0.1 10^3/uL (0.0-0.2); ABSOLUTE EOSINOPHILS # (AUTO) 0.1 10^3/uL (0.0-0.6); ABSOLUTE LYMPHOCYTES (AUTO) 2.9 10^3/uL (0.5-4.7); ABSOLUTE MONOCYTES (AUTO) 0.6 10^3/uL (0.1-1.4); ABSOLUTE NEUT (AUTO) 4.4 10^3/uL (1.7-8.2); BASOPHILS % (AUTO) 1.2 % (0-2); EOSINOPHILS % (AUTO) 1.2 % (0-6); HEMATOCRIT 30.2 % (36.0-47.0); HEMOGLOBIN 10.3 g/dL (12.0-15.5); HGB HCT DIFFERENCE 0.7; LYMPHOCYTES % (AUTO) 36.3 % (13-45); MEAN CORPUSCULAR HEMOGLOBIN 32.2 pg (27.0-33.4); MEAN CORPUSCULAR VOLUME 95 fl (80-97); RED BLOOD COUNT 3.19 10^6/uL (3.72-5.28); RED CELL DISTRIBUTION WIDTH 19.5 % (11.5-14.0); SEGMENTED NEUTROPHILS % (AUTO) 54.3 % (42-78); WHITE BLOOD COUNT 8.1 10^3/uL (4.0-10.5)
[2017-05-07 23:23] LABS: ALANINE AMINOTRANSFERASE 34 U/L (9-52); ALBUMIN 3.1 g/dL (3.5-5.0); ALKALINE PHOSPHATASE 57 U/L (38-126); ANION GAP 12 (5-19); ASPARTATE AMINO TRANSFERASE 17 U/L (14-36); BILIRUBIN,DIRECT 0.6 mg/dL (0.0-0.4); BILIRUBIN,TOTAL 0.6 mg/dL (0.2-1.3); BLOOD UREA NITROGEN 22 mg/dL (7-20); CALCIUM 8.5 mg/dL (8.4-10.2); CARBON DIOXIDE 19 mmol/L (22-30); CHLORIDE 109 mmol/L (98-107); CREATINE KINASE 153 U/L (30-135); CREATININE RESULT 3.18 mg/dL (0.52-1.25); GLUCOSE 67 mg/dL (75-110); POTASSIUM 3.5 mmol/L (3.6-5.0); SODIUM 140.4 mmol/L (137-145); TOTAL PROTEIN 5.4 g/dL (6.3-8.2)
[2017-05-07 23:36] LABS: CREATINE KINASE MB 0.39 ng/mL (<4.55)
[2017-05-07 23:40] LABS: TROPONIN I < 0.012 ng/mL
[2017-05-08 00:24] LABS: VENOUS BLOOD BASE EXCESS -3.7 mmol/L; VENOUS BLOOD HCO3 20.9 mmol/L (20-32); VENOUS BLOOD PCO2 35.5 mmHg (35-63); VENOUS BLOOD PH 7.39 (7.30-7.42)
[2017-05-08] MEDS ORDERED: NORMAL SALINE 1000 ML 500 ML IV ONE (00:46)
[2017-05-08] MEDS ORDERED: HEPARIN SOD (PORCINE) 1,000 UNIT/ML 10 ML VIAL IV ONE (01:42)
[2017-05-08] MEDS ORDERED: HEPARIN SODIUM,PORCINE/D5W 25,000 UNIT/250 ML RTUINJ IV PRN (01:42)
[2017-05-08 02:15] LABS: PROTHROMBIN TIME 15.1 SEC (11.4-15.4)
[2017-05-08 02:16] LABS: PARTIAL THROMBOPLASTIN TIME 31.6 SEC (23.5-35.8)
[2017-05-08] MEDS ORDERED: HEPARIN SOD (PORCINE) 1,000 UNIT/ML 10 ML VIAL IV PRN (04:43)
--- NOTE | 2017-05-08 04:51 | RADIOLOGY REPORT (SQ) ---
EXAM DESCRIPTION: NM LUNG PERFUSION SCAN COMPLETED DATE/TIME: 05/08/2017 4:31 am REASON FOR STUDY: tachycardia, LLE swelling COMPARISON: Chest x-ray 05/07/2017. RADIONUCLIDE AND DOSE: 5.27 millicuries TC-99m MAA The route of agent administration: Intravenous TECHNIQUE: Eight views of the lungs acquired following injection of MAA. LIMITATIONS: The patient was unable to keep her arms elevated for the duration of the exam. FINDINGS: PERFUSION: There are bilateral perfusion defects. IMPRESSION: Intermediate probability for pulmonary emboli. TECHNICAL DOCUMENTATION: JOB ID: [id number] [employer]- All Rights Reserved
--- NOTE | 2017-05-08 12:04 | RADIOLOGY REPORT (SQ) ---
EXAM DESCRIPTION: VENOUS UNILATERAL LOWER COMPLETED DATE/TIME: 05/08/2017 11:33 am REASON FOR STUDY: LLE swelling COMPARISON: 05/05/2017 TECHNIQUE: Dynamic and static goldberg scale and color images acquired of the left leg venous system. Se lected spectral images acquired with additional compression and augmentation maneuvers. The contralat eral common femoral vein and saphenofemoral junction were also imaged. Images stored on PACS. LIMITATIONS: None. FINDINGS: LEFT COMMON FEMORAL: Normal phasicity, compression and augmentation. No visualized echogenic material on g ray scale. No defects on color images. FEMORAL: Normal compression and augmentation. No visualized echogenic material on goldberg scale. No defe cts on color images. POPLITEAL: Normal compression, augmentation. No visualized echogenic material on goldberg scale. No defec ts on color images. CALF VESSELS: Normal compression, augmentation. No visualized echogenic material on goldberg scale. No de fects on color images. GSV and SSV: Normal compression, augmentation. No visualized echogenic material on goldberg scale. No def ects on color images. ANY DEEP VENOUS INSUFFICIENCY: Not evaluated. ANY EVIDENCE OF POPLITEAL CYST: No. OTHER: No other significant finding. RIGHT COMMON FEMORAL VEIN AND SAPHENOFEMORAL JUNCTION: Normal phasicity, compression and augmentation. No visualized echogenic material on goldberg scale. No de fects on color images. IMPRESSION: NO EVIDENCE OF DVT OR SVT IN THE LEFT LEG. TECHNICAL DOCUMENTATION: JOB ID: [id number] [employer]- All Rights Reserved
[2017-05-08] MEDS ORDERED: NORMAL SALINE 1000 ML 1,000 ML IV PRN ×2 (12:11→14:07)
[2017-05-08 12:13] LABS: PROTHROMBIN TIME 18.2 SEC (11.4-15.4)
[2017-05-08 12:21] LABS: ALANINE AMINOTRANSFERASE 29 U/L (9-52); ALKALINE PHOSPHATASE 59 U/L (38-126); AMYLASE 56 U/L (30-110); ASPARTATE AMINO TRANSFERASE 25 U/L (14-36); BILIRUBIN,DIRECT 0.4 mg/dL (0.0-0.4); BILIRUBIN,TOTAL 0.5 mg/dL (0.2-1.3); LIPASE 165.1 U/L (23-300); TOTAL PROTEIN 5.5 g/dL (6.3-8.2)
[2017-05-08 12:42] LABS: TROPONIN I < 0.012 ng/mL
[2017-05-08 12:52] LABS: PARTIAL THROMBOPLASTIN TIME > 235.0 SEC (23.5-35.8)
[2017-05-08 13:07] LABS: THYROID STIMULATING HORMONE 1.63 uIU/mL (0.47-4.68)
[2017-05-08] MEDS: HEPARIN SOD (PORCINE) 5,000 UNIT/ML 1 ML SYRINGE SUBCUT SCH ×2 (13:36→22:16)
[2017-05-08 14:46] LABS: APPEARANCE,URINE SLIGHTLY-CLOUDY; BILIRUBIN,URINE NEGATIVE (NEGATIVE); GLUCOSE, URINE NEGATIVE (NEGATIVE); KETONES,URINE NEGATIVE (NEGATIVE); LEUKOCYTE ESTERASE,URINE LARGE (NEGATIVE); NITRITE,URINE NEGATIVE (NEGATIVE); PROTEIN,URINE NEGATIVE (NEGATIVE); URINE SPECIFIC GRAVITY 1.008; UROBILINOGEN,URINE NEGATIVE mg/dL (<2.0)
[2017-05-08 15:06] LABS: URINE BARBITURATES SCREEN NEGATIVE; URINE METHADONE SCREEN NEGATIVE; URINE OPIATES LOW NEGATIVE; URINE PHENCYCLIDINE SCREEN NEGATIVE
[2017-05-08 17:05] LABS: ARTERIAL BLOOD BASE EXCESS -8.1 mmol/L
--- NOTE | 2017-05-08 17:46 | PDOC H&P ---
History of Present Illness Admission Date/PCP: 05/08/17 01:59 DANY BENAVIDES MD History of Present Illness: MICAH WOMACK is a 66 year old female, she has a history of chronic kidney disease stage III, vascular dementia, chronic obstructive pulmonary disease. She came to the emergency room for evaluation of nonspecific complaints, weakness, she was accompanied by the , he stated that patient is unable to stand and that she falling back onto the bed. He also stated that she has not been drinking any fluid and that she is dehydrated. In the emergency room she was evaluated she was found to have a low blood pressure and she was also tachycardic. The blood work that was done showed serum creatinine of 3.18, in the emergency room the ED providers for some reason suspected pulmonary embolism unfortunately CTA could not be done, VQ scan was ordered, PE was suspected because of bradycardia and left lower extremity swelling, the VQ scan was a poor study because only the perfusion scan was done, she has a history of COPD, this patient population tend to have a match ventilation/perfusion defect. The VQ scan was interpreted as intermediate probability for PE, based on these VQ scan interpretation the patient was started on IV heparin by the ED providers. The pretest probability for PE is extremely low in this patient the VQ scan study is incomplete essentially uninterpretable ABG was done on room air the PO2 was normal. She has metabolic acidosis with respiratory alkalosis based on the ABG, the pH was 7.37, bicarbonate 16 PCO2 28.5 the expected PCO2 for the degree of acidosis should be 30-34 but the measured PCO2 was 28.5 she also have profuse diarrhea, essentially loose stool negative for C. difficile toxin, a rectal tube was inserted because of the degree of loose stool was severe the last time she was discharged from the hospital the serum creatinine was 1.78, the serum creatinine on this admission is 3.18 suggesting acute kidney injury most likely prerenal she also have hypokalemia Past Medical History Cardiac Medical History: Reports: Hyperlipidema, Hypertension Pulmonary Medical History: Reports: Asthma, Chronic Obstructive Pulmonary Disease (COPD) Endocrine Medical History: Reports: Diabetes Mellitus Type 2 GI Medical History: Reports: Gastroesophageal Reflux Disease Musculoskeltal Medical History: Reports: Arthritis - Degenerative Psychiatric Medical History: Reports: Dementia - Vascular dementia Social History Lives with: Spouse/Significant other Smoking Status: Current Every Day Smoker Frequency of Alcohol Use: None Hx Recreational Drug Use: No Drugs: None Hx Prescription Drug Abuse: No - Advance Directive Resuscitation Status: Full Code Family History Family History: Reviewed & Not Pertinent Parental Family History Reviewed: Yes Children Family History Reviewed: Yes Sibling(s) Family History Reviewed.: Yes Medication/Allergy Home Medications: Atorvastatin Calcium [Lipitor 20 mg Tablet] 20 mg PO DAILY 05/08/17 Donepezil HCl [Aricept] 10 mg PO DAILY 05/08/17 Exenatide Microspheres [Bydureon Pen] 2 mg SQ Q7D 05/08/17 Levofloxacin [Levaquin 750 mg Tablet] 750 mg PO DAILY 05/08/17 Losartan/Hydrochlorothiazide [Losartan-Hctz 100-25 mg Tab] 1 dose PO DAILY 05/08 Metoclopramide HCl [Reglan 10 mg Tablet] 10 mg PO Q4HP PRN 05/08/17 Pioglitazone HCl [Actos 15 mg Tablet] 15 mg PO DAILY 05/08/17 Pramipexole Di-HCl [Mirapex] 0.125 mg PO Q12 05/08/17 Tiotropium Br/Olodaterol HCl [Stiolto Respimat Inhal [place]] 4 gm IH DAILY Allergies/Adverse Reactions: No Known Allergies Allergy (Verified 05/07/17 22:22) Review of Systems Eyes: ABSENT: visual disturbances Ears: ABSENT: hearing changes Cardiovascular: ABSENT: chest pain, dyspnea on exertion, edema, orthropnea, palpitations Respiratory: ABSENT: cough, hemoptysis Gastrointestinal: PRESENT: diarrhea Genitourinary: ABSENT: dysuria, hematuria Musculoskeletal: ABSENT: joint swelling Integumentary: ABSENT: rash, wounds Neurological: PRESENT: memory loss, paresthesias, weakness Psychiatric: ABSENT: anxiety, depression, homidical ideation, suicidal ideation Endocrine: ABSENT: cold intolerance, heat intolerance, menstrual abnormalities, polydipsia, polyuria Hematologic/Lymphatic: ABSENT: easy bleeding, easy bruising, lymphadenopathy Physical Exam Vital Signs: Temp Pulse Resp BP Pulse Ox 99.6 F 91 18 111/61 95 05/08/17 16:52 05/08/17 16:52 05/08/17 16:52 05/08/17 16:52 05/08/17 16:52 General appearance: PRESENT: mild distress Eye exam: PRESENT: PERRLA Mouth exam: PRESENT: dry mucosa Neck exam: PRESENT: full ROM Respiratory exam: PRESENT: clear to auscultation chris Cardiovascular exam: PRESENT: RRR, +S1, +S2 Vascular exam: PRESENT: normal capillary refill GI/Abdominal exam: PRESENT: normal bowel sounds, soft Rectal exam: PRESENT: deferred Neurological exam: PRESENT: alert, CN II-XII grossly intact. ABSENT: motor sensory deficit Psychiatric exam: PRESENT: appropriate affect Skin exam: PRESENT: dry Results Laboratory Results: 05/08/17 05/08/17 05/08/17 03:23 11:40 11:52 Carbonic Acid Cancelled HCO3/H2CO3 Ratio Cancelled ABG pH Cancelled ABG pCO2 Cancelled ABG pO2 Cancelled ABG HCO3 Cancelled ABG O2 Saturation Cancelled ABG Base Excess Cancelled FiO2 Cancelled Total Bilirubin 0.5 AST 25 ALT 29 Alkaline Phosphatase 59 Ammonia Total Protein 5.5 L Albumin 3.0 L Amylase 56 Lipase 165.1 TSH Free T4 Urine Color Urine Appearance Urine pH Ur Specific Blue [place] Urine Protein Urine Glucose (UA) Urine Ketones Urine Blood Urine Nitrite Ur Leukocyte Esterase Ur Squamous Epith Cells Stool Occult Blood NEGATIVE 05/08/17 05/08/17 05/08/17 11:52 11:52 14:15 Carbonic Acid HCO3/H2CO3 Ratio ABG pH ABG pCO2 ABG pO2 ABG HCO3 ABG O2 Saturation ABG Base Excess FiO2 Total Bilirubin AST ALT Alkaline Phosphatase Ammonia < 8.7 L Total Protein Albumin Amylase Lipase TSH 1.63 Free T4 1.79 Urine Color YELLOW Urine Appearance SLIGHTLY-CLOUDY Urine pH 5.0 Ur Specific [place] 1.008 Urine Protein NEGATIVE Urine Glucose (UA) NEGATIVE Urine Ketones NEGATIVE Urine Blood SMALL H Urine Nitrite NEGATIVE Ur Leukocyte Esterase LARGE H Ur Squamous Epith Cells FEW Stool Occult Blood 05/08/17 05/08/17 15:33 16:48 Carbonic Acid Cancelled 0.86 L HCO3/H2CO3 Ratio Cancelled 18:1 ABG pH Cancelled 7.37 ABG pCO2 Cancelled 28.5 L ABG pO2 Cancelled 110.7 H ABG HCO3 Cancelled 16.0 L ABG O2 Saturation Cancelled 98.0 ABG Base Excess Cancelled -8.1 FiO2 Cancelled ROOM AIR Total Bilirubin AST ALT Alkaline Phosphatase Ammonia Total Protein Albumin Amylase Lipase TSH Free T4 Urine Color Urine Appearance Urine pH Ur Specific [place] Urine Protein Urine Glucose (UA) Urine Ketones Urine Blood Urine Nitrite Ur Leukocyte Esterase Ur Squamous Epith Cells Stool Occult Blood 05/08/17 05/08/17 05/08/17 11:52 11:52 11:52 Creatine Kinase 257 H Troponin I < 0.012 NT-Pro-B Natriuret Pep Cancelled 828 Impressions: Chest X-Ray 05/07/17 21:52 IMPRESSION: NO ACUTE RADIOGRAPHIC FINDING IN THE CHEST. Lung Scan-VQ NM 05/08/17 01:13 IMPRESSION: Intermediate probability for pulmonary emboli. Venous Doppler Study 05/08/17 04:56 IMPRESSION: NO EVIDENCE OF DVT OR SVT IN THE LEFT LEG. Assessment & Plan - Diagnosis (1) Hypovolemia Is this a current diagnosis for this admission?: Yes Plan: She has hypovolemia due to severe fluid loss from diarrhea, she will be treated with IV fluid to restore volume (2) Hypotension Qualifiers: Hypotension type: orthostatic hypotension Qualified Code(s): I95.1 - Orthostatic hypotension Is this a current diagnosis for this admission?: Yes Plan: Hypotension is secondary to volume loss from diarrhea (3) Metabolic acidosis with respiratory alkalosis Is this a current diagnosis for this admission?: Yes Plan: She has mixed acid-base disorder, metabolic acidosis with respiratory alkalosis (4) Diarrhea Qualifiers: Diarrhea type: unspecified type Qualified Code(s): R19.7 - Diarrhea, unspecified Is this a current diagnosis for this admission?: Yes Plan: The etiology of the diarrhea is not clear, there is acute diarrhea, probably viral or other causes (5) Vascular dementia Qualifiers: Dementia behavioral disturbance: without behavioral disturbance Qualified Code(s): F01.50 - Vascular dementia without behavioral disturbance Is this a current diagnosis for this admission?: Yes (6) Acute kidney injury Is this a current diagnosis for this admission?: Yes Plan: This is most likely prerenal from loss of volume due to diarrhea (7) COPD (chronic obstructive pulmonary disease) Qualifiers: COPD type: unspecified COPD Qualified Code(s): J44.9 - Chronic obstructive pulmonary disease, unspecified
[2017-05-08] MEDS: POTASSI CL 40 MEQ/NS 1L 1,000 ML IV PRN (18:36)
--- NOTE | 2017-05-08 20:58 | EKG REPORT ---
SEVERITY:- BORDERLINE ECG - SINUS RHYTHM AND PACS. BORDERLINE T ABNORMALITIES, DIFFUSE LEADS : Confirmed by: Simba Stokes MD 08-May-2017 14:24:12
[2017-05-08] MEDS ORDERED: HYDROCHLOROTHIAZIDE PO SCH (21:30)
[2017-05-08] MEDS ORDERED: [UNRECOGNIZED DRUG - OTHER] PO SCH (21:30)
[2017-05-08] MEDS ORDERED: (PENDING PHARMACY ID) (Tiotropium Br/Olodaterol Hcl [Stiolto Respimat Inhal Spray] 4 GM) IH SCH (21:30)
[2017-05-08] MEDS ORDERED: (PENDING PHARMACY ID) (Exenatide Microspheres [Bydureon Pen] 2 MG) SQ SCH (21:30)
[2017-05-08] MEDS ORDERED: (PENDING PHARMACY ID) (Donepezil Hcl [Aricept] 10 MG) PO SCH (21:30)
[2017-05-08] MEDS ORDERED: LOSARTAN PO SCH (21:30)
[2017-05-08] MEDS ORDERED: DONEPEZIL HCL 5 MG TABLET PO ONE (21:45)
[2017-05-08] MEDS ORDERED: HYDROCHLOROTHIAZIDE 25 MG TABLET PO ONE (21:45)
[2017-05-08] MEDS ORDERED: LOSARTAN POTASSIUM 50 MG TABLET PO ONE (21:45)
[2017-05-08] MEDS ORDERED: PIOGLITAZONE HCL 15 MG TABLET PO ONE (21:45)
[2017-05-08] MEDS ORDERED: (PENDING PHARMACY ID) (Pramipexole Di-Hcl [Mirapex] 0.125 MG) PO SCH (22:00)
[2017-05-08] MEDS: ATORVASTATIN CALCIUM 20 MG TABLET PO SCH (22:15)
[2017-05-08] MEDS ORDERED: PRAMIPEXOLE DI-HCL 0.25 MG TABLET ONE (22:33)
[2017-05-08] MEDS: PRAMIPEXOLE DI-HCL 0.25 MG TABLET PO SCH (22:53)
[2017-05-09] MEDS: HEPARIN SOD (PORCINE) 5,000 UNIT/ML 1 ML SYRINGE SUBCUT SCH ×3 (06:04→21:56)
[2017-05-09] MEDS: POTASSI CL 40 MEQ/NS 1L 1,000 ML IV PRN (06:05)
[2017-05-09 08:48] LABS: ABSOLUTE BASOPHILS # (AUTO) 0.1 10^3/uL (0.0-0.2); ABSOLUTE EOSINOPHILS # (AUTO) 0.1 10^3/uL (0.0-0.6); ABSOLUTE LYMPHOCYTES (AUTO) 2.6 10^3/uL (0.5-4.7); ABSOLUTE MONOCYTES (AUTO) 0.4 10^3/uL (0.1-1.4); ABSOLUTE NEUT (AUTO) 4.2 10^3/uL (1.7-8.2); BASOPHILS % (AUTO) 1.4 % (0-2); EOSINOPHILS % (AUTO) 1.7 % (0-6); HEMATOCRIT 31.7 % (36.0-47.0); HEMOGLOBIN 10.6 g/dL (12.0-15.5); HGB HCT DIFFERENCE 0.1; LYMPHOCYTES % (AUTO) 34.8 % (13-45); MEAN CORPUSCULAR HEMOGLOBIN 32.3 pg (27.0-33.4); MEAN CORPUSCULAR HGB CONC 33.6 g/dL (32.0-36.0); MEAN CORPUSCULAR VOLUME 96 fl (80-97); MONOCYTES % (AUTO) 5.9 % (3-13); RED CELL DISTRIBUTION WIDTH 19.7 % (11.5-14.0); SEGMENTED NEUTROPHILS % (AUTO) 56.2 % (42-78); WHITE BLOOD COUNT 7.5 10^3/uL (4.0-10.5)
[2017-05-09 09:03] LABS: ALANINE AMINOTRANSFERASE 29 U/L (9-52); ALBUMIN 2.9 g/dL (3.5-5.0); ALKALINE PHOSPHATASE 52 U/L (38-126); ANION GAP 12 (5-19); ASPARTATE AMINO TRANSFERASE 25 U/L (14-36); BILIRUBIN,DIRECT 0.4 mg/dL (0.0-0.4); BILIRUBIN,TOTAL 0.6 mg/dL (0.2-1.3); BLOOD UREA NITROGEN 12 mg/dL (7-20); CALCIUM 8.1 mg/dL (8.4-10.2); CARBON DIOXIDE 13 mmol/L (22-30); CHLORIDE 121 mmol/L (98-107); CREATININE RESULT 1.96 mg/dL (0.52-1.25); GLUCOSE 66 mg/dL (75-110); POTASSIUM 3.9 mmol/L (3.6-5.0); SODIUM 145.7 mmol/L (137-145); TOTAL PROTEIN 5.4 g/dL (6.3-8.2)
--- NOTE | 2017-05-09 09:47 | EKG REPORT ---
SEVERITY:- ABNORMAL ECG - SINUS RHYTHM NONSPECIFIC T ABNORMALITIES, INFERIOR LEADS : Confirmed by: Simba Stokes MD 09-May-2017 09:46:35
[2017-05-09] MEDS: PRAMIPEXOLE DI-HCL 0.25 MG TABLET PO SCH ×2 (10:21→21:56)
[2017-05-09] MEDS: HYDROCHLOROTHIAZIDE 25 MG TABLET PO SCH (10:21)
[2017-05-09] MEDS: PIOGLITAZONE HCL 15 MG TABLET PO SCH (10:22)
[2017-05-09] MEDS: LOSARTAN POTASSIUM 50 MG TABLET PO SCH (10:22)
[2017-05-09] MEDS: DONEPEZIL HCL 5 MG TABLET PO SCH (10:22)
--- NOTE | 2017-05-09 13:11 | PDOC PROGRESS REPORT ---
Subjective Progress Note for:: 05/09/17 Subjective:: Patient continues to have profuse diarrhea, the nurses stated that there was undigested food in the stool, this raises the question of steatorrhea, 72 hours fecal fat content will be ordered to help rule in or rule out steatorrhea. She may also need a colonoscopy. Reason For Visit: CONFUSION H/O VASCULAR DEMENTIA ACUTE KIDNEY Physical Exam Vital Signs: Temp Pulse Resp BP Pulse Ox 98.4 F 88 18 120/69 95 05/09/17 08:54 05/09/17 08:54 05/09/17 08:54 05/09/17 08:54 05/09/17 08:54 Intake & Output 05/08/17 05/09/17 05/10/17 06:59 06:59 06:59 Intake Total 1850 Balance 1850 Weight 70 kg General appearance: PRESENT: no acute distress Eye exam: PRESENT: PERRLA Respiratory exam: PRESENT: clear to auscultation chris Cardiovascular exam: PRESENT: +S1, +S2 GI/Abdominal exam: PRESENT: soft Neurological exam: PRESENT: alert Results Laboratory Results: 05/09/17 08:22 05/09/17 08:14 05/08/17 05/08/17 05/08/17 11:52 14:15 15:33 WBC RBC Hgb Hct MCV MCH MCHC RDW Plt Count Seg Neutrophils % Lymphocytes % Monocytes % Eosinophils % Basophils % Absolute Neutrophils Absolute Lymphocytes Absolute Monocytes Absolute Eosinophils Absolute Basophils Carbonic Acid Cancelled HCO3/H2CO3 Ratio Cancelled ABG pH Cancelled ABG pCO2 Cancelled ABG pO2 Cancelled ABG HCO3 Cancelled ABG O2 Saturation Cancelled ABG Base Excess Cancelled FiO2 Cancelled Sodium Potassium Chloride Carbon Dioxide Anion Gap BUN Creatinine Est GFR ( Amer) Est GFR (Non-Af Amer) Glucose Calcium Total Bilirubin AST ALT Alkaline Phosphatase Total Protein Albumin TSH 1.63 Free T4 1.79 Urine Color YELLOW Urine Appearance SLIGHTLY-CLOUDY Urine pH 5.0 Ur Specific [place] 1.008 Urine Protein NEGATIVE Urine Glucose (UA) NEGATIVE Urine Ketones NEGATIVE Urine Blood SMALL H Urine Nitrite NEGATIVE Ur Leukocyte Esterase LARGE H Ur Squamous Epith Cells FEW Stool Occult Blood Stool for White Cells 05/08/17 05/09/17 05/09/17 16:48 06:46 06:46 WBC RBC Hgb Hct MCV MCH MCHC RDW Plt Count Seg Neutrophils % Lymphocytes % Monocytes % Eosinophils % Basophils % Absolute Neutrophils Absolute Lymphocytes Absolute Monocytes Absolute Eosinophils Absolute Basophils Carbonic Acid 0.86 L HCO3/H2CO3 Ratio 18:1 ABG pH 7.37 ABG pCO2 28.5 L ABG pO2 110.7 H ABG HCO3 16.0 L ABG O2 Saturation 98.0 ABG Base Excess -8.1 FiO2 ROOM AIR Sodium Potassium Chloride Carbon Dioxide Anion Gap BUN Creatinine Est GFR ( Amer) Est GFR (Non-Af Amer) Glucose Calcium Total Bilirubin AST ALT Alkaline Phosphatase Total Protein Albumin TSH Free T4 Urine Color Urine Appearance Urine pH Ur Specific [place] Urine Protein Urine Glucose (UA) Urine Ketones Urine Blood Urine Nitrite Ur Leukocyte Esterase Ur Squamous Epith Cells Stool Occult Blood POSITIVE Stool for White Cells NO WBCs SEEN 05/09/17 05/09/17 08:14 08:22 WBC 7.5 RBC 3.30 L Hgb 10.6 L Hct 31.7 L MCV 96 MCH 32.3 MCHC 33.6 RDW 19.7 H Plt Count 194 Seg Neutrophils % 56.2 Lymphocytes % 34.8 Monocytes % 5.9 Eosinophils % 1.7 Basophils % 1.4 Absolute Neutrophils 4.2 Absolute Lymphocytes 2.6 Absolute Monocytes 0.4 Absolute Eosinophils 0.1 Absolute Basophils 0.1 Carbonic Acid HCO3/H2CO3 Ratio ABG pH ABG pCO2 ABG pO2 ABG HCO3 ABG O2 Saturation ABG Base Excess FiO2 Sodium 145.7 H Potassium 3.9 Chloride 121 H Carbon Dioxide 13 L Anion Gap 12 BUN 12 Creatinine 1.96 H Est GFR ( Amer) 31 L Est GFR (Non-Af Amer) 26 L Glucose 66 L Calcium 8.1 L Total Bilirubin 0.6 AST 25 ALT 29 Alkaline Phosphatase 52 Total Protein 5.4 L Albumin 2.9 L TSH Free T4 Urine Color Urine Appearance Urine pH Ur Specific [place] Urine Protein Urine Glucose (UA) Urine Ketones Urine Blood Urine Nitrite Ur Leukocyte Esterase Ur Squamous Epith Cells Stool Occult Blood Stool for White Cells 05/08/17 05/08/17 05/08/17 11:52 11:52 11:52 Creatine Kinase 257 H Troponin I < 0.012 NT-Pro-B Natriuret Pep Cancelled 828 05/08/17 05/08/17 05/08/17 17:20 17:40 23:20 Creatine Kinase 276 H 237 H Troponin I < 0.012 NT-Pro-B Natriuret Pep 05/08/17 23:20 Creatine Kinase Troponin I < 0.012 NT-Pro-B Natriuret Pep Impressions: Chest X-Ray 05/07/17 21:52 IMPRESSION: NO ACUTE RADIOGRAPHIC FINDING IN THE CHEST. Lung Scan-VQ NM 05/08/17 01:13 IMPRESSION: Intermediate probability for pulmonary emboli. Venous Doppler Study 05/08/17 04:56 IMPRESSION: NO EVIDENCE OF DVT OR SVT IN THE LEFT LEG. Assessment & Plan - Diagnosis (1) Hypovolemia Is this a current diagnosis for this admission?: Yes (2) Hypotension Qualifiers: Hypotension type: orthostatic hypotension Qualified Code(s): I95.1 - Orthostatic hypotension Is this a current diagnosis for this admission?: Yes (3) Metabolic acidosis with respiratory alkalosis Is this a current diagnosis for this admission?: Yes (4) Diarrhea Qualifiers: Diarrhea type: unspecified type Qualified Code(s): R19.7 - Diarrhea, unspecified Is this a current diagnosis for this admission?: Yes (5) Vascular dementia Qualifiers: Dementia behavioral disturbance: without behavioral disturbance Qualified Code(s): F01.50 - Vascular dementia without behavioral disturbance Is this a current diagnosis for this admission?: Yes (6) Acute kidney injury Is this a current diagnosis for this admission?: Yes (7) COPD (chronic obstructive pulmonary disease) Qualifiers: COPD type: unspecified COPD Qualified Code(s): J44.9 - Chronic obstructive pulmonary disease, unspecified - Plan Summary Plan Summary: She will continue IV fluid, there is improvement in the blood pressure on the kidney function suggesting that loss of volume was etiology of the hypotension and acute kidney injury, 72 hours fecal fat content to be assay to determine if she has steatorrhea which may be due to pancreas or small intestinal disease
[2017-05-09] MEDS: ATORVASTATIN CALCIUM 20 MG TABLET PO SCH (21:56)
[2017-05-10] MEDS: POTASSI CL 40 MEQ/NS 1L 1,000 ML IV PRN ×2 (02:40→13:07)
[2017-05-10] MEDS: HEPARIN SOD (PORCINE) 5,000 UNIT/ML 1 ML SYRINGE SUBCUT SCH ×3 (05:49→21:57)
[2017-05-10 09:47] LABS: ALANINE AMINOTRANSFERASE 26 U/L (9-52); ALBUMIN 3.3 g/dL (3.5-5.0); ALKALINE PHOSPHATASE 67 U/L (38-126); ANION GAP 13 (5-19); ASPARTATE AMINO TRANSFERASE 21 U/L (14-36); BILIRUBIN,DIRECT 0.4 mg/dL (0.0-0.4); BILIRUBIN,TOTAL 0.4 mg/dL (0.2-1.3); BLOOD UREA NITROGEN 7 mg/dL (7-20); CALCIUM 8.3 mg/dL (8.4-10.2); CARBON DIOXIDE 14 mmol/L (22-30); CHLORIDE 122 mmol/L (98-107); CREATININE RESULT 1.61 mg/dL (0.52-1.25); GLUCOSE 57 mg/dL (75-110); POTASSIUM 4.7 mmol/L (3.6-5.0); TOTAL PROTEIN 6.1 g/dL (6.3-8.2)
[2017-05-10] MEDS: DONEPEZIL HCL 5 MG TABLET PO SCH (10:16)
[2017-05-10] MEDS: PIOGLITAZONE HCL 15 MG TABLET PO SCH (10:17)
[2017-05-10] MEDS: LOSARTAN POTASSIUM 50 MG TABLET PO SCH (10:17)
[2017-05-10] MEDS: HYDROCHLOROTHIAZIDE 25 MG TABLET PO SCH (10:17)
[2017-05-10] MEDS: PRAMIPEXOLE DI-HCL 0.25 MG TABLET PO SCH ×2 (10:18→21:57)
[2017-05-10 11:49] LABS: HEMATOCRIT 37.5 % (36.0-47.0); HEMOGLOBIN 12.1 g/dL (12.0-15.5); HGB HCT DIFFERENCE -1.2; MEAN CORPUSCULAR HEMOGLOBIN 31.4 pg (27.0-33.4); MEAN CORPUSCULAR HGB CONC 32.2 g/dL (32.0-36.0); MEAN CORPUSCULAR VOLUME 97 fl (80-97); RED BLOOD COUNT 3.85 10^6/uL (3.72-5.28); WHITE BLOOD COUNT 12.8 10^3/uL (4.0-10.5)
[2017-05-10 12:17] LABS: BASOPHILS % (MANUAL) 0 % (0-2); EOSINOPHILS % (MANUAL) 0 % (0-6); LYMPHOCYTES % (MANUAL) 31 % (13-45); TOTAL CELLS COUNTED 100
[2017-05-10 12:20] LABS: ANISOCYTOSIS 2+; BURR CELLS 1+; PLATELET CLUMPS PRESENT; POIKILOCYTOSIS 1+; TOXIC GRANULATION SLIGHT
--- NOTE | 2017-05-10 20:54 | PDOC PROGRESS REPORT ---
Subjective Progress Note for:: 05/10/17 Subjective:: Patient's overall cognition is poor, she continues to have diarrhea, Reason For Visit: CONFUSION H/O VASCULAR DEMENTIA ACUTE KIDNEY Physical Exam Vital Signs: Temp Pulse Resp BP Pulse Ox 98.9 F 101 H 20 114/38 L 94 05/10/17 16:46 05/10/17 14:00 05/10/17 13:02 05/10/17 16:46 05/10/17 13:02 Intake & Output 05/09/17 05/10/17 05/11/17 06:59 06:59 06:59 Intake Total 1850 3288 355 Balance 1850 3288 355 Weight 70 kg 76.1 kg 76.1 kg General appearance: PRESENT: no acute distress Eye exam: PRESENT: PERRLA Respiratory exam: PRESENT: clear to auscultation chris Cardiovascular exam: PRESENT: +S1, +S2 GI/Abdominal exam: PRESENT: soft Neurological exam: PRESENT: altered Results Laboratory Results: 05/10/17 11:37 05/10/17 09:10 05/10/17 05/10/17 05/10/17 09:10 09:10 10:41 WBC Cancelled Cancelled RBC Cancelled Cancelled Hgb Cancelled Cancelled Hct Cancelled Cancelled MCV Cancelled Cancelled MCH Cancelled Cancelled MCHC Cancelled Cancelled RDW Cancelled Cancelled Plt Count Cancelled Cancelled Seg Neutrophils % Cancelled Cancelled Lymphocytes % Cancelled Cancelled Monocytes % Cancelled Cancelled Eosinophils % Cancelled Cancelled Basophils % Cancelled Cancelled Absolute Neutrophils Cancelled Cancelled Absolute Lymphocytes Cancelled Cancelled Absolute Monocytes Cancelled Cancelled Absolute Eosinophils Cancelled Cancelled Absolute Basophils Cancelled Cancelled Sodium 149.0 H Potassium 4.7 Chloride 122 H Carbon Dioxide 14 L Anion Gap 13 BUN 7 Creatinine 1.61 H Est GFR ( Amer) 39 L Est GFR (Non-Af Amer) 32 L Glucose 57 L Calcium 8.3 L Total Bilirubin 0.4 AST 21 ALT 26 Alkaline Phosphatase 67 Total Protein 6.1 L Albumin 3.3 L 05/10/17 11:37 WBC 12.8 H RBC 3.85 Hgb 12.1 Hct 37.5 MCV 97 MCH 31.4 MCHC 32.2 RDW 20.0 H Plt Count 178 Seg Neutrophils % Not Reportable Lymphocytes % Not Reportable Monocytes % Not Reportable Eosinophils % Not Reportable Basophils % Not Reportable Absolute Neutrophils Not Reportable Absolute Lymphocytes Not Reportable Absolute Monocytes Not Reportable Absolute Eosinophils Not Reportable Absolute Basophils Not Reportable Sodium Potassium Chloride Carbon Dioxide Anion Gap BUN Creatinine Est GFR ( Amer) Est GFR (Non-Af Amer) Glucose Calcium Total Bilirubin AST ALT Alkaline Phosphatase Total Protein Albumin 05/08/17 05/08/17 05/08/17 11:52 11:52 11:52 Creatine Kinase 257 H Troponin I < 0.012 NT-Pro-B Natriuret Pep Cancelled 828 05/08/17 05/08/17 05/08/17 17:20 17:40 23:20 Creatine Kinase 276 H 237 H Troponin I < 0.012 NT-Pro-B Natriuret Pep 05/08/17 23:20 Creatine Kinase Troponin I < 0.012 NT-Pro-B Natriuret Pep Impressions: Chest X-Ray 05/07/17 21:52 IMPRESSION: NO ACUTE RADIOGRAPHIC FINDING IN THE CHEST. Lung Scan-VQ NM 05/08/17 01:13 IMPRESSION: Intermediate probability for pulmonary emboli. Venous Doppler Study 05/08/17 04:56 IMPRESSION: NO EVIDENCE OF DVT OR SVT IN THE LEFT LEG. Assessment & Plan - Diagnosis (1) Hypovolemia Is this a current diagnosis for this admission?: Yes (2) Hypotension Qualifiers: Hypotension type: orthostatic hypotension Qualified Code(s): I95.1 - Orthostatic hypotension Is this a current diagnosis for this admission?: Yes (3) Metabolic acidosis with respiratory alkalosis Is this a current diagnosis for this admission?: Yes (4) Diarrhea Qualifiers: Diarrhea type: unspecified type Qualified Code(s): R19.7 - Diarrhea, unspecified Is this a current diagnosis for this admission?: Yes (5) Vascular dementia Qualifiers: Dementia behavioral disturbance: without behavioral disturbance Qualified Code(s): F01.50 - Vascular dementia without behavioral disturbance Is this a current diagnosis for this admission?: Yes (6) Acute kidney injury Is this a current diagnosis for this admission?: Yes (7) COPD (chronic obstructive pulmonary disease) Qualifiers: COPD type: unspecified COPD Qualified Code(s): J44.9 - Chronic obstructive pulmonary disease, unspecified (8) Hypernatremia Is this a current diagnosis for this admission?: Yes - Plan Summary Plan Summary: She has slight hypernatremia, she continues to lose volume due to diarrhea, we will change IV fluid to D5 normal saline
[2017-05-10] MEDS: ATORVASTATIN CALCIUM 20 MG TABLET PO SCH (21:57)
[2017-05-10] MEDS: POTASSI CL 20 MEQ/D5NS 1L 20 MEQ/1,000 ML RTUINJ IV PRN (21:57)
[2017-05-11] MEDS: HEPARIN SOD (PORCINE) 5,000 UNIT/ML 1 ML SYRINGE SUBCUT SCH ×3 (05:27→22:27)
[2017-05-11] MEDS: DONEPEZIL HCL 5 MG TABLET PO SCH (10:44)
[2017-05-11] MEDS: PIOGLITAZONE HCL 15 MG TABLET PO SCH (10:44)
[2017-05-11] MEDS: PRAMIPEXOLE DI-HCL 0.25 MG TABLET PO SCH ×2 (10:45→22:28)
[2017-05-11] MEDS: LOSARTAN POTASSIUM 50 MG TABLET PO SCH (10:45)
[2017-05-11] MEDS: POTASSI CL 20 MEQ/D5NS 1L 20 MEQ/1,000 ML RTUINJ IV PRN (11:05)
[2017-05-11 13:41] LABS: HEMATOCRIT 34.6 % (36.0-47.0); HEMOGLOBIN 11.4 g/dL (12.0-15.5); HGB HCT DIFFERENCE -0.4; MEAN CORPUSCULAR HEMOGLOBIN 31.6 pg (27.0-33.4); MEAN CORPUSCULAR HGB CONC 32.9 g/dL (32.0-36.0); MEAN CORPUSCULAR VOLUME 96 fl (80-97); WHITE BLOOD COUNT 8.1 10^3/uL (4.0-10.5)
[2017-05-11 13:51] LABS: ALANINE AMINOTRANSFERASE 30 U/L (9-52); ALBUMIN 2.8 g/dL (3.5-5.0); ALKALINE PHOSPHATASE 48 U/L (38-126); ANION GAP 10 (5-19); ASPARTATE AMINO TRANSFERASE 17 U/L (14-36); BILIRUBIN,DIRECT 0.4 mg/dL (0.0-0.4); BILIRUBIN,TOTAL 0.5 mg/dL (0.2-1.3); BLOOD UREA NITROGEN 7 mg/dL (7-20); CALCIUM 8.5 mg/dL (8.4-10.2); CARBON DIOXIDE 12 mmol/L (22-30); CHLORIDE 122 mmol/L (98-107); CREATININE RESULT 1.37 mg/dL (0.52-1.25); GLUCOSE 102 mg/dL (75-110); POTASSIUM 5.1 mmol/L (3.6-5.0); SODIUM 144.2 mmol/L (137-145); TOTAL PROTEIN 5.3 g/dL (6.3-8.2)
[2017-05-11 14:28] LABS: ABSOLUTE EOSINOPHILS# (MANUAL) 0.1 10^3/uL (0.0-0.6); BASOPHILS % (MANUAL) 0 % (0-2); EOSINOPHILS % (MANUAL) 1 % (0-6); LYMPHOCYTES % (MANUAL) 25 % (13-45); TOTAL CELLS COUNTED 100
[2017-05-11 14:29] LABS: ANISOCYTOSIS 2+; BURR CELLS 2+; OVALOCYTES 1+; POIKILOCYTOSIS 2+; SCHISTOCYTES 1+; TOXIC GRANULATION 1+
--- NOTE | 2017-05-11 22:13 | PDOC PROGRESS REPORT ---
Subjective Progress Note for:: 05/11/17 Subjective:: I had a long discussion with patient spouse about patient's condition today, she is improving, she is able to make eye contact unlike previously Reason For Visit: CONFUSION H/O VASCULAR DEMENTIA ACUTE KIDNEY Physical Exam Vital Signs: Temp Pulse Resp BP Pulse Ox 98.4 F 101 H 24 H 121/54 L 98 05/11/17 19:55 05/11/17 15:21 05/11/17 19:55 05/11/17 19:55 05/11/17 15:21 Intake & Output 05/10/17 05/11/17 05/12/17 06:59 06:59 06:59 Intake Total 3288 2855 1370 Balance 3288 2855 1370 Weight 76.1 kg 76.1 kg General appearance: PRESENT: no acute distress Eye exam: PRESENT: PERRLA Respiratory exam: PRESENT: clear to auscultation chris Cardiovascular exam: PRESENT: +S1, +S2 GI/Abdominal exam: PRESENT: soft Neurological exam: PRESENT: alert Results Laboratory Results: 05/11/17 13:24 05/11/17 13:24 05/11/17 05/11/17 13:24 13:24 WBC 8.1 RBC 3.60 L Hgb 11.4 L Hct 34.6 L MCV 96 MCH 31.6 MCHC 32.9 RDW 20.0 H Plt Count 213 Seg Neutrophils % Not Reportable Lymphocytes % Not Reportable Monocytes % Not Reportable Eosinophils % Not Reportable Basophils % Not Reportable Absolute Neutrophils Not Reportable Absolute Lymphocytes Not Reportable Absolute Monocytes Not Reportable Absolute Eosinophils Not Reportable Absolute Basophils Not Reportable Sodium 144.2 Potassium 5.1 H Chloride 122 H Carbon Dioxide 12 L Anion Gap 10 BUN 7 Creatinine 1.37 H Est GFR ( Amer) 47 L Est GFR (Non-Af Amer) 39 L Glucose 102 Calcium 8.5 Total Bilirubin 0.5 AST 17 ALT 30 Alkaline Phosphatase 48 Total Protein 5.3 L Albumin 2.8 L 05/08/17 05/08/17 05/08/17 11:52 11:52 11:52 Creatine Kinase 257 H Troponin I < 0.012 NT-Pro-B Natriuret Pep Cancelled 828 05/08/17 05/08/17 05/08/17 17:20 17:40 23:20 Creatine Kinase 276 H 237 H Troponin I < 0.012 NT-Pro-B Natriuret Pep 05/08/17 23:20 Creatine Kinase Troponin I < 0.012 NT-Pro-B Natriuret Pep Impressions: Chest X-Ray 05/07/17 21:52 IMPRESSION: NO ACUTE RADIOGRAPHIC FINDING IN THE CHEST. Lung Scan-VQ NM 05/08/17 01:13 IMPRESSION: Intermediate probability for pulmonary emboli. Venous Doppler Study 05/08/17 04:56 IMPRESSION: NO EVIDENCE OF DVT OR SVT IN THE LEFT LEG. Assessment & Plan - Diagnosis (1) Hypovolemia Is this a current diagnosis for this admission?: Yes (2) Hypotension Qualifiers: Hypotension type: orthostatic hypotension Qualified Code(s): I95.1 - Orthostatic hypotension Is this a current diagnosis for this admission?: Yes (3) Metabolic acidosis with respiratory alkalosis Is this a current diagnosis for this admission?: Yes (4) Diarrhea Qualifiers: Diarrhea type: unspecified type Qualified Code(s): R19.7 - Diarrhea, unspecified Is this a current diagnosis for this admission?: Yes (5) Vascular dementia Qualifiers: Dementia behavioral disturbance: without behavioral disturbance Qualified Code(s): F01.50 - Vascular dementia without behavioral disturbance Is this a current diagnosis for this admission?: Yes (6) Acute kidney injury Is this a current diagnosis for this admission?: Yes (7) COPD (chronic obstructive pulmonary disease) Qualifiers: COPD type: unspecified COPD Qualified Code(s): J44.9 - Chronic obstructive pulmonary disease, unspecified (8) Hypernatremia Is this a current diagnosis for this admission?: Yes
[2017-05-11] MEDS: ATORVASTATIN CALCIUM 20 MG TABLET PO SCH (22:27)
[2017-05-12] MEDS: HEPARIN SOD (PORCINE) 5,000 UNIT/ML 1 ML SYRINGE SUBCUT SCH ×3 (05:08→22:12)
[2017-05-12 06:39] LABS: HEMATOCRIT 33.7 % (36.0-47.0); HGB HCT DIFFERENCE -0.7; MEAN CORPUSCULAR HEMOGLOBIN 31.4 pg (27.0-33.4); MEAN CORPUSCULAR HGB CONC 32.8 g/dL (32.0-36.0); MEAN CORPUSCULAR VOLUME 96 fl (80-97); RED BLOOD COUNT 3.52 10^6/uL (3.72-5.28); RED CELL DISTRIBUTION WIDTH 19.8 % (11.5-14.0); WHITE BLOOD COUNT 9.3 10^3/uL (4.0-10.5)
[2017-05-12] MEDS: PRAMIPEXOLE DI-HCL 0.25 MG TABLET PO SCH ×2 (10:19→22:12)
[2017-05-12] MEDS: PIOGLITAZONE HCL 15 MG TABLET PO SCH (10:19)
[2017-05-12] MEDS: DONEPEZIL HCL 5 MG TABLET PO SCH (10:19)
[2017-05-12] MEDS: LOSARTAN POTASSIUM 50 MG TABLET PO SCH (10:19)
[2017-05-12] MEDS: POTASSI CL 20 MEQ/D5NS 1L 20 MEQ/1,000 ML RTUINJ IV PRN (13:11)
--- NOTE | 2017-05-12 20:35 | PDOC PROGRESS REPORT ---
Subjective Progress Note for:: 05/12/17 Subjective:: Patient is more responsive, seems to be getting better, she has less diarrhea, steatorrhea was suspected, 48 hour stool collection was ordered but yet to be collected. Kidney function is improved with hydration, Reason For Visit: CONFUSION H/O VASCULAR DEMENTIA ACUTE KIDNEY Physical Exam Vital Signs: Temp Pulse Resp BP Pulse Ox 98.4 F 102 H 20 122/60 100 05/12/17 16:28 05/12/17 19:00 05/12/17 16:28 05/12/17 16:28 05/12/17 16:28 Intake & Output 05/11/17 05/12/17 05/13/17 06:59 06:59 06:59 Intake Total 2855 0 1080 Output Total 20 Balance 2855 0 1080 Weight 76.1 kg 77.7 kg General appearance: PRESENT: no acute distress Eye exam: PRESENT: PERRLA Respiratory exam: PRESENT: clear to auscultation chris Cardiovascular exam: PRESENT: +S1, +S2 GI/Abdominal exam: PRESENT: soft Neurological exam: PRESENT: alert Results Laboratory Results: 05/12/17 06:16 05/11/17 13:24 05/12/17 06:16 WBC 9.3 RBC 3.52 L Hgb 11.0 L Hct 33.7 L MCV 96 MCH 31.4 MCHC 32.8 RDW 19.8 H Plt Count 208 05/08/17 05/08/17 05/08/17 11:52 11:52 11:52 Creatine Kinase 257 H Troponin I < 0.012 NT-Pro-B Natriuret Pep Cancelled 828 05/08/17 05/08/17 05/08/17 17:20 17:40 23:20 Creatine Kinase 276 H 237 H Troponin I < 0.012 NT-Pro-B Natriuret Pep 05/08/17 23:20 Creatine Kinase Troponin I < 0.012 NT-Pro-B Natriuret Pep Impressions: Chest X-Ray 05/07/17 21:52 IMPRESSION: NO ACUTE RADIOGRAPHIC FINDING IN THE CHEST. Lung Scan-VQ NM 05/08/17 01:13 IMPRESSION: Intermediate probability for pulmonary emboli. Venous Doppler Study 05/08/17 04:56 IMPRESSION: NO EVIDENCE OF DVT OR SVT IN THE LEFT LEG. Assessment & Plan - Diagnosis (1) Hypovolemia Is this a current diagnosis for this admission?: Yes (2) Hypotension Qualifiers: Hypotension type: orthostatic hypotension Qualified Code(s): I95.1 - Orthostatic hypotension Is this a current diagnosis for this admission?: Yes (3) Metabolic acidosis with respiratory alkalosis Is this a current diagnosis for this admission?: Yes (4) Diarrhea Qualifiers: Diarrhea type: unspecified type Qualified Code(s): R19.7 - Diarrhea, unspecified Is this a current diagnosis for this admission?: Yes (5) Vascular dementia Qualifiers: Dementia behavioral disturbance: without behavioral disturbance Qualified Code(s): F01.50 - Vascular dementia without behavioral disturbance Is this a current diagnosis for this admission?: Yes (6) Acute kidney injury Is this a current diagnosis for this admission?: Yes (7) COPD (chronic obstructive pulmonary disease) Qualifiers: COPD type: unspecified COPD Qualified Code(s): J44.9 - Chronic obstructive pulmonary disease, unspecified (8) Hypernatremia Is this a current diagnosis for this admission?: Yes - Plan Summary Plan Summary: She will continue present fluid treatment
[2017-05-12] MEDS: ATORVASTATIN CALCIUM 20 MG TABLET PO SCH (22:12)
[2017-05-13] MEDS: POTASSI CL 20 MEQ/D5NS 1L 20 MEQ/1,000 ML RTUINJ IV PRN ×3 (00:37→22:38)
[2017-05-13] MEDS: HEPARIN SOD (PORCINE) 5,000 UNIT/ML 1 ML SYRINGE SUBCUT SCH ×3 (05:22→22:38)
[2017-05-13] MEDS: DONEPEZIL HCL 5 MG TABLET PO SCH (09:13)
[2017-05-13] MEDS: PIOGLITAZONE HCL 15 MG TABLET PO SCH (09:13)
[2017-05-13] MEDS: PRAMIPEXOLE DI-HCL 0.25 MG TABLET PO SCH ×2 (09:13→22:38)
[2017-05-13] MEDS: LOSARTAN POTASSIUM 50 MG TABLET PO SCH (09:26)
[2017-05-13 09:40] LABS: HEMATOCRIT 35.9 % (36.0-47.0); HEMOGLOBIN 11.8 g/dL (12.0-15.5); HGB HCT DIFFERENCE -0.5; MEAN CORPUSCULAR HEMOGLOBIN 31.8 pg (27.0-33.4); MEAN CORPUSCULAR HGB CONC 32.9 g/dL (32.0-36.0); MEAN CORPUSCULAR VOLUME 97 fl (80-97); RED BLOOD COUNT 3.72 10^6/uL (3.72-5.28); RED CELL DISTRIBUTION WIDTH 19.9 % (11.5-14.0); WHITE BLOOD COUNT 9.7 10^3/uL (4.0-10.5)
[2017-05-13 12:01] LABS: ALANINE AMINOTRANSFERASE 29 U/L (9-52); ALKALINE PHOSPHATASE 55 U/L (38-126); ANION GAP 10 (5-19); ASPARTATE AMINO TRANSFERASE 16 U/L (14-36); BILIRUBIN,DIRECT 0.5 mg/dL (0.0-0.4); BILIRUBIN,TOTAL 0.5 mg/dL (0.2-1.3); BLOOD UREA NITROGEN 7 mg/dL (7-20); CALCIUM 8.5 mg/dL (8.4-10.2); CARBON DIOXIDE 15 mmol/L (22-30); CHLORIDE 117 mmol/L (98-107); CREATININE RESULT 1.17 mg/dL (0.52-1.25); GLUCOSE 98 mg/dL (75-110); POTASSIUM 4.7 mmol/L (3.6-5.0); TOTAL PROTEIN 5.8 g/dL (6.3-8.2)
--- NOTE | 2017-05-13 20:24 | PDOC PROGRESS REPORT ---
Subjective Progress Note for:: 05/13/17 Subjective:: Patient seen by the bedside, she is out of bed to chair Reason For Visit: CONFUSION H/O VASCULAR DEMENTIA ACUTE KIDNEY Physical Exam Vital Signs: Temp Pulse Resp BP Pulse Ox 97.8 F 84 18 115/51 L 100 05/13/17 15:49 05/13/17 19:00 05/13/17 15:49 05/13/17 15:49 05/13/17 11:22 Intake & Output 05/12/17 05/13/17 05/14/17 06:59 06:59 06:59 Intake Total 2069 2530 1581 Output Total 20 Balance 2049 2530 1581 Weight 77.7 kg 77.3 kg General appearance: PRESENT: no acute distress Eye exam: PRESENT: PERRLA Respiratory exam: PRESENT: clear to auscultation chris Cardiovascular exam: PRESENT: +S1, +S2 GI/Abdominal exam: PRESENT: soft Neurological exam: PRESENT: alert Results Laboratory Results: 05/13/17 09:10 05/13/17 11:37 05/13/17 05/13/17 09:10 11:37 WBC 9.7 RBC 3.72 Hgb 11.8 L Hct 35.9 L MCV 97 MCH 31.8 MCHC 32.9 RDW 19.9 H Plt Count 230 Sodium 142.0 Potassium 4.7 Chloride 117 H Carbon Dioxide 15 L Anion Gap 10 BUN 7 Creatinine 1.17 Est GFR ( Amer) 56 L Est GFR (Non-Af Amer) 46 L Glucose 98 Calcium 8.5 Total Bilirubin 0.5 AST 16 ALT 29 Alkaline Phosphatase 55 Total Protein 5.8 L Albumin 3.0 L 05/08/17 11:52 Blood Blood Culture - Final NO GROWTH IN 5 DAYS 05/08/17 02:00 Blood Blood Culture - Final NO GROWTH IN 5 DAYS 05/08/17 05/08/17 05/08/17 11:52 11:52 11:52 Creatine Kinase 257 H Troponin I < 0.012 NT-Pro-B Natriuret Pep Cancelled 828 05/08/17 05/08/17 05/08/17 17:20 17:40 23:20 Creatine Kinase 276 H 237 H Troponin I < 0.012 NT-Pro-B Natriuret Pep 05/08/17 23:20 Creatine Kinase Troponin I < 0.012 NT-Pro-B Natriuret Pep Impressions: Chest X-Ray 05/07/17 21:52 IMPRESSION: NO ACUTE RADIOGRAPHIC FINDING IN THE CHEST. Lung Scan-VQ NM 05/08/17 01:13 IMPRESSION: Intermediate probability for pulmonary emboli. Venous Doppler Study 05/08/17 04:56 IMPRESSION: NO EVIDENCE OF DVT OR SVT IN THE LEFT LEG. Assessment & Plan - Diagnosis (1) Hypovolemia Is this a current diagnosis for this admission?: Yes (2) Hypotension Qualifiers: Hypotension type: orthostatic hypotension Qualified Code(s): I95.1 - Orthostatic hypotension Is this a current diagnosis for this admission?: Yes (3) Metabolic acidosis with respiratory alkalosis Is this a current diagnosis for this admission?: Yes (4) Diarrhea Qualifiers: Diarrhea type: unspecified type Qualified Code(s): R19.7 - Diarrhea, unspecified Is this a current diagnosis for this admission?: Yes (5) Vascular dementia Qualifiers: Dementia behavioral disturbance: without behavioral disturbance Qualified Code(s): F01.50 - Vascular dementia without behavioral disturbance Is this a current diagnosis for this admission?: Yes (6) Acute kidney injury Is this a current diagnosis for this admission?: Yes (7) COPD (chronic obstructive pulmonary disease) Qualifiers: COPD type: unspecified COPD Qualified Code(s): J44.9 - Chronic obstructive pulmonary disease, unspecified (8) Hypernatremia Is this a current diagnosis for this admission?: Yes
[2017-05-13] MEDS: ATORVASTATIN CALCIUM 20 MG TABLET PO SCH (22:38)
[2017-05-14] MEDS: HEPARIN SOD (PORCINE) 5,000 UNIT/ML 1 ML SYRINGE SUBCUT SCH ×2 (06:04→13:29)
[2017-05-14 06:38] LABS: HEMATOCRIT 33.3 % (36.0-47.0); HGB HCT DIFFERENCE -0.3; MEAN CORPUSCULAR HEMOGLOBIN 31.6 pg (27.0-33.4); MEAN CORPUSCULAR HGB CONC 33.1 g/dL (32.0-36.0); MEAN CORPUSCULAR VOLUME 96 fl (80-97); RED BLOOD COUNT 3.49 10^6/uL (3.72-5.28); RED CELL DISTRIBUTION WIDTH 20.2 % (11.5-14.0); WHITE BLOOD COUNT 9.1 10^3/uL (4.0-10.5)
[2017-05-14] MEDS: POTASSI CL 20 MEQ/D5NS 1L 20 MEQ/1,000 ML RTUINJ IV PRN (08:13)
[2017-05-14] MEDS: DONEPEZIL HCL 5 MG TABLET PO SCH (10:19)
[2017-05-14] MEDS: LOSARTAN POTASSIUM 50 MG TABLET PO SCH (10:20)
[2017-05-14] MEDS: PIOGLITAZONE HCL 15 MG TABLET PO SCH (10:21)
[2017-05-14] MEDS: PRAMIPEXOLE DI-HCL 0.25 MG TABLET PO SCH (10:21)
[2017-05-14] MEDS ORDERED: FUROSEMIDE INJ/PF 40 MG/4 ML SDV IV ONE (19:00)
--- NOTE | 2017-05-14 21:39 | PDOC PROGRESS REPORT ---
Subjective Progress Note for:: 05/14/17 Subjective:: She was seen by the bedside, it seems that she is volume overloaded, will DC IV fluid and give bolus ,lasix IV Reason For Visit: CONFUSION H/O VASCULAR DEMENTIA ACUTE KIDNEY Physical Exam Vital Signs: Temp Pulse Resp BP Pulse Ox 98.7 F 51 L 20 128/79 H 100 05/14/17 15:06 05/14/17 15:06 05/14/17 15:06 05/14/17 15:06 05/14/17 15:06 Intake & Output 05/13/17 05/14/17 05/15/17 06:59 06:59 06:59 Intake Total 2530 3018 1577 Balance 2530 3018 1577 Weight 77.3 kg 79.8 kg General appearance: PRESENT: no acute distress Head exam: PRESENT: atraumatic, normocephalic. ABSENT: other Eye exam: ABSENT: scleral icterus Mouth exam: PRESENT: moist, tongue midline Neck exam: PRESENT: full ROM Respiratory exam: PRESENT: crackles Cardiovascular exam: PRESENT: RRR, +S1, +S2 Pulses: PRESENT: normal dorsalis pedis pul, +2 pedal pulses bilateral Vascular exam: PRESENT: normal capillary refill GI/Abdominal exam: PRESENT: normal bowel sounds, soft Rectal exam: PRESENT: deferred Neurological exam: PRESENT: alert, CN II-XII grossly intact Psychiatric exam: PRESENT: appropriate affect, normal mood Skin exam: PRESENT: dry, intact, warm Results Laboratory Results: 05/14/17 06:14 05/13/17 11:37 05/14/17 06:14 WBC 9.1 RBC 3.49 L Hgb 11.0 L Hct 33.3 L MCV 96 MCH 31.6 MCHC 33.1 RDW 20.2 H Plt Count 229 05/08/17 05/08/17 05/08/17 11:52 11:52 11:52 Creatine Kinase 257 H Troponin I < 0.012 NT-Pro-B Natriuret Pep Cancelled 828 05/08/17 05/08/17 05/08/17 17:20 17:40 23:20 Creatine Kinase 276 H 237 H Troponin I < 0.012 NT-Pro-B Natriuret Pep 05/08/17 23:20 Creatine Kinase Troponin I < 0.012 NT-Pro-B Natriuret Pep Impressions: Chest X-Ray 05/07/17 21:52 IMPRESSION: NO ACUTE RADIOGRAPHIC FINDING IN THE CHEST. Lung Scan-VQ NM 05/08/17 01:13 IMPRESSION: Intermediate probability for pulmonary emboli. Venous Doppler Study 05/08/17 04:56 IMPRESSION: NO EVIDENCE OF DVT OR SVT IN THE LEFT LEG. Assessment & Plan - Diagnosis (1) Hypovolemia Is this a current diagnosis for this admission?: Yes (2) Hypotension Qualifiers: Hypotension type: orthostatic hypotension Qualified Code(s): I95.1 - Orthostatic hypotension Is this a current diagnosis for this admission?: Yes (3) Metabolic acidosis with respiratory alkalosis Is this a current diagnosis for this admission?: Yes (4) Diarrhea Qualifiers: Diarrhea type: unspecified type Qualified Code(s): R19.7 - Diarrhea, unspecified Is this a current diagnosis for this admission?: Yes (5) Vascular dementia Qualifiers: Dementia behavioral disturbance: without behavioral disturbance Qualified Code(s): F01.50 - Vascular dementia without behavioral disturbance Is this a current diagnosis for this admission?: Yes (6) Acute kidney injury Is this a current diagnosis for this admission?: Yes (7) COPD (chronic obstructive pulmonary disease) Qualifiers: COPD type: unspecified COPD Qualified Code(s): J44.9 - Chronic obstructive pulmonary disease, unspecified (8) Hypernatremia Is this a current diagnosis for this admission?: Yes
[2017-05-15] MEDS ORDERED: FUROSEMIDE INJ/PF 40 MG/4 ML SDV IV ONE (01:15)
[2017-05-15] MEDS: HEPARIN SOD (PORCINE) 5,000 UNIT/ML 1 ML SYRINGE SUBCUT SCH ×4 (01:17→21:36)
[2017-05-15] MEDS: ATORVASTATIN CALCIUM 20 MG TABLET PO SCH ×2 (01:19→21:35)
[2017-05-15] MEDS: PRAMIPEXOLE DI-HCL 0.25 MG TABLET PO SCH ×3 (01:20→21:36)
[2017-05-15] MEDS: LOSARTAN POTASSIUM 50 MG TABLET PO SCH (10:42)
[2017-05-15] MEDS: PIOGLITAZONE HCL 15 MG TABLET PO SCH (10:42)
[2017-05-15] MEDS: DONEPEZIL HCL 5 MG TABLET PO SCH (10:42)
--- NOTE | 2017-05-15 14:12 | PDOC PROGRESS REPORT ---
Subjective Progress Note for:: 05/15/17 Subjective:: Patient denied chest pain or difficult with breathing. No reported fever or chills. No nausea, vomiting, or abdominal pain. Oral intake satisfactory. Reason For Visit: CONFUSION H/O VASCULAR DEMENTIA ACUTE KIDNEY Physical Exam Vital Signs: Temp Pulse Resp BP Pulse Ox 98.6 F 92 19 100/51 L 100 05/15/17 12:23 05/15/17 12:23 05/15/17 12:23 05/15/17 12:23 05/15/17 12:23 Intake & Output 05/14/17 05/15/17 05/16/17 06:59 06:59 06:59 Intake Total 3018 1777 954 Balance 3018 1777 954 Weight 79.8 kg 78.1 kg General appearance: PRESENT: no acute distress Head exam: PRESENT: atraumatic, normocephalic Eye exam: PRESENT: conjunctiva pink, EOMI, PERRLA. ABSENT: scleral icterus Mouth exam: PRESENT: moist Respiratory exam: PRESENT: clear to auscultation chris, decreased breath sounds Cardiovascular exam: PRESENT: RRR. ABSENT: diastolic murmur, rubs, systolic murmur Vascular exam: PRESENT: normal capillary refill. ABSENT: pallor GI/Abdominal exam: PRESENT: normal bowel sounds, soft. ABSENT: distended, guarding, mass, organolmegaly, rebound, tenderness Extremities exam: ABSENT: pedal edema Musculoskeletal exam: PRESENT: normal inspection Neurological exam: PRESENT: alert - and approariate in simple responses. Baseline vascular dementia., awake Psychiatric exam: PRESENT: appropriate affect, normal mood. ABSENT: homicidal ideation, suicidal ideation Skin exam: PRESENT: dry, intact, warm. ABSENT: cyanosis, rash Results Laboratory Results: 05/14/17 06:14 05/13/17 11:37 05/08/17 05/08/17 05/08/17 11:52 11:52 11:52 Creatine Kinase 257 H Troponin I < 0.012 NT-Pro-B Natriuret Pep Cancelled 828 05/08/17 05/08/17 05/08/17 17:20 17:40 23:20 Creatine Kinase 276 H 237 H Troponin I < 0.012 NT-Pro-B Natriuret Pep 05/08/17 23:20 Creatine Kinase Troponin I < 0.012 NT-Pro-B Natriuret Pep Impressions: Chest X-Ray 05/07/17 21:52 IMPRESSION: NO ACUTE RADIOGRAPHIC FINDING IN THE CHEST. Lung Scan-VQ NM 05/08/17 01:13 IMPRESSION: Intermediate probability for pulmonary emboli. Venous Doppler Study 05/08/17 04:56 IMPRESSION: NO EVIDENCE OF DVT OR SVT IN THE LEFT LEG. Assessment & Plan - Diagnosis (1) Acute kidney injury Is this a current diagnosis for this admission?: Yes Plan: see covering attending physician orders. (2) Hypotension Qualifiers: Hypotension type: unspecified hypotension type Qualified Code(s): I95.9 - Hypotension, unspecified Is this a current diagnosis for this admission?: Yes Plan: see covering attending physician orders. (3) Vascular dementia Qualifiers: Dementia behavioral disturbance: without behavioral disturbance Qualified Code(s): F01.50 - Vascular dementia without behavioral disturbance Is this a current diagnosis for this admission?: Yes Plan: see covering attending physician orders. - Time Time Spent with patient: 25-34 minutes Medications reviewed and adjusted accordingly: Yes Anticipated discharge: SNF Within: Other - Inpatient Certification Based on my medical assessment, after consideration of the patient's comorbidities, presenting symptoms, or acuity I expect that the services needed warrant INPATIENT care.: Yes I certify that my determination is in accordance with my understanding of Medicare's requirements for reasonable and necessary INPATIENT services [42 CFR 412.3e].: Yes Medical Necessity: Need Close Monitoring Due to Risk of Patient Decompensation, Need For IV Fluids, Risk of Complication if Not Cared For in Hospital Post Hospital Care: D/C or Transfer Summary - Plan Summary Plan Summary: see covering attending physician orders.
[2017-05-16 06:03] LABS: ALANINE AMINOTRANSFERASE 30 U/L (9-52); ALBUMIN 2.5 g/dL (3.5-5.0); ALKALINE PHOSPHATASE 58 U/L (38-126); ANION GAP 10 (5-19); ASPARTATE AMINO TRANSFERASE 17 U/L (14-36); BILIRUBIN,DIRECT 0.3 mg/dL (0.0-0.4); BILIRUBIN,TOTAL 0.5 mg/dL (0.2-1.3); BLOOD UREA NITROGEN 11 mg/dL (7-20); CALCIUM 8.6 mg/dL (8.4-10.2); CARBON DIOXIDE 15 mmol/L (22-30); CHLORIDE 111 mmol/L (98-107); GLUCOSE 74 mg/dL (75-110); POTASSIUM 4.3 mmol/L (3.6-5.0)
[2017-05-16] MEDS: HEPARIN SOD (PORCINE) 5,000 UNIT/ML 1 ML SYRINGE SUBCUT SCH ×3 (06:19→22:52)
[2017-05-16] MEDS: PIOGLITAZONE HCL 15 MG TABLET PO SCH (10:46)
[2017-05-16] MEDS: LOSARTAN POTASSIUM 50 MG TABLET PO SCH (10:47)
[2017-05-16] MEDS: DONEPEZIL HCL 5 MG TABLET PO SCH (10:47)
[2017-05-16] MEDS: PRAMIPEXOLE DI-HCL 0.25 MG TABLET PO SCH ×2 (10:48→22:52)
--- NOTE | 2017-05-16 12:49 | PDOC PROGRESS REPORT ---
Subjective Progress Note for:: 05/16/17 Subjective:: No chest pain or difficult with breathing. No reported fever or chills. No nausea, vomiting, or abdominal pain. She is eating food from [employer] as supplied by family members. Reason For Visit: CONFUSION H/O VASCULAR DEMENTIA ACUTE KIDNEY Physical Exam Vital Signs: Temp Pulse Resp BP Pulse Ox 99.4 F 74 19 107/51 L 100 05/16/17 11:13 05/16/17 11:13 05/16/17 11:13 05/16/17 11:13 05/16/17 11:13 Intake & Output 05/15/17 05/16/17 05/17/17 06:59 06:59 06:59 Intake Total 1777 1796 Balance 1777 1796 Weight 78.1 kg 78.3 kg Physical Exam: General appearance: PRESENT: no acute distress Head exam: PRESENT: atraumatic, normocephalic Eye exam: PRESENT: conjunctiva pink, EOMI, PERRLA. ABSENT: scleral icterus Mouth exam: PRESENT: moist Respiratory exam: PRESENT: clear to auscultation chris, decreased breath sounds Cardiovascular exam: PRESENT: RRR. ABSENT: diastolic murmur, rubs, systolic murmur Vascular exam: PRESENT: normal capillary refill. ABSENT: pallor GI/Abdominal exam: PRESENT: normal bowel sounds, soft. Extremities exam: ABSENT: pedal edema Musculoskeletal exam: PRESENT: normal inspection Neurological exam: PRESENT: alert - and appropriate in simple responses. Baseline vascular dementia., awake Psychiatric exam: PRESENT: appropriate affect, normal mood. ABSENT: homicidal ideation, suicidal ideation Skin exam: PRESENT: dry, intact, warm. ABSENT: cyanosis, rash Results Laboratory Results: 05/14/17 06:14 05/16/17 05:16 05/16/17 05:16 Sodium 136.0 L Potassium 4.3 Chloride 111 H Carbon Dioxide 15 L Anion Gap 10 BUN 11 Creatinine 1.30 H Est GFR ( Amer) 50 L Est GFR (Non-Af Amer) 41 L Glucose 74 L Calcium 8.6 Total Bilirubin 0.5 AST 17 ALT 30 Alkaline Phosphatase 58 Total Protein 5.0 L Albumin 2.5 L 05/08/17 05/08/17 05/08/17 11:52 11:52 11:52 Creatine Kinase 257 H Troponin I < 0.012 NT-Pro-B Natriuret Pep Cancelled 828 05/08/17 05/08/17 05/08/17 17:20 17:40 23:20 Creatine Kinase 276 H 237 H Troponin I < 0.012 NT-Pro-B Natriuret Pep 05/08/17 23:20 Creatine Kinase Troponin I < 0.012 NT-Pro-B Natriuret Pep Impressions: Chest X-Ray 05/07/17 21:52 IMPRESSION: NO ACUTE RADIOGRAPHIC FINDING IN THE CHEST. Lung Scan-VQ NM 05/08/17 01:13 IMPRESSION: Intermediate probability for pulmonary emboli. Venous Doppler Study 05/08/17 04:56 IMPRESSION: NO EVIDENCE OF DVT OR SVT IN THE LEFT LEG. Assessment & Plan - Diagnosis (1) Acute kidney injury Is this a current diagnosis for this admission?: Yes (2) Hypotension Qualifiers: Hypotension type: unspecified hypotension type Qualified Code(s): I95.9 - Hypotension, unspecified Is this a current diagnosis for this admission?: Yes (3) Vascular dementia Qualifiers: Dementia behavioral disturbance: without behavioral disturbance Qualified Code(s): F01.50 - Vascular dementia without behavioral disturbance Is this a current diagnosis for this admission?: Yes - Time Time Spent with patient: 25-34 minutes Medications reviewed and adjusted accordingly: Yes Anticipated discharge: SNF Within: Other - Inpatient Certification Based on my medical assessment, after consideration of the patient's comorbidities, presenting symptoms, or acuity I expect that the services needed warrant INPATIENT care.: Yes I certify that my determination is in accordance with my understanding of Medicare's requirements for reasonable and necessary INPATIENT services [42 CFR 412.3e].: Yes Medical Necessity: Need Close Monitoring Due to Risk of Patient Decompensation, Need For IV Fluids, Need For Continuous Telemetry Monitoring, Need for IV Antibiotics, Risk of Complication if Not Cared For in Hospital Post Hospital Care: D/C Stri[employer] Documentation - Plan Summary Plan Summary: See covering attending physician orders.
[2017-05-16] MEDS: ATORVASTATIN CALCIUM 20 MG TABLET PO SCH (22:52)
[2017-05-17] MEDS: HEPARIN SOD (PORCINE) 5,000 UNIT/ML 1 ML SYRINGE SUBCUT SCH ×3 (05:24→21:34)
[2017-05-17 07:25] LABS: HEMATOCRIT 27.1 % (36.0-47.0); HEMOGLOBIN 9.4 g/dL (12.0-15.5); HGB HCT DIFFERENCE 1.1; MEAN CORPUSCULAR HEMOGLOBIN 32.6 pg (27.0-33.4); MEAN CORPUSCULAR HGB CONC 34.6 g/dL (32.0-36.0); MEAN CORPUSCULAR VOLUME 94 fl (80-97); RED BLOOD COUNT 2.88 10^6/uL (3.72-5.28); RED CELL DISTRIBUTION WIDTH 19.7 % (11.5-14.0); WHITE BLOOD COUNT 9.9 10^3/uL (4.0-10.5)
[2017-05-17] MEDS: DONEPEZIL HCL 5 MG TABLET PO SCH (10:32)
[2017-05-17] MEDS: PRAMIPEXOLE DI-HCL 0.25 MG TABLET PO SCH ×2 (10:33→21:35)
[2017-05-17] MEDS: PIOGLITAZONE HCL 15 MG TABLET PO SCH (10:33)
[2017-05-17] MEDS: LOSARTAN POTASSIUM 50 MG TABLET PO SCH (10:33)
--- NOTE | 2017-05-17 18:13 | PDOC PROGRESS REPORT ---
Subjective Progress Note for:: 05/17/17 Subjective:: Patient was seen by the bedside, she is alert but she would not answer questions , she will need rehabilitation in [facility], consultation will be requested from discharge planners to make arrangements for placement in [facility] for [facility]. She has progressive vascular dementia with periods of lucidity and confusion Reason For Visit: CONFUSION H/O VASCULAR DEMENTIA ACUTE KIDNEY Physical Exam Vital Signs: Temp Pulse Resp BP Pulse Ox 98.2 F 78 18 114/47 L 100 05/17/17 11:11 05/17/17 14:00 05/17/17 11:11 05/17/17 11:11 05/17/17 11:11 Intake & Output 05/16/17 05/17/17 05/18/17 06:59 06:59 06:59 Intake Total 1796 1496 222 Balance 1796 1496 222 Weight 78.3 kg 74.9 kg General appearance: PRESENT: no acute distress Eye exam: PRESENT: PERRLA Respiratory exam: PRESENT: clear to auscultation chris Cardiovascular exam: PRESENT: +S1 GI/Abdominal exam: PRESENT: soft Neurological exam: PRESENT: alert Results Laboratory Results: 05/17/17 07:16 05/16/17 05:16 05/17/17 07:16 WBC 9.9 RBC 2.88 L Hgb 9.4 L Hct 27.1 L MCV 94 MCH 32.6 MCHC 34.6 RDW 19.7 H Plt Count 252 05/08/17 05/08/17 05/08/17 11:52 11:52 11:52 Creatine Kinase 257 H Troponin I < 0.012 NT-Pro-B Natriuret Pep Cancelled 828 05/08/17 05/08/17 05/08/17 17:20 17:40 23:20 Creatine Kinase 276 H 237 H Troponin I < 0.012 NT-Pro-B Natriuret Pep 05/08/17 23:20 Creatine Kinase Troponin I < 0.012 NT-Pro-B Natriuret Pep Impressions: Chest X-Ray 05/07/17 21:52 IMPRESSION: NO ACUTE RADIOGRAPHIC FINDING IN THE CHEST. Lung Scan-VQ NM 05/08/17 01:13 IMPRESSION: Intermediate probability for pulmonary emboli. Venous Doppler Study 05/08/17 04:56 IMPRESSION: NO EVIDENCE OF DVT OR SVT IN THE LEFT LEG. Assessment & Plan - Diagnosis (1) Hypovolemia Is this a current diagnosis for this admission?: Yes (2) Hypotension Qualifiers: Hypotension type: orthostatic hypotension Qualified Code(s): I95.1 - Orthostatic hypotension Is this a current diagnosis for this admission?: Yes (3) Metabolic acidosis with respiratory alkalosis Is this a current diagnosis for this admission?: Yes (4) Diarrhea Qualifiers: Diarrhea type: unspecified type Qualified Code(s): R19.7 - Diarrhea, unspecified Is this a current diagnosis for this admission?: Yes (5) Vascular dementia Qualifiers: Dementia behavioral disturbance: without behavioral disturbance Qualified Code(s): F01.50 - Vascular dementia without behavioral disturbance Is this a current diagnosis for this admission?: Yes (6) Acute kidney injury Is this a current diagnosis for this admission?: Yes (7) COPD (chronic obstructive pulmonary disease) Qualifiers: COPD type: unspecified COPD Qualified Code(s): J44.9 - Chronic obstructive pulmonary disease, unspecified (8) Hypernatremia Is this a current diagnosis for this admission?: Yes
[2017-05-17] MEDS: ATORVASTATIN CALCIUM 20 MG TABLET PO SCH (21:34)
[2017-05-18] MEDS: HEPARIN SOD (PORCINE) 5,000 UNIT/ML 1 ML SYRINGE SUBCUT SCH ×3 (05:39→21:03)
[2017-05-18] MEDS: DONEPEZIL HCL 5 MG TABLET PO SCH (10:07)
[2017-05-18] MEDS: PRAMIPEXOLE DI-HCL 0.25 MG TABLET PO SCH ×2 (10:07→21:04)
[2017-05-18] MEDS: PIOGLITAZONE HCL 15 MG TABLET PO SCH (10:07)
[2017-05-18] MEDS: LOSARTAN POTASSIUM 50 MG TABLET PO SCH (10:08)
[2017-05-18] MEDS: ATORVASTATIN CALCIUM 20 MG TABLET PO SCH (21:03)
--- NOTE | 2017-05-18 21:33 | PDOC PROGRESS REPORT ---
Subjective Progress Note for:: 05/18/17 Subjective:: Patient was seen by the bedside, she is alert but she would not answer questions , she will need rehabilitation in retirement facility, consultation will be requested from discharge planners to make arrangements for placement in retirement for rehabilitation. She has progressive vascular dementia with periods of lucidity and confusion Reason For Visit: CONFUSION H/O VASCULAR DEMENTIA ACUTE KIDNEY Physical Exam Vital Signs: Temp Pulse Resp BP Pulse Ox 98.7 F 75 17 103/42 L 98 05/18/17 19:44 05/18/17 19:44 05/18/17 19:44 05/18/17 19:44 05/18/17 19:44 Intake & Output 05/17/17 05/18/17 05/19/17 06:59 06:59 06:59 Intake Total 1496 255 478 Balance 1496 255 478 Weight 74.9 kg 74.3 kg General appearance: PRESENT: no acute distress Eye exam: PRESENT: PERRLA Respiratory exam: PRESENT: clear to auscultation chris Cardiovascular exam: PRESENT: +S1, +S2 GI/Abdominal exam: PRESENT: soft Results Laboratory Results: 05/17/17 07:16 05/16/17 05:16 05/08/17 05/08/17 05/08/17 11:52 11:52 11:52 Creatine Kinase 257 H Troponin I < 0.012 NT-Pro-B Natriuret Pep Cancelled 828 05/08/17 05/08/17 05/08/17 17:20 17:40 23:20 Creatine Kinase 276 H 237 H Troponin I < 0.012 NT-Pro-B Natriuret Pep 05/08/17 23:20 Creatine Kinase Troponin I < 0.012 NT-Pro-B Natriuret Pep Impressions: Chest X-Ray 05/07/17 21:52 IMPRESSION: NO ACUTE RADIOGRAPHIC FINDING IN THE CHEST. Lung Scan-VQ NM 05/08/17 01:13 IMPRESSION: Intermediate probability for pulmonary emboli. Venous Doppler Study 05/08/17 04:56 IMPRESSION: NO EVIDENCE OF DVT OR SVT IN THE LEFT LEG. Assessment & Plan - Diagnosis (1) Hypovolemia Is this a current diagnosis for this admission?: Yes (2) Hypotension Qualifiers: Hypotension type: orthostatic hypotension Qualified Code(s): I95.1 - Orthostatic hypotension Is this a current diagnosis for this admission?: Yes (3) Metabolic acidosis with respiratory alkalosis Is this a current diagnosis for this admission?: Yes (4) Diarrhea Qualifiers: Diarrhea type: unspecified type Qualified Code(s): R19.7 - Diarrhea, unspecified Is this a current diagnosis for this admission?: Yes (5) Vascular dementia Qualifiers: Dementia behavioral disturbance: without behavioral disturbance Qualified Code(s): F01.50 - Vascular dementia without behavioral disturbance Is this a current diagnosis for this admission?: Yes (6) Acute kidney injury Is this a current diagnosis for this admission?: Yes (7) COPD (chronic obstructive pulmonary disease) Qualifiers: COPD type: unspecified COPD Qualified Code(s): J44.9 - Chronic obstructive pulmonary disease, unspecified (8) Hypernatremia Is this a current diagnosis for this admission?: Yes
[2017-05-19] MEDS: HEPARIN SOD (PORCINE) 5,000 UNIT/ML 1 ML SYRINGE SUBCUT SCH ×3 (05:20→21:06)
[2017-05-19 06:44] LABS: HEMATOCRIT 28.8 % (36.0-47.0); HEMOGLOBIN 9.8 g/dL (12.0-15.5); HGB HCT DIFFERENCE 0.6; MEAN CORPUSCULAR HEMOGLOBIN 32.3 pg (27.0-33.4); MEAN CORPUSCULAR HGB CONC 34.1 g/dL (32.0-36.0); MEAN CORPUSCULAR VOLUME 95 fl (80-97); RED BLOOD COUNT 3.04 10^6/uL (3.72-5.28); WHITE BLOOD COUNT 6.9 10^3/uL (4.0-10.5)
[2017-05-19] MEDS: DONEPEZIL HCL 5 MG TABLET PO SCH (09:06)
[2017-05-19] MEDS: PRAMIPEXOLE DI-HCL 0.25 MG TABLET PO SCH ×2 (09:07→21:06)
[2017-05-19] MEDS: LOSARTAN POTASSIUM 50 MG TABLET PO SCH (09:07)
[2017-05-19] MEDS: PIOGLITAZONE HCL 15 MG TABLET PO SCH (09:07)
--- NOTE | 2017-05-19 18:14 | PDOC PROGRESS REPORT ---
Subjective Progress Note for:: 05/19/17 Subjective:: She was seen by the bedside, she is waiting for placement in [facility] for [facility] patient spouse was in the room discuss plan of care with the spouse Reason For Visit: CONFUSION H/O VASCULAR DEMENTIA ACUTE KIDNEY Physical Exam Vital Signs: Temp Pulse Resp BP Pulse Ox 98.3 F 89 18 125/58 L 100 05/19/17 15:32 05/19/17 15:32 05/19/17 15:32 05/19/17 15:32 05/19/17 15:32 Intake & Output 05/18/17 05/19/17 05/20/17 06:59 06:59 06:59 Intake Total 255 916 120 Output Total 200 Balance 255 916 -80 Weight 74.3 kg 73.8 kg General appearance: PRESENT: no acute distress Eye exam: PRESENT: PERRLA Respiratory exam: PRESENT: clear to auscultation chris Cardiovascular exam: PRESENT: +S1, +S2 Neurological exam: PRESENT: alert Results Laboratory Results: 05/19/17 06:15 05/16/17 05:16 05/19/17 06:15 WBC 6.9 RBC 3.04 L Hgb 9.8 L Hct 28.8 L MCV 95 MCH 32.3 MCHC 34.1 RDW 20.0 H Plt Count 271 05/08/17 05/08/17 05/08/17 11:52 11:52 11:52 Creatine Kinase 257 H Troponin I < 0.012 NT-Pro-B Natriuret Pep Cancelled 828 05/08/17 05/08/17 05/08/17 17:20 17:40 23:20 Creatine Kinase 276 H 237 H Troponin I < 0.012 NT-Pro-B Natriuret Pep 05/08/17 23:20 Creatine Kinase Troponin I < 0.012 NT-Pro-B Natriuret Pep Impressions: Chest X-Ray 05/07/17 21:52 IMPRESSION: NO ACUTE RADIOGRAPHIC FINDING IN THE CHEST. Lung Scan-VQ NM 05/08/17 01:13 IMPRESSION: Intermediate probability for pulmonary emboli. Venous Doppler Study 05/08/17 04:56 IMPRESSION: NO EVIDENCE OF DVT OR SVT IN THE LEFT LEG. Assessment & Plan - Diagnosis (1) Hypovolemia Is this a current diagnosis for this admission?: Yes (2) Hypotension Qualifiers: Hypotension type: orthostatic hypotension Qualified Code(s): I95.1 - Orthostatic hypotension Is this a current diagnosis for this admission?: Yes (3) Metabolic acidosis with respiratory alkalosis Is this a current diagnosis for this admission?: Yes (4) Diarrhea Qualifiers: Diarrhea type: unspecified type Qualified Code(s): R19.7 - Diarrhea, unspecified Is this a current diagnosis for this admission?: Yes (5) Vascular dementia Qualifiers: Dementia behavioral disturbance: without behavioral disturbance Qualified Code(s): F01.50 - Vascular dementia without behavioral disturbance Is this a current diagnosis for this admission?: Yes (6) Acute kidney injury Is this a current diagnosis for this admission?: Yes (7) COPD (chronic obstructive pulmonary disease) Qualifiers: COPD type: unspecified COPD Qualified Code(s): J44.9 - Chronic obstructive pulmonary disease, unspecified (8) Hypernatremia Is this a current diagnosis for this admission?: Yes
[2017-05-19] MEDS: ATORVASTATIN CALCIUM 20 MG TABLET PO SCH (21:06)
[2017-05-20] MEDS: HEPARIN SOD (PORCINE) 5,000 UNIT/ML 1 ML SYRINGE SUBCUT SCH ×3 (05:16→21:36)
[2017-05-20] MEDS: PRAMIPEXOLE DI-HCL 0.25 MG TABLET PO SCH ×2 (09:46→21:36)
[2017-05-20] MEDS: DONEPEZIL HCL 5 MG TABLET PO SCH (09:47)
[2017-05-20] MEDS: PIOGLITAZONE HCL 15 MG TABLET PO SCH (09:47)
[2017-05-20] MEDS: LOSARTAN POTASSIUM 50 MG TABLET PO SCH (09:47)
--- NOTE | 2017-05-20 18:47 | PDOC TRANSFER SUMMARY ---
General - Admit/Disc Date/PCP Admission Date/Primary Care Provider: 05/08/17 01:59 DANY BENAVIDES MD Discharge Date: 05/21/17 - Discharge Diagnosis (1) Hypovolemia Is this a current diagnosis for this admission?: Yes (2) Hypotension Is this a current diagnosis for this admission?: Yes (3) Metabolic acidosis with respiratory alkalosis Is this a current diagnosis for this admission?: Yes (4) Diarrhea Is this a current diagnosis for this admission?: Yes (5) Vascular dementia Is this a current diagnosis for this admission?: Yes (6) Acute kidney injury Is this a current diagnosis for this admission?: Yes (7) COPD (chronic obstructive pulmonary disease) Is this a current diagnosis for this admission?: Yes (8) Hypernatremia Is this a current diagnosis for this admission?: Yes - Additional Information Resuscitation Status: Full Code Discharge Diet: Diabetic Discharge Activity: Activity As Tolerated Home Medications: Atorvastatin Calcium [Lipitor 20 mg Tablet] 20 mg PO DAILY 05/08/17 Exenatide Microspheres [Bydureon Pen] 2 mg SQ Q7D 05/08/17 Tiotropium Br/Olodaterol HCl [Stiolto Respimat Inhal Poth] 4 gm IH DAILY Donepezil HCl [Aricept 5 mg Tablet] 10 mg PO DAILY tablet 05/20/17 Losartan Potassium [Cozaar 50 mg Tablet] 100 mg PO DAILY tablet 05/20/17 Pioglitazone HCl [Actos 15 mg Tablet] 15 mg PO DAILY tablet 05/20/17 History of Present Illness Admission Date/PCP: 05/08/17 01:59 DANY BENAVIDES MD History of Present Illness: MICAH WOMACK is a 66 year old female, she has a history of chronic kidney disease stage III, vascular dementia, chronic obstructive pulmonary disease. She came to the emergency room for evaluation of nonspecific complaints, weakness, she was accompanied by the , he stated that patient is unable to stand and that she falling back onto the bed. He also stated that she has not been drinking any fluid and that she is dehydrated. In the emergency room she was evaluated she was found to have a low blood pressure and she was also tachycardic. The blood work that was done showed serum creatinine of 3.18, in the emergency room the ED providers for some reason suspected pulmonary embolism unfortunately CTA could not be done, VQ scan was ordered, PE was suspected because of bradycardia and left lower extremity swelling, the VQ scan was a poor study because only the perfusion scan was done, she has a history of COPD, this patient population tend to have a match ventilation/perfusion defect. The VQ scan was interpreted as intermediate probability for PE, based on these VQ scan interpretation the patient was started on IV heparin by the ED providers. The pretest probability for PE is extremely low in this patient the VQ scan study is incomplete essentially uninterpretable ABG was done on room air the PO2 was normal. She has metabolic acidosis with respiratory alkalosis based on the ABG, the pH was 7.37, bicarbonate 16 PCO2 28.5 the expected PCO2 for the degree of acidosis should be 30-34 but the measured PCO2 was 28.5 she also have profuse diarrhea, essentially loose stool negative for C. difficile toxin, a rectal tube was inserted because of the degree of loose stool was severe the last time she was discharged from the hospital the serum creatinine was 1.78, the serum creatinine on this admission is 3.18 suggesting acute kidney injury most likely prerenal she also have hypokalemia Hospital Course Hospital Course: Patient was admitted for the management of hypovolemia, hypotension, acute kidney injury metabolic acidosis.. She has vascular dementia, progressive she was managed with IV fluid, she had electrolyte derangement this was corrected. With hydration there was improvement in the blood pressure. Patient is very deconditioned, she will need physical therapy/rehabilitation in the facility.She had episode of hypernatremia Requiring free water Physical Exam Vital Signs: Temp Pulse Resp BP Pulse Ox 98.1 F 90 18 110/37 L 100 05/20/17 15:55 05/20/17 15:55 05/20/17 15:55 05/20/17 15:55 05/20/17 15:55 Intake & Output 05/19/17 05/20/17 05/21/17 06:59 06:59 06:59 Intake Total 085 038 4448 Output Total 200 1 Balance 975 109 0445 Weight 73.8 kg 73.1 kg General appearance: PRESENT: no acute distress Eye exam: PRESENT: PERRLA Ear exam: PRESENT: normal external ear exam Respiratory exam: PRESENT: clear to auscultation chris Cardiovascular exam: PRESENT: RRR, +S1, +S2 Vascular exam: PRESENT: normal capillary refill GI/Abdominal exam: PRESENT: soft Rectal exam: PRESENT: deferred Extremities exam: PRESENT: full ROM Neurological exam: PRESENT: alert Skin exam: ABSENT: cyanosis, rash Results Laboratory Results: 05/19/17 06:15 05/16/17 05:16 05/08/17 05/08/17 05/08/17 11:52 11:52 11:52 Creatine Kinase 257 H Troponin I < 0.012 NT-Pro-B Natriuret Pep Cancelled 828 05/08/17 05/08/17 05/08/17 17:20 17:40 23:20 Creatine Kinase 276 H 237 H Troponin I < 0.012 NT-Pro-B Natriuret Pep 05/08/17 23:20 Creatine Kinase Troponin I < 0.012 NT-Pro-B Natriuret Pep Impressions: Chest X-Ray 05/07/17 21:52 IMPRESSION: NO ACUTE RADIOGRAPHIC FINDING IN THE CHEST. Lung Scan-VQ NM 05/08/17 01:13 IMPRESSION: Intermediate probability for pulmonary emboli. Venous Doppler Study 05/08/17 04:56 IMPRESSION: NO EVIDENCE OF DVT OR SVT IN THE LEFT LEG.
--- NOTE | 2017-05-20 18:49 | PDOC PROGRESS REPORT ---
Subjective Progress Note for:: 05/20/17 Subjective:: Patient was seen by the bedside, she was approved for a bed in the senior care , she should be ready for discharge in the morning to undergo rehabilitation and physical therapy Reason For Visit: CONFUSION H/O VASCULAR DEMENTIA ACUTE KIDNEY Physical Exam Vital Signs: Temp Pulse Resp BP Pulse Ox 98.1 F 90 18 110/37 L 100 05/20/17 15:55 05/20/17 15:55 05/20/17 15:55 05/20/17 15:55 05/20/17 15:55 Intake & Output 05/19/17 05/20/17 05/21/17 06:59 06:59 06:59 Intake Total 785 351 3298 Output Total 200 1 Balance 665 852 7599 Weight 73.8 kg 73.1 kg General appearance: PRESENT: no acute distress Eye exam: PRESENT: PERRLA Respiratory exam: PRESENT: clear to auscultation chris Cardiovascular exam: PRESENT: +S1, +S2 GI/Abdominal exam: PRESENT: soft Neurological exam: PRESENT: alert Results Laboratory Results: 05/19/17 06:15 05/16/17 05:16 05/08/17 05/08/17 05/08/17 11:52 11:52 11:52 Creatine Kinase 257 H Troponin I < 0.012 NT-Pro-B Natriuret Pep Cancelled 828 05/08/17 05/08/17 05/08/17 17:20 17:40 23:20 Creatine Kinase 276 H 237 H Troponin I < 0.012 NT-Pro-B Natriuret Pep 05/08/17 23:20 Creatine Kinase Troponin I < 0.012 NT-Pro-B Natriuret Pep Impressions: Chest X-Ray 05/07/17 21:52 IMPRESSION: NO ACUTE RADIOGRAPHIC FINDING IN THE CHEST. Lung Scan-VQ NM 05/08/17 01:13 IMPRESSION: Intermediate probability for pulmonary emboli. Venous Doppler Study 05/08/17 04:56 IMPRESSION: NO EVIDENCE OF DVT OR SVT IN THE LEFT LEG. Assessment & Plan - Diagnosis (1) Hypovolemia Is this a current diagnosis for this admission?: Yes (2) Hypotension Qualifiers: Hypotension type: orthostatic hypotension Qualified Code(s): I95.1 - Orthostatic hypotension Is this a current diagnosis for this admission?: Yes (3) Metabolic acidosis with respiratory alkalosis Is this a current diagnosis for this admission?: Yes (4) Diarrhea Qualifiers: Diarrhea type: unspecified type Qualified Code(s): R19.7 - Diarrhea, unspecified Is this a current diagnosis for this admission?: Yes (5) Vascular dementia Qualifiers: Dementia behavioral disturbance: without behavioral disturbance Qualified Code(s): F01.50 - Vascular dementia without behavioral disturbance Is this a current diagnosis for this admission?: Yes (6) Acute kidney injury Is this a current diagnosis for this admission?: Yes (7) COPD (chronic obstructive pulmonary disease) Qualifiers: COPD type: unspecified COPD Qualified Code(s): J44.9 - Chronic obstructive pulmonary disease, unspecified Is this a current diagnosis for this admission?: Yes (8) Hypernatremia Is this a current diagnosis for this admission?: Yes
[2017-05-20] MEDS: ATORVASTATIN CALCIUM 20 MG TABLET PO SCH (21:36)
[2017-05-21] MEDS: HEPARIN SOD (PORCINE) 5,000 UNIT/ML 1 ML SYRINGE SUBCUT SCH (05:29)
[2017-05-21 05:55] LABS: HEMATOCRIT 29.2 % (36.0-47.0); HEMOGLOBIN 9.9 g/dL (12.0-15.5); HGB HCT DIFFERENCE 0.5; MEAN CORPUSCULAR HEMOGLOBIN 31.7 pg (27.0-33.4); MEAN CORPUSCULAR HGB CONC 33.7 g/dL (32.0-36.0); MEAN CORPUSCULAR VOLUME 94 fl (80-97); RED BLOOD COUNT 3.11 10^6/uL (3.72-5.28); RED CELL DISTRIBUTION WIDTH 19.3 % (11.5-14.0); WHITE BLOOD COUNT 7.1 10^3/uL (4.0-10.5)
[2017-05-21] MEDS: PRAMIPEXOLE DI-HCL 0.25 MG TABLET PO SCH (09:20)
[2017-05-21] MEDS: LOSARTAN POTASSIUM 50 MG TABLET PO SCH (09:20)
[2017-05-21] MEDS: DONEPEZIL HCL 5 MG TABLET PO SCH (09:20)
[2017-05-21] MEDS: PIOGLITAZONE HCL 15 MG TABLET PO SCH (09:20)
[2017-05-21 12:55] VITALS: BP 103/51
== END 2017-05-21 13:00 | DRG 683 ==
LOC: ER 20:51 → EH 05-08 01:59 → 3S 05-08 16:17
PROVIDERS: ADMIT Internal Medicine; ATTEND Internal Medicine
DX: N17.9 Acute kidney failure, unspecified (principal); E87.3 Alkalosis; E87.4 Mixed disorder of acid-base balance; E87.0 Hyperosmolality and hypernatremia; E86.1 Hypovolemia; E86.0 Dehydration; E87.6 Hypokalemia; J44.9 Chronic obstructive pulmonary disease, unspecified; I10 Essential (primary) hypertension; K21.9 Gastro-esophageal reflux disease without esophagitis; I95.1 Orthostatic hypotension; R19.7 Diarrhea, unspecified; E11.9 Type 2 diabetes mellitus without complications; F01.50 Vascular dementia, unspecified severity, without behavioral disturbance, psychotic disturbance, mood disturbance, and anxiety; F17.210 Nicotine dependence, cigarettes, uncomplicated; Z91.14 Patient's other noncompliance with medication regimen; Z86.73 Personal history of transient ischemic attack (TIA), and cerebral infarction without residual deficits
CPT/HCPCS: 36415; 36600; 71010; 78580; 80048; 80053; 80076; 80307; 81001; 82140; 82150; 82272; 82550; 82553; 82803; 82962; 83036; 83605; 83690; 83880; 84439; 84443; 84484; 85025; 85027; 85610; 85730; 87040; 87086; 87088; 87186; 87493; 89055; 93005; 93010; 93971; 99285; A9540; G8978-GP; G8979-GP; G8987-GO; G8988-GO; J1644; J1940; J3480; J3490; J7030; J7620; Q9969

== ENCOUNTER 2017-09-20 | Emergency (ER) | payer MEDICARE, MEDICAID ==
--- NOTE | 2017-09-20 20:17 | ER Document Report ---
ED General - General Chief Complaint: Neck Swelling Stated Complaint: NECK SWELLING Time Seen by Provider: 09/20/17 18:34 Cannot obtain history due to: Dementia Notes: Patient is a 67-year-old woman who presents from [facility] with concerns of neck swelling. The patient is profoundly demented and unable to provide any history. She denies any complaints or concerns. There is no family or staff at the bedside to assist in history taking. Review of documentation from May 2017 does note that there is a cyst present on the neck at that time. TRAVEL OUTSIDE OF THE [place] IN LAST 30 DAYS: No - Related Data Allergies/Adverse Reactions: No Known Allergies Allergy (Verified 09/20/17 17:26) Past Medical History - General Information source: Transfer Record, [facility] Records Cannot obtain history due to: Dementia - Social History Smoking Status: Unknown if Ever Smoked Chew tobacco use (# tins/day): No Frequency of alcohol use: None Drug Abuse: None Lives with: Intermediate Family History: Reviewed & Not Pertinent Patient has suicidal ideation: No Patient has homicidal ideation: No - Past Medical History Cardiac Medical History: Reports: Hx Hypercholesterolemia, Hx Hypertension Pulmonary Medical History: Reports: Hx Asthma, Hx COPD Neurological Medical History: Reports: Hx Cerebrovascular Accident Endocrine Medical History: Reports: Hx Diabetes Mellitus Type 1, Hx Diabetes Mellitus Type 2 Renal/ Medical History: Reports: Hx Renal Insufficiency. Denies: Hx Peritoneal Dialysis GI Medical History: Reports: Hx Gastroesophageal Reflux Disease Musculoskeltal Medical History: Reports Hx Arthritis - Degenerative Psychiatric Medical History: Reports: Hx Dementia - Vascular dementia Denies: Hx Depression - Immunizations Hx Diphtheria, Pertussis, Tetanus Vaccination: Yes Hx Pneumococcal Vaccination: 06/04/12 Review of Systems - Review of Systems Notes: Constitutional: Negative for fever. HENT: Negative for sore throat. Eyes: Negative for visual changes. Cardiovascular: Negative for chest pain. Respiratory: Negative for shortness of breath. Gastrointestinal: Negative for abdominal pain, vomiting or diarrhea. Genitourinary: Negative for dysuria. Musculoskeletal: Negative for back pain. Skin: Negative for rash. Neurological: Negative for headaches, weakness or numbness. 10 point ROS negative except as marked above and in HPI. Physical Exam - Vital signs Vitals: Temp Pulse BP Pulse Ox 97.5 F 95 114/62 94 09/20/17 17:22 09/20/17 17:22 09/20/17 17:22 09/20/17 17:22 Interpretation: Normal Notes: PHYSICAL EXAMINATION: GENERAL: Appears older than stated age, profoundly demented and seems very guarded towards any form of physical examination HEAD: Atraumatic, normocephalic. EYES: Pupils equal round and reactive to light, extraocular movements intact, sclera anicteric, conjunctiva are normal. ENT: nares patent, oropharynx clear without exudates. Moist mucous membranes. NECK: Normal range of motion, supple without lymphadenopathy. There is a small , soft, compressible mass to the right mid posterior neck most consistent with a cyst. LUNGS: Breath sounds clear to auscultation bilaterally and equal. No wheezes rales or rhonchi. HEART: Regular rate and rhythm without murmurs ABDOMEN: Soft, nontender, normoactive bowel sounds. No guarding, no rebound. No masses appreciated. EXTREMITIES: Normal range of motion, no pitting or edema. No cyanosis. NEUROLOGICAL: No focal neurological deficits. Moves all extremities spontaneously and on command. PSYCH: Alert, oriented only to person SKIN: Warm, Dry, normal turgor, cyst as above Course - Re-evaluation Re-evalutation: 09/20/17 20:15 Patient presents with nursing facility concern about the possibility of swelling to the back of her neck. The patient is very demented, oriented only to her name, very guarded to me during exam. She does have a 2 x 3 cm cystic lesion to the right mid posterior neck. The area is soft, nontender, nonmobile. Examination is most consistent with a benign cystic lesion. No indication for labs or imaging. I have asked that the patient be monitored by her primary care doctor in any additional studies that would be performed are appropriate for outpatient as this is not an emergent condition. There is no evidence of airway compromise or any significant discomfort with it. It is unclear to me why the patient was transferred to the emergency department today for this concern as this has likely been present for quite some time. - Vital Signs Vital signs: Temp Pulse Resp BP Pulse Ox 97.5 F 95 114/62 94 09/20/17 17:22 09/20/17 17:22 09/20/17 17:22 09/20/17 17:22 Discharge - Discharge Clinical Impression: Cyst of neck Vascular dementia Qualifiers: Dementia behavioral disturbance: with behavioral disturbance Qualified Code(s) : F01.51 - Vascular dementia with behavioral disturbance Condition: Stable Disposition: HOME, SELF-CARE Additional Instructions: The areas most consistent with a cyst. Please have the patient follow-up with her general doctor for any additional concerns as this is not an emergency condition at this time. Referrals: DANY BENAVIDES MD [Primary Care Provider] - Follow up as needed
== END 2017-09-20 22:35 | disposition home or self-care (01) ==
CPT/HCPCS: 99283

== ENCOUNTER → 2019-01-04 | Outpatient (CLI) | payer MEDICARE, MEDICAID ==
--- NOTE | 2019-01-04 22:33 | XCELERA REPORT ---
[address] [address] Transthoracic Echocardiogram Report Name: MICAH WOMACK Age: 68 yrs Gender: Female : 1950 Patient Status: Outpatient Patient Location: Study Date: 01/04/2019 02:08 PM Procedure: A two-dimensional transthoracic echocardiogram with color flow and Doppler was performed. The study was technically difficult with many images being suboptimal in quality. Images were not obtained from all of the standard acoustic windows due to the limited scope of the study. Reason For Study: MURMUR History: MURMUR. Ordering Physician: VICTOR M LEON Performed By: Elvia Diego Interpretation Summary The left ventricle is normal in size. There is normal left ventricular wall thickness. No True apical 2 chamber views obtained.Hence cannot comment on the apical anterior , the basal anterior, the basal inferior and apical inferior forde.The mid anterior , the mid inferior and the rest of the LV forde contract normally. .Normal LVEF is normal and is greater than 65% in the limited views. Doppler measurements suggest impaired left ventricular relaxation, which is associated with grade I/IV or mild diastolic dysfunction The study was technically difficult with many images being suboptimal in quality. There is no thrombus. Cannot assess ASD,VSD,or PFO. The right ventricle is not well visualized secondary to technical limitations Right atrium not well visualized secondary to technical limitations The left atrial size is normal. There is no evidence of mitral valve prolapse. There is no vegetation seen on the mitral valve. There is no mitral valve stenosis. There is a trace amount of mitral regurgitation There is no aortic valvular vegetation. There is no aortic valve stenosis There is no LVOT obstruction. No aortic regurgitation is present. There is no tricuspid stenosis. There is a mild amount of tricuspid regurgitation There is moderate pulmonary hypertension by echo RVSP is56 mm of Hg , with RA mean of 10. There is no pulmonic valvular stenosis. There is no pulmonic valvular regurgitation. The aortic root is normal size. The inferior vena cava was not visualized There is no pericardial effusion. MMode/2D Measurements & Calculations IVSd: 0.80 cm LVIDd: 4.8 cm FS: 41.6 % Ao root diam: 2.6 cm LVIDs: 2.8 cm EDV(Teich): 106.8 ml Ao root area: 5.2 cm2 LVPWd: 0.91 cm ESV(Teich): 29.4 ml EF(Teich): 72.5 % Doppler Measurements & Calculations MV E max ajith: MV dec slope: Ao V2 max: LV V1 max P.4 cm/sec 153.3 cm/sec 4.6 mmHg MV A max ajith: 363.5 cm/sec2 Ao max PG: LV V1 max: 108.1 cm/sec MV dec time: 0.20 sec9.4 mmHg 106.9 cm/sec MV E/A: 0.66 PA V2 max: TR max ajith: 79.7 cm/sec 340.0 cm/sec PA max P.5 mmHg TR max P.2 mmHg Left Ventricle The left ventricle is normal in size. There is normal left ventricular wall thickness. No True apical 2 chamber views obtained.Hence cannot comment on the apical anterior , the basal anterior, the basal inferior and apical inferior forde.The mid anterior , the mid inferior and the rest of the LV forde contract normally. .Normal LVEF is normal and is greater than 65% in the limited views. Doppler measurements suggest impaired left ventricular relaxation, which is associated with grade I/IV or mild diastolic dysfunction. There is no thrombus. Cannot assess ASD,VSD,or PFO. Right Ventricle The right ventricle is not well visualized secondary to technical limitations. Atria Right atrium not well visualized secondary to technical limitations. The left atrial size is normal. Mitral Valve There is no evidence of mitral valve prolapse. There is no vegetation seen on the mitral valve. There is no mitral valve stenosis. There is a trace amount of mitral regurgitation. Aortic Valve There is no aortic valvular vegetation. There is no aortic valve stenosis. There is no LVOT obstruction. No aortic regurgitation is present. Tricuspid Valve There is no tricuspid stenosis. There is a mild amount of tricuspid regurgitation. There is moderate pulmonary hypertension by echo. RVSP is56 mm of Hg , with RA mean of 10. Pulmonic Valve There is no pulmonic valvular stenosis. There is no pulmonic valvular regurgitation. Great Vessels The aortic root is normal size. The inferior vena cava was not visualized. Effusions There is no pericardial effusion. : VICTOR M LEON > Julee Lau
== END ==
LOC: SP 13:45
PROVIDERS: ATTEND Family Medicine
DX: I49.9 Cardiac arrhythmia, unspecified (principal); I27.20 Pulmonary hypertension, unspecified
CPT/HCPCS: 93306